=== PATIENT | female | born 1985 | race Caucasian/White ===

== ENCOUNTER 2025-07-23 21:32 | Emergency (ER) | payer MEDICAID, SELFPAY ==
--- OUTSIDE RECORDS SUMMARY | 2017-07-21 07:00 | XMS_ITS | Continuity of Care Document ---
Author Organization [employer] [facility] Address [address] [address] Phone Care Team Providers Care Manager Winter Name Role Phone Emmett Hahn MD Unavailable Unavailable Allergies, Adverse Reactions, Alerts Substance Reaction Status Criticality No Known Allergies Active No Inform ation Medications Medication Instructions Dosage Effective Dates (start - stop) Status Comments Effexor XR 150 mg capsule,extended release take 1 capsule by oral route every day 150 MG - Active Effexor XR 75 mg capsule,extended release take 1 capsule by oral route every day with food 75 MG - Active Total therapeuti c dose is 225 mg daily: one 150mg XR and one 75 mg XR daily. TriNessa (28) 0.18 mg(7)/0.215 mg(7)/0.25 mg(7)-35 mcg tablet take 1 tablet by oral route every day - Active Seroquel 100 mg tablet take 1 tablet by ORAL route every bedtime 100 MG - Active prazosin 5 mg capsule take 1 capsule by oral route every day 5 MG - Active acetaminophen 500 mg tablet take 1 tablet by oral route every 6 hours as needed 500 MG - Active Procedures Procedure Date Urin Pg Test Visual Color Comp 16 Drug Screen; Mx Drug Classes E 16 Offic/outpt E&m New Mod-hi 60 6 Advance Directives Directive Yes / No Effective Date File Name No Information Encounters Encounter Description Practice Location Reason(s) For Visit Diagnoses Date Provider Providers Copied on Encounter [employer] [facility], [address] [address], [place], [place], [id number] , tel: [phone] [facility], [facility]. NB No Information Jovani Christine. [address] [facility], [address], [place], [place], [id number] , . tel: [phone] Offic/outpt E&m New Mod-hi 60 [facility], [address] [facility] [address], [place], [place], [id number] , tel: [phone] [facility], [facility]. NB Heroin dependency and Opiate dependency (chief complaint) Heroin dependenceEncntr for laminated plastics assembler and gluer exam (general) (routine) w/o abn findingsMethamphetam ine dependenceModerate episode of recurrent major depressive disorder Jovani Christine. [address] [facility], [address], [place], [place], [id number] , . tel: [phone] Family History Family Member Type Diagnosis Age At Onset No Information Payers Payer name Insurance type Covered green party ID Authoriza derrick(s) [facility] CI 00 Social History Type Description Quantity Date Captured Comments Sex Female Smoking Status No Information Chief Complaint And Reason For Visit No Information Reason For Referral Reason For Referral No Information History Of Present Illness Encounter Date Complaint History Of Prese nt Illness Heroin dependency an d Opiate dependency 30 year old female admitted to [facility] for Rehab and needs a letter for clearance to fly to [place] tomorrow to [facility]. The Patient has a history of Heroin use x 1 year. She was sober x 2 weeks, but relapsed 1 month ago. She has been using 0.5gms snorts. last use was 2 weeks ago.Also admits to using Opiates (Vicodin/Oxy) x 5 years. She has been using 40-50mg. snort or by mouth per day. Last use was 70 days ago.Also admits to using Meth x 5 years. She has been using 1gm. Smoke/snort per day. Last use was 7 months ago. Prior Treatments: [facility] for Detox/Rehab 21 days and was sober for 2 months. Withdrawal Symptoms: NonePsyche issues: BipolarMedication: Effexor 150mg. once a day and Lasix (?) doseSleep preference: SeroquelSocial: smokes 1 pk per day is single with 3 children ages 13, 10 and 3 and is currently unemployed. Destination after detox: Patient [place] go to [place]: Heroin dependency an d Opiate dependency (comments) Patient has been on non-medical surveillance since arriving at [facility] on Friday05/24/16. She will be transferring to [facility]-owned or related facility in [place].Patient is medically stable for her flight tomorrow, 05/30/16.Patient is Mother of three children, ages 3, 10 and 13, in custody of Father and patient's Mother. Functional Status Date Functional Assessmen t No Information Instructions Date Instruction Additional Infor eitan Urine Drug Screen-HC 3 days per week and Random prn Related to Heroin dependence Assessments Type Assessment Date No Information Patient Care Teams Name Effective Dates (start - stop) Status Members No Information
--- OUTSIDE RECORDS SUMMARY | 2022-07-25 06:46 | XMS_ITS | Continuity of Care Document ---
Author Organization [facility] Address [address] [place] [address] Phone Care Team Providers Care Bee Farmer Name Role Phone Janey Paris APRN Unavailable Unavailable Allergies, Adverse Reactions, Alerts Substance Reaction Status Criticality codeine Nausea Active No Information Problems Condition Type Effective Dates (start - stop) Clini lissette Status Comments No Known Problems Advance Directives Directive Yes / No Effective Date File Name No Information Encounters Encounter Description Practice Location Reason(s) For Visit Diagnoses Date Provider [facility], [address] [place] [address], [id number], tel:[phone] [facility] No Information Jul-[address], [id number] [place], [place], [id number], . tel:[phone] [facility], [address] [place] [address], [id number], tel:[phone] [facility] PAP test (chief complaint) AnxietyEncounter for screening for malignant neoplasm of cervix [address], [id number] [place], [place], [id number], . tel:[phone] [facility], [address] [place] [address], [id number], tel:[phone] [facility] Anxiety (chief complaint)P reventive exam (chief complaint) Body mass index [BMI] 23.0-23.9, adultFatigueAnxietyADHD predominantly inattentive typeEncounter for general adult medical examination without abnormal findings 2 Inga Askew. [address] [place] [address], [id number] [place], [address], [place]. tel:[phone] [facility], [address] [place] [address], [id number], [place] tel:[phone] [facility] Encounter for dental exam and cleaning w abnormal findingsEncounter for dental exam and cleaning w/o abnormal findingsDental caries on pit and fissure surface penetrat into pulp 0 Kevin Davidson. [address], [id number] [place], [place], [id number]. tel:[phone] [facility], [address] [place] [address], [id number], [place] tel:[phone] [facility] Depression (chief complaint)f atigue (chief complaint) FatigueMajor depressive disorder, single episode, unspecified Feb- 6 Erin Ventura. [address] [place] [address], [id number] [place], [place], [id number]. tel:[phone] [facility], [address] [place] [address], [id number], [place] tel:[phone] [facility] Flu-like symptoms (chief complaint) InfluenzaCough Jan-0 2 6 Mannie Rain. [address] [place] [address], [id number] [place], [place], [id number]. tel:[phone] [facility], [address] [place] [address], [id number], [place] tel:[phone] [facility] Arthalgias (chief complaint) Carpal tunnel syndrome, unspecified upper limb Feb-0 4 6 Mannie Rain. [address] [place] [address], [id number] [place], [place], [id number]. tel:[phone] [facility], [address] [place] [address], [id number], tel:[phone] [facility] Wann Rash (chief complaint) Abscess 4 Mannie Rain. [address] [place] [address], [id number] [place], [place], [id number]. tel:[phone] [facility], [address] [place] [address], [id number], tel:[phone] PM [facility] rash (chief complaint) Rash and other nonspecific skin eruptionDepression 4 No Information [facility], [address] [place] [address], [id number], tel:[phone] [facility] sinus symptoms (acute) (chief complaint)r poli (chief complaint) CoughSinusitis, AcuteDermatophytosis of other specified sites 3 Akil Crystal. [address] [place] [address], [id number] [place], [place], [id number], [place]. tel:[phone] [facility], [address] [place] [address], [id number], tel:[phone] PM [facility] infection (soft tissue) (chief complaint) Cellulitis 3 No Information Family History Family Member Type Diagnosis Age At Onset Mother Problem (finding) diabetes melli tus in first degree relative Maternal grandmother Problem (finding) tremors Payers Payer name Insurance type Covered republican ID Authoriza tion(s) No Information Social History Type Description Quantity Date Captured Comments Alcohol Use Details Unknown Caffeine Use Details Unknown Tobacco Use Status No Information Smoking Status No Information Sex Female Sexual Orientation Straight or heterosexual Gender Identity Female Chief Complaint And Reason For Visit No Information Plan Of Treatment Date Type Action Status Goal Unhealthy drug use screening due Goal Hepatitis C Scre ening. Due on due Goal PICKER BOX OPERATOR exam. Due on due Goal Lipid Panel. Due on due Goal PAP. Due on due Goal H&P. Due on due Goal HPV. Due on due Goal PICKER BOX OPERATOR exam. Due on due Goal Hepatitis C Scre ening. Due on due Goal HPV. Due on due Goal PAP. Due on due Goal Unhealthy drug use screening due Goal H&P. Due on due Goal Lipid Panel. Due on due Goal H&P. Due on due Goal Lipid Panel. Due on due Goal PICKER BOX OPERATOR exam. Due on due Goal PAP. Due on due Goal Hepatitis C Scre ening. Due on due Goal HPV. Due on due Goal Unhealthy drug use screening due Goal Lifestyle education regardin g diet completed Goal Tdap. Due on due Goal Influenza vaccine. Due on due Goal Diabetes Screening. Due on A due Goal Pap/HPV testing. Due on due Goal PAP. Due on due Goal PICKER BOX OPERATOR exam. Due on due Goal Td vaccine. Due on 16 due Goal Breast exam. Due on 016 due Goal Influenza vaccine. Due on due Goal Breast exam. Due on 016 due Goal Diabetes Screening. Due on due Goal Td vaccine. Due on 16 due Goal Pap/HPV testing. Due on due Goal PAP. Due on due Goal PICKER BOX OPERATOR exam. Due on due Goal Tdap. Due on due Goal H&P. Due on due Goal Influenza vaccine. Due on due Goal Diabetes Screening. Due on due Goal Screening Summary. Due on due Goal Anxiety/Depressi on Screen (PHQ-2). Due on due Goal Breast exam. Due on 016 due Goal PAP. Due on due Goal PICKER BOX OPERATOR exam. Due on due Goal Tdap. Due on due Goal Td vaccine. Due on 16 due Goal Pap/HPV testing. Due on due Goal PICKER BOX OPERATOR exam. Due on due Goal Influenza vaccine. Due on due Goal PAP. Due on due Goal Td vaccine. Due on 14 due Goal Breast exam. Due on 014 due Goal Tdap. Due on due Goal Td vaccine. Due on 14 due Goal PAP. Due on due Goal Screening Summary. Due on due Goal Tdap. Due on due Goal Breast exam. Due on 013 due Goal PICKER BOX OPERATOR exam. Due on due Referral Ordered: Referrals: Psychiatry. Evaluate and treat Appointment date/timeframe: 3 Days ordered Referral Ordered: Referrals: Social Work. Evaluate and treat ordered Referral Ordered: Referrals: Orthopedic Surgery. Follow-up and Treat ordered Future Order: Lab Order CBC With Differential/Platelet ([id number]), Ordered on: Ordered Future Order: Lab Order Comp. Me tabolic Panel (14) ([id number]), Ordered on: Ordered Future Order: Lab Order Hepatiti s C virus NS5A drug resistance ([id number]), Ordered on: Ordered Future Order: Lab Order Lipid Pa renate w/ Chol/HDL Ratio ([id number]), Ordered on: Ordered Future Order: Lab Order Vitamin D, 25-Hydroxy ([id number]), Ordered on: Ordered Future Order: Lab Order Urinalys is, Routine ([id number]), Ordered on: Ordered Future Order: Lab Order TSH ([id number]), Ord ered on: Ordered History Of Present Illness Encounter Date Complaint History Of Prese nt Illness PAP test Last LMP was 07/2022. Negative for: breast discharge, breast lump(s) and breast pain. Positive for: breast self exam. Associated symptoms include anxiety. Pertinent negatives include abnormal bleeding (hematology), abnormal vaginal bleeding, decreased libido, depression, difficulty falling sleep, dyspareunia, history of infertility, nocturia, sexual dysfunction, sleep disturbances, urinary incontinence, urinary urgency, vaginal discharge and vaginal itching. Diet healthy. The client does not use tobacco. She does drink alcohol. Preventive exam Menopausal sympt oms negative for: night sweats. Associated symptoms include anxiety and difficulty falling sleep. Pertinent negatives include depression and urinary incontinence. Diet healthy. The client does not use tobacco. She does drink alcohol. Additional information: pt is here for a physical. pt needs to be evaluated for ADHD and worseing anxiety/depression. pt is also requesting labs. pt was recommended to have a pap. . Anxiety There is worseni ng of previously reported symptoms. The client reports functioning as somewhat difficult. The client presents with anxious/fearful thoughts, difficulty concentrating, difficulty falling asleep, diminished interest or pleasure and fatigue but denies compulsive thoughts, decreased need for sleep, depressed mood, difficulty staying asleep, easily startled, excessive worry, feelings of guilt, feelings of invulnerability, increased energy, hallucinations, increased libido, loss of appetite, paranoia, poor judgment, racing thoughts, restlessness or thoughts of or suicide. The client's risk factors exclude alcoholism, childhood abuse or neglect, chronic illness, of a friend or loved one, drug abuse, family history of depression, family history of anxiety, family history of bipolar disorder, financial worries, history of depression, history of suicidal attempts, medications, recent childbirth, relationship problems, social isolation, unemployment and victim of abuse or violence. The Anxiety is aggravated by social interactions but not with alcohol use, conflict or stress, drug use, lack of sleep, menstruation, traumatic memories or winter season. The client's symptoms are not relieved by alcohol, cessation of menses, drugs, exercise, medications, sunlight or warm weather. The client denies any chronic pain, headache, irritability, nausea, sweating, trembling, urinary frequency, vomiting and weight gain. Depression There is worseni ng of previously reported symptoms. The patient reports functioning as very difficult. The patient presents with anxious/fearful thoughts, depressed mood, difficulty concentrating, difficulty falling asleep, diminished interest or pleasure, easily startled, fatigue and feelings of guilt. The patient's risk factors include of a friend or loved one, family history of anxiety, financial worries, history of depression, recent childbirth and relationship problems. The Depression is aggravated by conflict or stress. Interventions the patient has tried have not provided any relief. Additional information: prior of father at age 7, reports has never gotten over this , recent battles with ex (FOB) over possible custody riley. fatigue This is an initi al visit. The symptom(s) began gradually. The symptoms have worsened. The patient presents with difficulty concentrating and fatigue. Risk factors include depression. The symptoms are aggravated by lack of sleep, stress and work issues. Interventions the patient has tried have not provided any relief. The fatigue is associated with loss of interest and myalgia. Flu-like symptoms The symptoms b jyoti 1 day ago. The patient presents with chills, cough, fatigue, fever, generalized weakness and pharyngitis. The illness is associated with rhinorrhea. Arthalgias Onset: 2 weeks a go. It occurs intermittently and is worsening. Location: bilateral hand (finger(s)). The pain radiates to the arms bilaterally. The pain is numbness and stings. Context: there is no injury. Additional information: states both hands are painful and fingers are numb. Rash The patient pres ents for Rash. This episode began 1 week ago. The symptom(s) are described as mild, worse and occurs infrequently. Affected area(s) include left arm. The patient describes the affected area(s) as burning, itchy, oozing and red. Associated symptoms include erythema (skin) and pruritus. Additional information: did napply topical rx from her boyfriend. Instructions Date Instruction Additional Infor eitan Healthy diet and exe rciseMonthly self breast exam Related to Encounter for screening for malignant neoplasm of cervix RTC after appt Related to Anxie ty [facility] - Information e xplained to pt in a way that is easy to understand, and pt expressed understanding after all questions were answered and treatment options were discussed. Sufficient time was taken to carefully listen to the pt and caregiver, when appropriate. Addressed their concerns, health problems, worries , stressors and mental health.addressed concerns, health problems, worries, stressors, and mental health. Related to Encounter for general adult medical examination without abnormal findings Weight monitoring Related to Bod y mass index [BMI] 23.0-23.9, adult Lifestyle education regarding di et Related to Body mass index [BMI] 23.0-23.9, adult rx sent Related to Cough + A; rx tamiflu Related to Influ bear has slight relief w OTC Ib- will rx Ib for her and place orthopedic referral for possible surgery; lbs ordered Related to Carpal tunnel syndrome, unspecified upper limb IM rocephin and f/u w sabina atb; warm soaks urged and RTC if no better Related to Abscess Assessments Type Assessment Date No Information
[2025-07-23 21:42] VITALS: BP 122/77; PULSE 102; RESP 16; TEMP 36.9; O2SAT 98; BMI 25.8
--- NOTE | 2025-07-23 22:56 | CTR_ITS ---
PROCEDURE INFORMATION: Exam: CT Abdomen And Pelvis With Contrast Exam date and time: 07/24/2025 12:24 AM Age: 40 years old Clinical indication: Nausea and vomiting; Abdominal pain; Generalized; Prior surgery; Surgery date: 6+ months; Surgery type: Procedure for ectopic. Patient did not specify. ; Additional info: Diffuse abd pain TECHNIQUE: Imaging protocol: Computed tomography of the abdomen and pelvis with contrast. Radiation optimization: All CT scans at this facility use at least one of these dose optimization techniques: automated exposure control; mA and/or kV adjustment per patient size (includes targeted exams where dose is matched to clinical indication); or iterative reconstruction. Contrast material: OMNI 350; Contrast volume: 100 ml; Contrast route: INTRAVENOUS (IV); COMPARISON: No relevant prior studies available. RADIATION DOSE METRICS: Total DLP (mGy-cm): 631.08 FINDINGS: Lungs: Clear basilar lung parenchyma. Pleural spaces: No pleural fluid. Heart: Normal heart size. Liver: Homogeneous low attenuation throughout the liver is compatible with fatty infiltration. Liver measures 19.7 cm in length. Gallbladder and biliary ducts: Postprandial gallbladder is contracted around several gallstones. No biliary tree dilation. Pancreas: No pancreatic edema or mass. Spleen: Spleen measures 11.3 cm in length. Adrenal glands: Normal configuration. Kidneys and ureters: Kidneys enhance symmetrically and demonstrate no evidence of mass, calculus, obstruction, or inflammation. Stomach and bowel: Postprandial stomach without visible mass or ulcer. Normal caliber small bowel. Large volume fecal debris noted throughout the colon. No bowel wall thickening. Appendix: Normal appendix is confirmed. Intraperitoneal space: No free air. No significant fluid collection. Vasculature: Mild aortoiliac calcific atherosclerosis without aneurysm. Mesenteric arteries enhance normally. Patent bilateral renal arteries. Patent portal vein and tributaries. Normal appearing systemic venous structures. Patent hepatic veins. Lymph nodes: No enlarged lymph nodes. Urinary bladder: Unremarkable as visualized. Reproductive: Physiologic appearance of the uterus and ovaries. Recently ruptured left ovarian follicle noted. Bones/joints: No fracture or destructive lesion. Soft tissues: Unremarkable. CT/CT abdomen pelvis w con* [id number] IMPRESSION: 1. Large volume fecal debris throughout the colon suggests constipation which could be symptomatic. Otherwise no acute abnormality identified to explain patient's abdomen pain. A normal appendix is confirmed and there is no evidence of urolithiasis. The postprandial gallbladder is contracted despite presence of gallstones. No features of cholecystitis are evident. 2. The stomach is distended with ingested material. Given patient's symptoms of nausea and vomiting, if there are clinical concerns for gastroparesis, nuclear medicine gastric emptying study may be helpful.
--- NOTE | 2025-07-23 23:03 | ED_ITS ---
HPI - Abdominal Pain 2 General: Chief Complaint: Abdominal Pain Stated Complaint: abd pain and breast, flank pain also Time Seen by Provider: 07/23/25 21:37 Source: patient Mode of arrival: ambulatory Limitations: no limitations History of Present Illness: This patient is a 40-year-old female who presents emergency department complaining of abdominal pain. She states that she thinks she is having a gallbladder attack and that she has followed up with provider [place] in regards to possibly having it removed. I have no previous records of her being seen here in the emergency department or seeing general surgery here. She also states that she is having pain in her ovaries and kidneys. Pain began 30 minutes prior to coming in to the emergency department, states that it has since subsided. She has been having nausea for a few days, no vomiting or diarrhea. Currently stating that the pain she does have is diffuse but mild. She is been taking Tylenol and ibuprofen. She has been in a recovery home for the past few days as well, and states that there is a chance that she might be due to some tenderness in her breasts. Her vitals are stable, she is nontoxic- appearing at this time. No fevers reported. No previous abdominal surgeries reported. MD elicited complaint: abdominal pain Onset (ago): hour(s) Pain Consistency: other (improved) Location: Diffuse Severity: mild Quality: cramping Associated Symptoms: Reports nausea; Denies bloating, change in stool character, chills, constipation, diarrhea, dysuria, fever(s), hematochezia, hematuria and vomiting Related Data Previous Rx's ?Medication ?Instructions ?Recorded polyethylene glycol 3350 17 4 g PO DAILY #119 grams gram/dose oral powder (Miralax) Allergies Allergy/AdvReac Type Severity Reaction Status Date / Time haloperidol (From Haldol) Allergy Unknown Verified 07/23/25 21:50 any psych med Allergy Unknown Uncoded 07/23/25 21:50 Review of Systems 2 General: Reports: 10 or more systems reviewed and unremarkable except in HPI and below Const: Denies: fever(s), chills, change in appetite, change in weight or diaphoresis ENMT: Denies: throat pain or hoarseness Card: Denies: chest pain, palpitations or lightheadedness Resp: Denies: dyspnea, productive cough or wheezing GI: Reports: abdominal pain and nausea; Denies: vomiting, diarrhea, constipation, bloating, change in stool character or hematochezia : Reports: flank pain; Denies: difficulty voiding, dysuria, urinary frequency, urinary urgency, hematuria, vaginal bleeding or vaginal discharge Musc: Denies: neck pain or back pain Skin/Breast: Denies: rash or new lesions Neuro: Denies: headache(s) or dizziness Physical Exam 2 Const: COMMON NORMALS: no acute distress, average body habitus, patient oriented x3, no limitations, healthy appearing, alert and well nourished G ENERAL APPEARANCE: cooperative and comfortable ORIENTATION/CONSCIOUSNESS: Yes awake Eye: COMMON NORMALS: Equal, round and reactive pupils present, EOMs intact bilaterally, conjunctivae normal and normal visual pelletier by confrontation C ONJUNCTIVA: Yes conjunctivae normal PUPIL: Yes Equal, round and reactive pupils present Neck/C-Spine: COMMON NORMALS: full ROM, supple, no meningeal signs and no JVD Resp: COMMON NORMALS: normal respiratory effort, No retractions, No use of accessory muscles and clear to auscultation bilaterally AUSCULTATION: clear to auscultation bilaterally, no crackles, no rales, no rhonchi and no wheezes Cardio: COMMON NORMALS: no JVD, regular rate, regular rhythm, No gallops present (Cardio), No clicks present (Cardio), No murmurs present (Cardio) and No rub (Cardio) RATE: regular rate RHYTHM: regular rhythm GI: COMMON NORMALS: Soft to palpation, No hepatosplenomegaly present and no masses AUSCULTATION: Yes normoactive bowel sounds PALPATION: Yes Soft to palpation, No Guarding due to palpation present (GI), No Rigid due to palpation and Yes No hepatosplenomegaly present RECTAL EXAM: deferred OTHER: Diffuse tender to palpation : COMMON NORMALS: Yes no CVA tenderness BLADDER/KIDNEY EXAM: Yes no CVA tenderness Back/Pelvis: COMMON NORMALS: no CVA tenderness Extremity: COMMON NORMALS: normal to inspection and full ROM Neuro: COMMON NORMALS: patient oriented x3, moves all extremities, no focal motor deficits and no sensory deficits noted SENSORIUM/ORIENTATION: Yes alert MENINGEAL SIGNS: Yes no meningeal signs Psych: COMMON NORMALS: mental status grossly normal, cooperative and speech normal SPEECH: Yes normal speech Skin: COMMON NORMALS: no rashes or lesions noted GENERAL SKIN EXAM: no rashes or lesions noted Course 2 Vital Signs: Vital signs: Vital Signs Temperature 98.4 F 07/23/25 21:42 Pulse Rate 94 07/24/25 01:00 Respiratory Rate 16 07/23/25 21:42 Blood Pressure 104/64 07/24/25 01:00 Pulse Oximetry 95 07/24/25 01:00 Oxygen Delivery Me thod Room Air 07/24/25 01:00 MDM - Abdominal Pain Medical Decision Making Patient presented with diffuse abdominal pain, stating she was having a gallbladder attack. Also was concerned about her ovaries and that she might be . Mild diffuse tenderness palpation on exam, nonspecific. Rest of her exam was reassuring and her vitals have been stable. She is nontoxic- appearing as well. Labs were all unremarkable, negative. No UTI on her urinalysis. However on CT there is large volume focal debris suggesting constipation, and I do think that this is cause for her pain. She states that she did just buy MiraLAX today she thought that this was what was going on, told her to take this and I also will send her home with mixture mineral oil, mag citrate, and lactulose to help clear her out. Told her to increase fluid intake and dietary fiber and return with any new or worsening. She agrees with this plan. Lab Data 07/23/25 23:16 07/23/25 23:16 Labs/Radiology: Radiology Impressions Abdomen/Pelvis CT 07/23/25 22:56 IMPRESSION: 1. Large volume fecal debris throughout the colon suggests constipation which could be symptomatic. Otherwise no acute abnormality identified to explain patient's abdomen pain. A normal appendix is confirmed and there is no evidence of urolithiasis. The postprandial gallbladder is contracted despite presence of gallstones. No features of cholecystitis are evident. 2. The stomach is distended with ingested material. Given patient's symptoms of nausea and vomiting, if there are clinical concerns for gastroparesis, nuclear medicine gastric emptying study may be helpful. Laboratory Results WBC 10.16 10^3/uL (3.29-11.43) 07/23/25 23:16 RBC 3.81 10^6/uL (3.85-5.65) L 07/23/25 23:16 Hgb 11.30 g/dL (11.27-16.99) 07/23/25 23:16 Hct 34.5 % (36-47) L 07/23/25 23:16 MCV 90.6 fl (85-98) 07/23/25 23:16 MCH 29.7 pg (27-33) 07/23/25 23:16 MCHC 32.8 g/dL (30-55) 07/23/25 23:16 RDW 15.4 % (12.1-15.1) H 07/23/25 23:16 Plt Count 205 10^3/cmm (157-399) 07/23/25 23:16 MPV 9.8 fL (7.4-10.4) 07/23/25 23:16 Neut % (Auto) 61.8 % 07/23/25 23:16 Lymph % (Auto) 30.1 % 07/23/25 23:16 [place] % (Auto) 5.6 % 07/23/25 23:16 Eos % (Auto) 2.1 % 07/23/25 23:16 Baso % (Auto) 0.2 % 07/23/25 23:16 Neut # (Auto) 6.28 10^3/uL (1.8-7.7) 07/23/25 23:16 Lymph # (Auto) 3.1 10^3/uL (0.8-4.8) 07/23/25 23:16 [place] # (Auto) 0.6 10^3/uL (0.2-0.9) 07/23/25 23:16 Eos # (Auto) 0.2 10^3/uL (0.0-0.8) 07/23/25 23:16 Baso # (Auto) 0.0 10^3/uL (0.0-0.1) 07/23/25 23:16 Nucleated RBC % (auto) 0 % 07/23/25 23:16 Nucleated RBCs # 0.0 /100WBC 07/23/25 23:16 Sodium 137 mmol/L (136-145) 07/23/25 23:16 Potassium 4.1 mmol/L (3.5-5.1) 07/23/25 23:16 Chloride 100 mmol/L (98-107) 07/23/25 23:16 Carbon Dioxide 28 mmol/L (22-29) 07/23/25 23:16 Anion Gap 13.1 (5-19) 07/23/25 23:16 BUN 18 mg/dL (6-20) 07/23/25 23:16 Creatinine 0.8 mg/dL (0.5-0.9) 07/23/25 23:16 GFR Calculation 78.7 mL/min (90-130) L 07/23/25 23:16 Glucose 98 mg/dL (65-115) 07/23/25 23:16 Calculated Osmolality 286 mOsm/kg (285-295) 07/23/25 23:16 Calcium 9.1 mg/dL (8.5-10.5) 07/23/25 23:16 Total Bilirubin 0.2 mg/dL (0.15-1.2) 07/23/25 23:16 AST 13 U/L (0-32) 07/23/25 23:16 ALT 14 U/L (0-33) 07/23/25 23:16 Alkaline Phosphatase 102 U/L (35-105) 07/23/25 23:16 Total Protein 6.9 g/dL (6.6-8.7) 07/23/25 23:16 Albumin 3.9 g/dL (3.5-5.2) 07/23/25 23:16 Globulin 3.0 g/dL (1.3-4.6) 07/23/25 23:16 Lipase 44 U/L (13-60) 07/23/25 23:16 HCG, Qual Negative (Negative) 07/23/25 23:17 Urine Color Yellow (Yellow) 07/23/25 23:17 Urine Appearance Cloudy (CLEAR) A 07/23/25 23:17 Urine pH 7.5 (5-7) 07/23/25 23:17 Ur Specific [place] 1.019 (1.005-1.030) 07/23/25 23:17 Urine Protein Negative (Negative) 07/23/25 23:17 Urine Glucose (UA) Negative (Normal) 07/23/25 23:17 Urine Ketones Negative (Negative) 07/23/25 23:17 Urine Blood Negative (Negative) 07/23/25 23:17 Urine Nitrate Negative (Negative) 07/23/25 23:17 Urine Bilirubin Negative (Negative) 07/23/25 23:17 Urine Urobilinogen 1.0 mg/dL (Negative) 07/23/25 23:17 Ur Leukocyte Esterase Negative (Negative) 07/23/25 23:17 Urine RBC 0-2 /hpf (0-2) 07/23/25 23:17 Urine WBC 0-5 /hpf (0-5) 07/23/25 23:17 Ur Squamous Epith Cells 0-5 /hpf (0-5) 07/23/25 23:17 Amorphous Sediment Not Reportable 07/23/25 23:17 Urine Bacteria None seen /hpf (NONE) 07/23/25 23:17 Hyaline Casts 0-4 /lpf H 07/23/25 23:17 All radiology interpretation(s) finalized by discharge Discharge Plan Discharge Patient Disposition: Home Clinical Impression: Constipation Qualifiers: Constipation type: unspecified constipation type Qualified Code(s): K59.00 - Constipation, unspecified Condition: Stable Prescriptions: New polyethylene glycol 3350 [Miralax] 17 gram/dose powder 4 g PO DAILY Qty: 119 0RF Discharge Orders: Discharge ED (Routine); Ordered 07/24/25 Ordered By: John Muniz Patient Instructions: Patient Portal & [facility] Instructions Activity Restrictions/Additional Instructions: Constipation Discharge Instructions Discharge Instructions: Constipation Diagnosis Context: 40-year-old female with constipation. No acute pathology identified on CT abdomen/pelvis; laboratory results reassuring. 1. Education and Reassurance - No evidence of bowel obstruction, mass, or acute disease. - Constipation is common and often functional; most cases respond to conservative management. 2. Lifestyle and Dietary Modifications (First-Line Therapy) - Increase dietary fiber: Target 20?35 g/day from food sources (whole grains, fruits, vegetables, legumes). Gradually titrate to minimize bloating. - Both soluble and insoluble fiber are effective; a combination is often better tolerated than psyllium alone. - Hydration: Aim for at least 1.5?2 liters of water daily, unless contraindicated. - Physical activity: Encourage regular exercise (e.g., brisk walking 20?30 min most days). - Regular toileting habits: Respond promptly to the urge to defecate; avoid prolonged straining or delaying bowel movements. - Meal timing: Consuming meals >=00 kcal can stimulate colonic motility. 3. Medication Review - Discontinue or adjust medications that may contribute to constipation (e.g., opioids, anticholinergics, calcium channel blockers, iron, calcium supplements) if clinically appropriate. 4. Pharmacologic Therapy (If Lifestyle Measures Insufficient) - Bulk-forming agents: Psyllium, methylcellulose, or polycarbophil may be used if dietary fiber is inadequate or not tolerated. - Osmotic laxatives: Polyethylene glycol (PEG), lactulose, or magnesium hydroxide are appropriate first-line agents if fiber alone is insufficient. - PEG 3350: Typical adult dose is 17 g dissolved in 4?8 oz of water once daily; titrate to effect. - Stimulant laxatives: Bisacodyl or senna may be used as rescue therapy or second-line agents if needed. - Use intermittently to avoid dependence. 5. Additional Measures - Consider use of a footstool during defecation to optimize anorectal angle. - Treat any coexisting anorectal conditions (e.g., hemorrhoids, fissures) as indicated. 6. Follow-Up and When to Seek Care - Schedule outpatient follow-up if symptoms persist beyond 4?6 weeks despite above measures, or sooner if symptoms worsen. - Return for evaluation if any of the following develop: - New or worsening abdominal pain - Vomiting - Rectal bleeding - Unintentional weight loss - Change in stool caliber - Family history of colorectal cancer - Symptoms of bowel obstruction (e.g., inability to pass gas or stool, severe distention) 7. Referral Considerations - If refractory to first- and second-line therapy, consider referral to gastroenterology for further evaluation (e.g., anorectal manometry, balloon expulsion test, colonic transit studies). - Pelvic floor therapy with biofeedback may be indicated for suspected defecatory disorders. Summary: Most cases of constipation without alarm features or acute pathology respond to conservative management. Escalate therapy as needed and monitor for development of concerning symptoms. Print Language: Danish Coding Level of Care Code ED Internet Marketing Analyst for Kenneth Frazier
[2025-07-23 23:20] LABS: Hematocrit 34.5 % (36-47); Hemoglobin 11.30 g/dL (11.27-16.99); Mean Corpuscular HGB Conc 32.8 g/dL (30-55); Mean Corpuscular Hemoglobin 29.7 pg (27-33); Mean Corpuscular Volume 90.6 fl (85-98); Nucleated Red Blood Cells % 0 %; Platelet Count 205 10^3/cmm (157-399); Red Blood Count 3.81 10^6/uL (3.85-5.65); White Blood Count 10.16 10^3/uL (3.29-11.43)
[2025-07-23] MEDS: ondansetron 2 mg/ML SDV 2 mL 4 MG IVP (23:36)
[2025-07-23 23:41] VITALS: BP 104/60; PULSE 84; O2SAT 96
[2025-07-23 23:46] LABS: Alanine Aminotransferase 14 U/L (0-33); Albumin Level 3.9 g/dL (3.5-5.2); Alkaline Phosphatase 102 U/L (35-105); Anion Gap 13.1 (5-19); Aspartate Amino Transferase 13 U/L (0-32); Blood Urea Nitrogen 18 mg/dL (6-20); Calcium 9.1 mg/dL (8.5-10.5); Carbon Dioxide 28 mmol/L (22-29); Chloride 100 mmol/L (98-107); Creatinine Clr Calc Pharmacy 100.0531; Globulin 3.0 g/dL (1.3-4.6); Glucose 98 mg/dL (65-115); Lipase 44 U/L (13-60); Osmolality Calculated 286 mOsm/kg (285-295); Potassium 4.1 mmol/L (3.5-5.1); Sodium 137 mmol/L (136-145); Total Protein 6.9 g/dL (6.6-8.7)
[2025-07-24 00:04] LABS: HCG Qualitative Urine. Negative (Negative)
[2025-07-24] MEDS: iohexol 350 mg/mL 500 mL Btl (per mL) IV (00:26)
[2025-07-24 01:00] VITALS: BP 104/64; PULSE 94; O2SAT 95
[2025-07-24 01:02] LABS: Glucose Urine UA Negative (Normal); Nitrate Urine Negative (Negative); Specific Gravity, Urine 1.019 (1.005-1.030)
[2025-07-24 01:07] LABS: Add Urine Microscopic? YES
[2025-07-24] MEDS: lactulose oral liq 20 gm/30 mL UDC 30 GM PO (02:01)
[2025-07-24] MEDS: magnesium citrate Btl 296 mL PO (02:02)
== END 2025-07-24 02:04 | disposition home or self-care (01) ==
PROVIDERS: Emergency Provider Physician Assistant
DX: K59.00 Constipation, unspecified (principal)
CPT/HCPCS: 36415; 74177; 80053; 81001; 81025; 83690; 85025; 96361; 96374; 99285; J2405; J7040; J9999

== ENCOUNTER 2025-07-29 12:05 | Inpatient (IN) | payer MEDICAID, SELFPAY ==
--- NOTE | 2025-07-29 12:11 | W.ED.PSYCHS ---
HPI - Psych General: Chief Complaint: Psychiatric Symptoms Stated Complaint: 96 History of Present Illness: 40-year-old female with a history of psychiatric issues and who is in a recovery center who presents emergency room from psychiatric clinic on a 96-hour hold. Apparently at the recovery unit she is at she would remain naked and try to hug the other people that were there. She reported to therapist that she was currently suicidal. When I talk to her she has flight of ideas and does report that she feels suicidal. Related Data Previous Rx's ?Medication ?Instructions ?Recorded polyethylene glycol 3350 17 4 g PO DAILY #119 grams 07/24/25 gram/dose oral powder (Miralax) cephalexin 500 mg tablet 500 mg PO TID 7 days #21 tabs 07/29/25 Allergies Allergy/AdvReac Type Severity Reaction Status Date / Time haloperidol (From Haldol) Allergy Unknown Verified 07/23/25 21:50 any psych med Allergy Unknown Uncoded 07/23/25 21:50 Review of Systems Narrative: Constitutional symptoms: Negative except as documented in HPI. Skin symptoms: Negative except as documented in HPI. Eye symptoms: Negative except as documented in HPI. ENMT symptoms: Negative except as documented in HPI. Respiratory symptoms: Negative except as documented in HPI. Cardiovascular symptoms: Negative except as documented in HPI. Gastrointestinal symptoms: Negative except as documented in HPI. Genitourinary symptoms: Negative except as documented in HPI. Musculoskeletal symptoms: Negative except as documented in HPI. Neurologic symptoms: Negative except as documented in HPI. Psychiatric symptoms: Negative except as documented in HPI. Endocrine symptoms: Negative except as documented in HPI. Physical Exam Narrative: EXAM NARRATIVE: General: Alert, no acute distress. Skin: Warm, dry. Head: Normocephalic, atraumatic. Neck: Supple, trachea midline. Eye: Extraocular movements are intact. Ears, nose, mouth and throat: mucosa moist. Cardiovascular: Regular, Normal peripheral perfusion. Respiratory: Lungs are clear to auscultation, respirations are non-labored, breath sounds are equal, Symmetrical chest wall expansion. Gastrointestinal: Soft, Nontender, Non distended Musculoskeletal: Normal ROM, no deformity. Neurological: Alert and oriented, No focal neurological deficit observed. Psychiatric: Pressured speech at times, she does endorse suicidal thoughts. She wants help she says Course Vital Signs: Vital signs: Vital Signs Temperature 98.1 F 07/29/25 12:19 Pulse Rate 100 07/29/25 12:19 Respiratory Rate 18 07/29/25 12:19 Blood Pressure 167/72 07/29/25 12:19 Pulse Oximetry 99 07/29/25 12:19 Oxygen Delivery Me thod Room Air 07/29/25 12:19 MDM - Psych Medical Decision Making Medical decision making: Differential diagnosis for patient with reported psychosis and suicidal ideation with plan for psychiatric admission including but not limited to and based on the above HPI, review of systems and physical exam: concerns for infection, alcohol intoxication, cardiac issues or other medical problems prior to psychiatric admission. Orders placed to evaluate differential diagnosis based on the above differential, HPI and physical exam labwork, ekg ordered to evaluate the pathologies and to clear the patient medically prior to psychiatric admission EKG: Time 1235. Rate 79. Normal sinus rhythm, No ST-T changes, no ectopy, normal MN & QRS intervals, This was reviewed and interpreted by myself the ER physician at 1240 Lab Review: Laboratory results were reviewed and interpreted by myself the emergency room physician. - Medically cleared. - EKG shows no ischemic changes. - Blood alcohol level is negative, as well as salicylate and Tylenol. - Drug screen is negative - Patient does have urinary tract infection. First dose of Keflex here. Recommend 500 mg 3 times daily for the next 7 days. - No anemia. - BUN and creatinine are within normal limits. I reviewed the patient's medical record. Consultation: I spoke with Dr. Lopez who is on-call for psychiatry who agrees to admission. Assessment and plan: Suicidal ideation Psychosis Urinary tract infection ?First dose Keflex in the emergency room -Admission to neuropsychiatric unit for continued evaluation and treatment. - All lab work was reviewed and interpreted personally by myself, the ER physician - Evaluation and treatment of this problem were appropriate in the emergency setting Lab Data 07/29/25 12:26 07/29/25 12:26 Laboratory Results WBC 8.74 10^3/uL (3.29-11.43) 07/29/25 12:26 RBC 3.74 10^6/uL (3.85-5.65) L 07/29/25 12:26 Hgb 11.20 g/dL (11.27-16.99) L 07/29/25 12:26 Hct 33.7 % (36-47) L 07/29/25 12: MCV 90.1 fl (85-98) 07/29/25 12: MCH 29.9 pg (27-33) 07/29/25 12: MCHC 33.2 g/dL (30-55) 07/29/25 12: RDW 15.4 % (12.1-15.1) H 07/29/25 12: Plt Count 280 10^3/cmm (157-399) 07/29/25 12: MPV 9.6 fL (7.4-10.4) 07/29/25 12: Neut % (Auto) 56.8 % 07/29/25 12: Lymph % (Auto) 35.4 % 07/29/25 12: [place] % (Auto) 5.0 % 07/29/25 12: Eos % (Auto) 2.1 % 07/29/25 12: Baso % (Auto) 0.5 % 07/29/25 12: Neut # (Auto) 4.97 10^3/uL (1.8-7.7) 07/29/25 12: Lymph # (Auto) 3.1 10^3/uL (0.8-4.8) 07/29/25 12: [place] # (Auto) 0.4 10^3/uL (0.2-0.9) 07/29/25 12: Eos # (Auto) 0.2 10^3/uL (0.0-0.8) 07/29/25 12: Baso # (Auto) 0.0 10^3/uL (0.0-0.1) 07/29/25 12: Nucleated RBC % (auto) 0 % 07/29/25 12: Nucleated RBCs # 0.0 /100WBC 07/29/25 12:26 Sodium 137 mmol/L (136-145) 07/29/25 12: Potassium 3.8 mmol/L (3.5-5.1) 07/29/25 12: Chloride 102 mmol/L (98-107) 07/29/25 12: Carbon Dioxide 24 mmol/L (22-29) 07/29/25 12: Anion Gap 14.8 (5-19) 07/29/25 12:26 BUN 15 mg/dL (6-20) 07/29/25 12:26 Creatinine 0.6 mg/dL (0.5-0.9) 07/29/25 12:26 GFR Calculation 109.6 mL/min (90-130) 07/29/25 12: Glucose 104 mg/dL (65-115) 07/29/25 12:26 Calculated Osmolality 285 mOsm/kg (285-295) 07/29/25 12:26 Calcium 8.7 mg/dL (8.5-10.5) 07/29/25 12: Total Bilirubin 0.2 mg/dL (0.15-1.2) 07/29/25 12: AST 8 U/L (0-32) 07/29/25 12: ALT 6 U/L (0-33) 07/29/25 12: Alkaline Phosphatase 101 U/L (35-105) 07/29/25 12: Total Protein 6.9 g/dL (6.6-8.7) 07/29/25 12: Albumin 3.7 g/dL (3.5-5.2) 07/29/25 12: Globulin 3.2 g/dL (1.3-4.6) 07/29/25 12: TSH 1.50 uIU/mL (0.27-4.20) 07/29/25 12:26 HCG, Qual Negative (Negative) 07/29/25 12:20 Urine Color [place] (Yellow) A 07/29/25 12:20 Urine Appearance Cloudy (CLEAR) A 07/29/25 12:20 Urine pH 5.0 (5-7) 07/29/25 12:20 Ur Specific [place] 1.024 (1.005-1.030) 07/29/25 12:20 Urine Protein 1+ (Negative) A 07/29/25 12:20 Urine Glucose (UA) Negative (Normal) 07/29/25 12:20 Urine Ketones Trace (Negative) 07/29/25 12:20 Urine Blood 3+ (Negative) A 07/29/25 12:20 Urine Nitrate Negative (Negative) 07/29/25 12:20 Urine Bilirubin Negative (Negative) 07/29/25 12:20 Urine Urobilinogen 1.0 mg/dL (Negative) 07/29/25 12:20 Ur Leukocyte Esterase 1+ (Negative) A 07/29/25 12:20 Urine RBC 11-20 /hpf (0-2) H 07/29/25 12:20 Urine WBC 51-100 /hpf (0-5) H 07/29/25 12:20 Ur Squamous Epith Cells 11-20 /hpf (0-5) H 07/29/25 12:20 Amorphous Sediment Not Reportable 07/29/25 12:20 Urine Bacteria 4+ /hpf (NONE) H 07/29/25 12:20 Hyaline Casts 0-4 /lpf H 07/29/25 12:20 Salicylates < 0.3 mg/dL (3-10) L 07/29/25 12:26 Urine Opiates Screen Negative ng/mL (Negative) 07/29/25 12:20 Acetaminophen < 5.0 ug/mL (10-30) L 07/29/25 12:26 Ur Barbiturates Screen Negative ng/mL (Negative) 07/29/25 12:20 Ur Phencyclidine Scrn Negative ng/mL (Negative) 07/29/25 12:20 Ur Amphetamines Screen Negative ng/mL (Negative) 07/29/25 12:20 U Benzodiazepines Scrn Negative ng/mL (Negative) 07/29/25 12:20 Urine Cocaine Screen Negative ng/mL (Negative) 07/29/25 12:20 U Marijuana (THC) Screen Negative ng/mL (Negative) 07/29/25 12:20 Ethyl Alcohol < 10 mg/dL (0-10) 07/29/25 12:26 No radiology studies performed this visit Discharge Plan Discharge Patient Disposition: Admitted As Inpatient Clinical Impression: Acute psychosis, Suicidal ideation Condition: Stable Coding Level of Care Code ED Straight Tooth Gear Generator Operator for Kenneth Frazier
[2025-07-29 12:19] VITALS: BP 167/72; PULSE 100; RESP 18; TEMP 36.7; O2SAT 99
[2025-07-29 12:34] LABS: HCG Qualitative Urine. Negative (Negative)
--- NOTE | 2025-07-29 12:35 | ECG_ITS ---
[facility] Test Date: 2025-07-29 Pat Name: Kenyetta Sommer Department: Room: Gender: Female Occ Therapist: : 1985 Requested By: Mallory Nguyen Order Number: [id number] Mora MD: Rigo Garcia M.D. Measurements Intervals [place] Rate: 79 P: 1 MA: 138 QRS: -1 QRSD: 88 T: 10 QT: 349 QTc: 401 Interpretive Statements SINUS RHYTHM No previous ECG available for comparison Electronically Signed On 07-29-2025 20:20:02 CDT by Rigo Garcia M.D. [id number]
--- NOTE | 2025-07-29 12:36 | PC.NURSE ---
pt was read her 96 hour hold rights. security present
[2025-07-29 12:40] LABS: Glucose Urine UA Negative (Normal); Nitrate Urine Negative (Negative); Specific Gravity, Urine 1.024 (1.005-1.030)
[2025-07-29 12:43] LABS: Add Urine Microscopic? YES
[2025-07-29 12:44] LABS: Hematocrit 33.7 % (36-47); Hemoglobin 11.20 g/dL (11.27-16.99); Mean Corpuscular HGB Conc 33.2 g/dL (30-55); Mean Corpuscular Hemoglobin 29.9 pg (27-33); Mean Corpuscular Volume 90.1 fl (85-98); Nucleated Red Blood Cells % 0 %; Platelet Count 280 10^3/cmm (157-399); Red Blood Count 3.74 10^6/uL (3.85-5.65); White Blood Count 8.74 10^3/uL (3.29-11.43)
[2025-07-29 12:47] LABS: PCP Screen Urine Negative (Negative)
[2025-07-29 13:16] LABS: Alanine Aminotransferase 6 U/L (0-33); Albumin Level 3.7 g/dL (3.5-5.2); Alkaline Phosphatase 101 U/L (35-105); Anion Gap 14.8 (5-19); Aspartate Amino Transferase 8 U/L (0-32); Blood Urea Nitrogen 15 mg/dL (6-20); Calcium 8.7 mg/dL (8.5-10.5); Carbon Dioxide 24 mmol/L (22-29); Chloride 102 mmol/L (98-107); Globulin 3.2 g/dL (1.3-4.6); Glucose 104 mg/dL (65-115); Osmolality Calculated 285 mOsm/kg (285-295); Potassium 3.8 mmol/L (3.5-5.1); Sodium 137 mmol/L (136-145); Thyroid Stimulating Hormone 1.50 uIU/mL (0.27-4.20); Total Protein 6.9 g/dL (6.6-8.7)
[2025-07-29 13:17] LABS: Acetaminophen < 5.0 ug/mL (10-30); Alcohol Level < 10 mg/dL (0-10); Salicylate < 0.3 mg/dL (3-10)
[2025-07-29 15:09] VITALS: BP 124/84; PULSE 82; RESP 17; TEMP 36.8; O2SAT 98
--- NOTE | 2025-07-29 17:46 | PC.ADMIT ---
Admission Note: The patient,Kenyetta Sommer,40 y/o, was given written information regarding hospital policies, unit procedures and contact persons. Patient's smoking status: . Vital Signs - 8 hr 07/29/25 12:19 07/29/25 14:45 07/29/25 15:09 Temperature 98.1 F 98.2 F Pulse Rate 100 82 Respiratory Rate 18 17 Blood Pressure 167/72 124/84 Pulse Oximetry 99 98 Oxygen Delivery Method Room Air Room Air Patient is a poor historian, she endorses SA at unknown time. She states that she has just been sad. Patient is pleasant and childlike and talks like a baby. She is animated and her affect is bizarre. She has been singing to staff on the unit. She denies anxiety, SI/HI/AVH. She does endorse intrusive thoughts and hearing Gods voice telling her that this is her year and that she won't have any problems. She voices having a large family that is supportive of her. She states she thinks that she was hospitalized before but is unsure when. She endorses having a head injury since she was a child. Patient was oriented to unit norms. All questions answered.
[2025-07-29 20:00] VITALS: BP 129/86; PULSE 84; RESP 17; TEMP 36.9; O2SAT 97
[2025-07-30 06:00] VITALS: BP 121/77; PULSE 80; RESP 16; TEMP 37.2; O2SAT 90
[2025-07-30] MEDS: venlafaxine ER (24HR) 150 mg Capsule PO (09:56)
--- NOTE | 2025-07-30 11:49 | P.NPUHP_ITS ---
Providers/Chief Complaint 2 Admitting Physician: Harry Lopez MD Chief Complaint: 96 HPI NPU History of Present Illness Kenyetta Sommer is a 40 year old female who presented to the emergency department with the following report: Chief Complaint: Psychiatric Symptoms Stated Complaint: 96 History of Present Illness: 40-year-old female with a history of psychiatric issues and who is in a recovery center who presents emergency room from psychiatric clinic on a 96-hour hold. Apparently at the recovery unit she is at she would remain naked and try to hug the other people that were there. She reported to therapist that she was currently suicidal. When I talk to her she has flight of ideas and does report that she feels suicidal. She was admitted to the neuropsychiatric unit for definitive treatment of those issues. 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 This is likely further indication of her presentation diagnostically as she presented with what appeared to be flight of ideas and talking very happy and positively about being here and having no to point to her words or conversation. She did confirm having had some feelings of suicidal thinking but could not explain why and did not specifically endorse depression. There were no rational answers to any of the questions that were given for the most part. She did report feeling safe and feeling positive that we were taking care of her. She did not answer any questions with purposeful information regarding her medications or her history of treatment. We discussed the risks, benefits and alternatives of us trying to get get collateral information about medications or previous treatment to use that to guide our approach to her likely sari but she did not appear to understand but did agree to proceed as is documented in his note. Per her 07/29/2025 [facility] outpatient mental health assessment: Current Presentation: Client arrived accompanied by individuals that were also from [employer] [facility] [employer]. Client was dishevelled, poor hygiene, poor communication skills, limited eye contact. Presenting Problem(s): Currently suicidal, Acute psychiatric crisis and Inability to meet basic needs Intervention: She was experiencing psychosis, delusions, and reported taking 140 mg Hydroxide times 4. She reported that she was only supposed to take one but they wouldn't work, so she took more. She scored high on the SI scale. Client reports history of SI and attempts. Could not contract for safety. Client was actively communicating with external delusions. The staff at the recovery house stated that she was naked and wanting to hug all the persons at the recovery house. When the QAP inquired about it, she stated Why do I need to be clothed, because we are all just girls at that facility. Client stated I just want to get naked, hug people, and help them find [place] . Client was also delusional about her being and had difficulty with providing accurate history. QAP was concerned about clients well being and requested for a 96 hour hold, or to be transferred to the ER. International Logistics Manager signed affidavit and [facility], and took her to the ER for further observation. Client Response to Intervention: Im not in trouble am I Final Disposition: Client was pleasant when departed. Safety Plan Completed/Updated: No (Client did not contract for safety or assist in developing a safety plan. Meds NPU Home Medications ?Medication ?Instructions ?Recorded ?Confirmed ?Last Taken ?Type polyethylene glycol 3350 17 4 g PO DAILY #119 grams 07/29/25 Unknown Rx gram/dose oral powder (Miralax) cephalexin 500 mg tablet 500 mg PO TID 7 days #21 tab s 07/29/25 Unknown Rx hydroxyzine HCl 50 mg tablet 50 mg PO BID PRN Anxiety 07/30/25 07/30/25 Unknown History prazosin 2 mg capsule 4 mg PO BEDTIME 07/30/2505/18 Unknown History quetiapine 25 mg tablet 25 mg PO TID PRN Agitation 0 07/30/25 07/30/25 Unknown History venlafaxine 150 mg 150 mg PO DAILY 07/30/2505/18 Unknown History capsule,extended release 24 hr Allergies Allergy/AdvReac Type Severity Reaction Status Date / Time haloperidol (From Haldol) Allergy Unknown Verified 07/23/25 21:50 any psych med Allergy Unknown Uncoded 07/23/25 21:50 Mental Status Exam 2 MSE Comments: This is an overweight white female in hospital scrubs with poor grooming but adequate eye contact looking younger than her stated age with poor dentition. No abnormal movements except for psychomotor agitation. Mostly cooperative with exam in mild to moderate distress. Speech was increased rate and normal volume with a euphoric vibe to it. Mood not described but affect euphoric. Thought process linear at times thought content: Patient did not answer questions about lethality but did not have aggression towards her self or others, there were no delusions reported at likely grandiose delusions noted, she did not appear to be attending to internal stimuli. Attention and concentration were limited and memory appeared unreliable but none were formally tested. She is alert and oriented to person and place. Insight, judgment and impulse control are impaired. Vitals/I&O/Wt Last Vital Signs Temp 98.9 F 07/30/25 06:00 Pulse 80 07/30/25 06:00 Resp 16 07/30/25 06:00 BP 121/77 07/30/25 06:00 Pulse Ox 90 07/30/25 06:00 O2 Del Method Room Air 07/30/25 06:00 Data NPU 07/29/25 12:26 07/29/25 12:26 A&P Assessment and plan 1. Acute psychosis: 2. Suicidal ideation: 3. Sari: Plan: This is a 40-year-old white female with no significant previous contact with psychiatric services here per her records but presents from a recovery facility with odd behaviors that seem likely manic in nature with her increased speech and erratic behaviors presents on a 96-hour hold. 1. Continue current medications but add a mood stabilizer. 2. Continue every 15 minute checks for safety. 3. Encourage individual, group and milieu therapies. 4. Encourage sober living treatment after discharge at the highest level of care to which she is willing to commit. 5. Obtain collateral information. 6. Evaluate against the backdrop of the 96-hour hold. PDMP PDMP Reviewed: Not Reviewed Involuntary Hold Information 2 Hold Status: Date/Time Hold Expires: 08/04/25 @ 12:10 Attestations NPU 2 Medical Necessity Statement*: Inpatient hospitalization is medically necessary and deemed to be the clinically appropriate intervention at this time. We will monitor and initiate medications while making changes as indicated. Her likely length of stay is 5-7 days. Coding Level of Care Code Acute Code for [facility] Fwd Diagnoses Acute psychosis F23 Suicidal ideation R45.851 Sari F30.9
[2025-07-30 14:00] VITALS: BP 115/81; PULSE 77; RESP 16; TEMP 36.9; O2SAT 100
[2025-07-30 19:37] VITALS: BP 119/74; PULSE 71; RESP 16; TEMP 37.3; O2SAT 100
[2025-07-31 06:00] VITALS: BP 108/73; PULSE 74; RESP 18; TEMP 37.1; O2SAT 97
[2025-07-31] MEDS: venlafaxine ER (24HR) 150 mg Capsule PO (11:43)
[2025-07-31 14:00] VITALS: BP 100/73; PULSE 82; RESP 16; TEMP 36.6; O2SAT 98
--- NOTE | 2025-07-31 16:22 | P.NPUPN_ITS ---
Subjective NPU 2 Subjective: Patient presented today reporting that she is doing fine. However she continued to be odd and ethereal in her vocal delivery and speech per staff reports and direct observation. She cannot confirm or deny any of the comments about her being allergic to medications. She cannot confirm or deny exposure to lithium, Abilify or Invega. We discussed trying to get some information on her tomorrow and if not trying medication and being prepared to respond with something for EPS or worse. Mental Status Exam 2 MSE Comments: This is an overweight white female in hospital scrubs with poor grooming but adequate eye contact looking younger than her stated age with poor dentition. No abnormal movements except for psychomotor agitation. Mostly cooperative with exam in mild to moderate distress. Speech was increased rate and normal volume with a euphoric vibe to it. Mood not described but affect euphoric. Thought process linear at times thought content: Patient did not answer questions about lethality but did not have aggression towards her self or others, there were no delusions reported at likely grandiose delusions noted, she did not appear to be attending to internal stimuli. Attention and concentration were limited and memory appeared unreliable but none were formally tested. She is alert and oriented to person and place. Insight, judgment and impulse control are impaired. Vitals/I&O/Wt Last Vital Signs Temp 98 F 07/31/25 14:00 Pulse 82 07/31/25 14:00 Resp 16 07/31/25 14:00 BP 100/73 07/31/25 14:00 Pulse Ox 98 07/31/25 14:00 O2 Del Method Room Air 07/31/25 14:00 Weight last 48 hrs Weight 80.467 kg Data NPU 07/29/25 12:26 07/29/25 12:26 A&P Assessment and plan 1. Acute psychosis: 2. Suicidal ideation: 3. Matilda: Plan: This is a 40-year-old white female with no significant previous contact with psychiatric services here per her records but presents from a recovery facility with odd behaviors that seem likely manic in nature with her increased speech and erratic behaviors presents on a 96-hour hold. 1. Continue current medications but add a mood stabilizer. She has listed all psych meds as her medications with which she has allergies but she could not report taking the medications before like lithium or Invega/Abilify and she was agreeable to trying something. 2. Continue every 15 minute checks for safety. 3. Encourage individual, group and milieu therapies. 4. Encourage sober living treatment after discharge at the highest level of care to which she is willing to commit. 5. Obtain collateral information. 6. Evaluate against the backdrop of the 96-hour hold. PDMP PDMP Reviewed: Not Reviewed Involuntary Hold Information 2 Hold Status: Legal Status: 96 Hour Hold Date/Time Hold Expires: 08/04/25 @ 12:10 Attestations NPU 2 Medical Necessity Statement*: Inpatient hospitalization is medically necessary and deemed to be the clinically appropriate intervention at this time. We will monitor and initiate medications while making changes as indicated. Her likely length of stay is 5-7 days. Coding Level of Care Code Acute Code for [facility] Fwd Diagnoses Acute psychosis F23 Suicidal ideation R45.851 Matilda F30.9
[2025-07-31 22:00] VITALS: BP 112/69; PULSE 71; RESP 18; TEMP 37.2; O2SAT 97
[2025-08-01 06:00] VITALS: BP 102/68; PULSE 64; RESP 16; O2SAT 99
[2025-08-01] MEDS: venlafaxine ER (24HR) 150 mg Capsule PO (08:19)
[2025-08-01] MEDS: paliperidone ER 6 mg Tablet PO (11:50)
--- NOTE | 2025-08-01 13:43 | W.PM.NPUPNS ---
Subjective NPU Subjective: Patient presented today reporting that she is doing fine. She continues to be isolative and staying in her room per staff reports and direct observation. We discussed that we needed to figure out what she has had before and if there are any clear allergies however we discussed the risks, benefits and alternatives of starting Invega and she understood and agreed to proceed as documented in this note. Mental Status Exam MSE Comments: This is an overweight white female in hospital scrubs with poor grooming but adequate eye contact looking younger than her stated age with poor dentition. No abnormal movements except for psychomotor agitation. Mostly cooperative with exam in mild to moderate distress. Speech was increased rate and normal volume with a euphoric vibe to it. Mood not described but affect euphoric. Thought process linear at times thought content: Patient did not answer questions about lethality but did not have aggression towards her self or others, there were no delusions reported at likely grandiose delusions noted, she did not appear to be attending to internal stimuli. Attention and concentration were limited and memory appeared unreliable but none were formally tested. She is alert and oriented to person and place. Insight, judgment and impulse control are impaired. Vitals/I&O/Wt Last Vital Signs Temp 99.0 F 07/31/25 22:00 Pulse 64 08/01/25 06:00 Resp 16 08/01/25 06:00 BP 102/68 08/01/25 06:00 Pulse Ox 99 08/01/25 06:00 O2 Del Method Room Air 08/01/25 06:00 Weight last 48 hrs Weight 80.467 kg Data NPU 07/29/25 12:26 07/29/25 12:26 A&P Assessment and plan 1. Acute psychosis: 2. Suicidal ideation: 3. Matlida: Plan: This is a 40-year-old white female with no significant previous contact with psychiatric services here per her records but presents from a recovery facility with odd behaviors that seem likely manic in nature with her increased speech and erratic behaviors presents on a 96-hour hold. 1. Continue current medications but add a mood stabilizer. She has listed all psych meds as her medications with which she has allergies but she could not report taking the medications before like lithium or Invega/Abilify and she was agreeable to trying something. Started Invega 6 mg p.o. daily 2. Continue every 15 minute checks for safety. 3. Encourage individual, group and milieu therapies. 4. Encourage sober living treatment after discharge at the highest level of care to which she is willing to commit. 5. Obtain collateral information. We will see if [facility] has any records on her about her medications 6. Evaluate against the backdrop of the 96-hour hold. PDMP PDMP Reviewed: Not Reviewed Involuntary Hold Information Hold Status: Legal Status: 96 Hour Hold Date/Time Hold Expires: 08/04/25 @ 12:10 Attestations NPU Medical Necessity Statement*: Inpatient hospitalization is medically necessary and deemed to be the clinically appropriate intervention at this time. We will monitor and initiate medications while making changes as indicated. Her likely length of stay is 5-7 days. Coding Level of Care Code Acute Code for [facility] Fwd Diagnoses Acute psychosis F23 Suicidal ideation R45.851 Matilda F30.9
[2025-08-01 14:00] VITALS: BP 107/66; PULSE 74; RESP 16; TEMP 37.2; O2SAT 98
[2025-08-01 19:54] VITALS: BP 117/71; PULSE 76; RESP 16; TEMP 37.1; O2SAT 96
[2025-08-02 06:00] VITALS: BP 106/66; PULSE 69; RESP 14; TEMP 37.3; O2SAT 99
[2025-08-02] MEDS: paliperidone ER 6 mg Tablet PO (09:44)
[2025-08-02] MEDS: venlafaxine ER (24HR) 150 mg Capsule PO (09:44)
--- NOTE | 2025-08-02 11:26 | P.NPUPN_ITS ---
Subjective NPU 2 Subjective: Patient presented today reporting that she is doing fine. She reports that she feels less elevated and denied any major concerns with the Invega except for maybe being tired. We discussed the risks, benefits and alternatives of switching the Invega to bedtime and she understood and agreed to proceed as documented in this note. She denied any other side effects to the medication and reported feeling better overall. Mental Status Exam 2 MSE Comments: This is an overweight white female in hospital scrubs with poor grooming but adequate eye contact looking younger than her stated age with poor dentition. No abnormal movements except for psychomotor agitation. Mostly cooperative with exam in mild to moderate distress. Speech was increased rate and normal volume with a euphoric vibe to it. Mood described as a little better but affect congruent less euphoric. Thought process linear at times thought content: Patient did not answer questions about lethality but did not have aggression towards her self or others, there were no delusions reported at likely grandiose delusions noted, she did not appear to be attending to internal stimuli. Attention and concentration were limited and memory appeared unreliable but none were formally tested. She is alert and oriented to person and place. Insight, judgment and impulse control are impaired. Vitals/I&O/Wt Last Vital Signs Temp 99.1 F 08/02/25 06:00 Pulse 69 08/02/25 06:00 Resp 14 08/02/25 06:00 BP 106/66 08/02/25 06:00 Pulse Ox 99 08/02/25 06:00 O2 Del Method Room Air 08/02/25 06:00 Data NPU 07/29/25 12:26 07/29/25 12:26 A&P Assessment and plan 1. Acute psychosis: 2. Suicidal ideation: 3. Matilda: Plan: This is a 40-year-old white female with no significant previous contact with psychiatric services here per her records but presents from a recovery facility with odd behaviors that seem likely manic in nature with her increased speech and erratic behaviors presents on a 96-hour hold. 1. Continue current medications but add a mood stabilizer. She has listed all psych meds as her medications with which she has allergies but she could not report taking the medications before like lithium or Invega/Abilify and she was agreeable to trying something. Started Invega 6 mg p.o. daily 2. Continue every 15 minute checks for safety. 3. Encourage individual, group and milieu therapies. 4. Encourage sober living treatment after discharge at the highest level of care to which she is willing to commit. 5. Obtain collateral information. We will see if [facility] has any records on her about her medications. Received paperwork from [facility] identifying a history of multiple hospitalizations in her life with this being the third for her since March. 6. Evaluate against the backdrop of the 96-hour hold. PDMP PDMP Reviewed: Not Reviewed Involuntary Hold Information 2 Hold Status: Legal Status: 96 Hour Hold Date/Time Hold Expires: 08/04/25 @ 12:10 Attestations NPU 2 Medical Necessity Statement*: Inpatient hospitalization is medically necessary and deemed to be the clinically appropriate intervention at this time. We will monitor and initiate medications while making changes as indicated. Her likely length of stay is 5-7 days. Coding Level of Care Code Acute Code for [facility] Fwd Diagnoses Acute psychosis F23 Suicidal ideation R45.851 Matilda F30.9
--- NOTE | 2025-08-02 11:30 | PC.NURSE ---
Signee called [facility] and requested medical records from pt.'s last behavioral health stay. Medical records is faxing the records.
[2025-08-02 12:55] VITALS: BP 103/67; PULSE 82; RESP 18; TEMP 36.7; O2SAT 98
[2025-08-02 20:05] VITALS: BP 119/79; PULSE 98; RESP 14; O2SAT 96
[2025-08-03 06:00] VITALS: BP 84/53; PULSE 71; RESP 16; TEMP 36.5; O2SAT 97
[2025-08-03] MEDS: venlafaxine ER (24HR) 150 mg Capsule PO (08:15)
--- NOTE | 2025-08-03 08:20 | P.NPUPN_ITS ---
Subjective NPU 2 Subjective: Patient presented today reporting that things are going well. She endorsed that the Invega is helping and she is feeling much more functional. She continued to be more able to converse per staff reports and direct observation. We discussed the risks, benefits and alternatives of initiating the Invega Sustenna injection prior to discharge and she understood and agreed to proceed as is documented in this note. Mental Status Exam 2 MSE Comments: This is an overweight white female in hospital scrubs with poor grooming but adequate eye contact looking younger than her stated age with poor dentition. No abnormal movements except for mild psychomotor retardation. Cooperative with exam in mild to moderate distress. Speech was more normal rate and volume. Mood described as a little better but affect congruent less euphoric. Thought process linear at times thought content: Patient did not answer questions about lethality but did not have aggression towards her self or others, there were no delusions reported at likely grandiose delusions noted, she did not appear to be attending to internal stimuli. Attention and concentration were limited and memory appeared unreliable but none were formally tested. She is alert and oriented to person and place. Insight, judgment and impulse control are impaired. Vitals/I&O/Wt Last Vital Signs Temp 97.7 F 08/03/25 06:00 Pulse 71 08/03/25 06:00 Resp 16 08/03/25 06:00 BP 84/53 08/03/25 06:00 Pulse Ox 97 08/03/25 06:00 O2 Del Method Room Air 08/03/25 06:00 Data NPU 07/29/25 12:26 07/29/25 12:26 A&P Assessment and plan 1. Acute psychosis: 2. Suicidal ideation: 3. Matilda: Plan: This is a 40-year-old white female with no significant previous contact with psychiatric services here per her records but presents from a recovery facility with odd behaviors that seem likely manic in nature with her increased speech and erratic behaviors presents on a 96-hour hold. 1. Continue current medications but add a mood stabilizer. She has listed all psych meds as her medications with which she has allergies but she could not report taking the medications before like lithium or Invega/Abilify and she was agreeable to trying something. Started Invega 6 mg p.o. daily. Discussed initiating the Invega injection once we have her certain we have clear improvement. 2. Continue every 15 minute checks for safety. 3. Encourage individual, group and milieu therapies. 4. Encourage sober living treatment after discharge at the highest level of care to which she is willing to commit. 5. Obtain collateral information. We will see if [facility] has any records on her about her medications. Received paperwork from [facility] identifying a history of multiple hospitalizations in her life with this being the third for her since March. 6. Evaluate against the backdrop of the 96-hour hold. PDMP PDMP Reviewed: Not Reviewed Involuntary Hold Information 2 Hold Status: Legal Status: 96 Hour Hold Date/Time Hold Expires: 08/04/25 @ 12:10 Attestations NPU 2 Medical Necessity Statement*: Inpatient hospitalization is medically necessary and deemed to be the clinically appropriate intervention at this time. We will monitor and initiate medications while making changes as indicated. Her likely length of stay is 5-7 days. Coding Level of Care Code Acute Code for Chg Fwd Diagnoses Acute psychosis F23 Suicidal ideation R45.851 Matilda F30.9
--- NOTE | 2025-08-03 08:50 | NUR.SHIFT ---
Pt states that she slept okay last night. She rates her anxiety a 3/10 and depression a 2/10. No reports of SI/HI or hallucinations. She states that she has body aches all over and rates that a 2/10. I offered her tylenol and ibuprofen and she stated that she would ask if she would like some later. She is up eating breakfast in the dayroom. Calm and cooperative on assessment.
[2025-08-03 13:20] VITALS: BP 105/72; PULSE 90; RESP 16; TEMP 36.7; O2SAT 96
[2025-08-03] MEDS: paliperidone ER 6 mg Tablet PO (20:37)
[2025-08-03 21:09] VITALS: BP 98/67; PULSE 87; RESP 16; TEMP 36.7; O2SAT 97
[2025-08-04 06:00] VITALS: BP 98/60; PULSE 83; RESP 16; TEMP 36.6; O2SAT 97
[2025-08-04] MEDS: venlafaxine ER (24HR) 150 mg Capsule PO (08:56)
[2025-08-04] MEDS: paliperidone ER 6 mg Tablet PO (08:56)
[2025-08-04 14:00] VITALS: BP 97/68; PULSE 87; RESP 18; TEMP 36.8; O2SAT 98
--- NOTE | 2025-08-04 15:38 | P.NPUPN_ITS ---
Subjective NPU 2 Subjective: Patient presented today reporting that things are going better still. We had a lengthy discussion about the medication and its impact and discussed the risks, benefits and alternatives of considering a long-acting injectable and she understood and agreed to proceed as documented in this note. She denies any side effects of the medication and we discussed the 21-day hold paperwork that was filed and the purpose of that filing is how the 21-day hold process works. Mental Status Exam 2 MSE Comments: This is an overweight white female in hospital scrubs with poor grooming but adequate eye contact looking younger than her stated age with poor dentition. No abnormal movements except for mild psychomotor retardation. Cooperative with exam in mild distress. Speech was more normal rate and volume. Mood described as better, affect congruent less euphoric. Thought process linear at times thought content: Patient did not answer questions about lethality but did not have aggression towards her self or others, there were no delusions reported at likely grandiose delusions noted, she did not appear to be attending to internal stimuli. Attention and concentration were limited and memory appeared unreliable but none were formally tested. She is alert and oriented to person and place. Insight, judgment and impulse control are impaired. Vitals/I&O/Wt Last Vital Signs Temp 98.2 F 08/04/25 14:00 Pulse 87 08/04/25 14:00 Resp 18 08/04/25 14:00 BP 97/68 08/04/25 14:00 Pulse Ox 98 08/04/25 14:00 O2 Del Method Room Air 08/04/25 06:00 Data NPU 07/29/25 12:26 07/29/25 12:26 A&P Assessment and plan 1. Acute psychosis: 2. Suicidal ideation: 3. Matilda: Plan: This is a 40-year-old white female with no significant previous contact with psychiatric services here per her records but presents from a recovery facility with odd behaviors that seem likely manic in nature with her increased speech and erratic behaviors presents on a 96-hour hold. 1. Continue current medications but add a mood stabilizer. She has listed all psych meds as her medications with which she has allergies but she could not report taking the medications before like lithium or Invega/Abilify and she was agreeable to trying something. Started Invega 6 mg p.o. daily. Discussed initiating the Invega injection once we have her certain we have clear improvement. Tentative plan for discharge tomorrow 2. Continue every 15 minute checks for safety. 3. Encourage individual, group and milieu therapies. 4. Encourage sober living treatment after discharge at the highest level of care to which she is willing to commit. 5. Obtain collateral information. We will see if [facility] has any records on her about her medications. Received paperwork from [facility] identifying a history of multiple hospitalizations in her life with this being the third for her since March. 6. Evaluate against the backdrop of the 96-hour hold. PDMP PDMP Reviewed: Not Reviewed Involuntary Hold Information 2 Hold Status: Legal Status: 96 Hour Hold Date/Time Hold Expires: 08/04/25 @ 12:10 Attestations NPU 2 Medical Necessity Statement*: Inpatient hospitalization is medically necessary and deemed to be the clinically appropriate intervention at this time. We will monitor and initiate medications while making changes as indicated. Her likely length of stay is 5-7 days. Coding Level of Care Code Acute Code for [facility] Fwd Diagnoses Acute psychosis F23 Suicidal ideation R45.851 Matilda F30.9
[2025-08-04 20:10] VITALS: BP 104/72; PULSE 90; RESP 18; TEMP 36.6; O2SAT 97
[2025-08-05 06:00] VITALS: BP 95/65; PULSE 80; RESP 17; TEMP 36.5; O2SAT 96
[2025-08-05] MEDS: venlafaxine ER (24HR) 150 mg Capsule PO (08:43)
[2025-08-05] MEDS: paliperidone ER 6 mg Tablet PO (08:44)
[2025-08-05] MEDS: paliperidone palmitate 234 mg Syringe IM (12:46)
--- NOTE | 2025-08-05 12:49 | PC.NURSE ---
Pt was administered Invega 234mg IM. Pt tolerated well.
--- NOTE | 2025-08-05 13:09 | P.NPUPN_ITS ---
Subjective NPU 2 Subjective: Patient presented today reporting she is doing okay. She has a 21-day hold hearing today but she denies any plan to attend. She reports that she is feeling better each day and we discussed the risks, benefits and alternatives of getting the Invega Sustenna injection and she understood and agreed to proceed as is documented in this note. She is optimistic about the likelihood of returning to her sober living program. She denied any side effects to her medication. Mental Status Exam 2 MSE Comments: This is an overweight white female in hospital scrubs with poor grooming but adequate eye contact looking younger than her stated age with poor dentition. No abnormal movements except for mild psychomotor retardation. Cooperative with exam in mild distress. Speech was more normal rate and volume. Mood described as better, affect congruent and slightly subdued. Thought process linear at times thought content: Patient did not answer questions about lethality but did not have aggression towards her self or others, there were no delusions reported at likely grandiose delusions noted, she did not appear to be attending to internal stimuli. Attention and concentration were limited and memory appeared unreliable but none were formally tested. She is alert and oriented to person and place. Insight, judgment and impulse control are impaired. Vitals/I&O/Wt Last Vital Signs Temp 97.7 F 08/05/25 06:00 Pulse 80 08/05/25 06:00 Resp 17 08/05/25 06:00 BP 95/65 08/05/25 06:00 Pulse Ox 96 08/05/25 06:00 O2 Del Method Room Air 08/05/25 06:00 Data NPU 07/29/25 12:26 07/29/25 12:26 A&P Assessment and plan 1. Acute psychosis: 2. Suicidal ideation: 3. Matilda: Plan: This is a 40-year-old white female with no significant previous contact with psychiatric services here per her records but presents from a recovery facility with odd behaviors that seem likely manic in nature with her increased speech and erratic behaviors presents on a 96-hour hold. 1. Continue current medications but add a mood stabilizer. She has listed all psych meds as her medications with which she has allergies but she could not report taking the medications before like lithium or Invega/Abilify and she was agreeable to trying something. Started Invega 6 mg p.o. daily. Discussed initiating the Invega injection once we have her certain we have clear improvement. Invega Sustenna 234 mg IM was given. Patient given deltoid injection since it was a loading dose. 2. Continue every 15 minute checks for safety. 3. Encourage individual, group and milieu therapies. 4. Encourage sober living treatment after discharge at the highest level of care to which she is willing to commit. 5. Obtain collateral information. We will see if [facility] has any records on her about her medications. Received paperwork from [facility] identifying a history of multiple hospitalizations in her life with this being the third for her since March. 6. Evaluate against the backdrop of the 96-hour hold. 21-day hold hearing held today. PDMP PDMP Reviewed: Not Reviewed Involuntary Hold Information 2 Hold Status: Legal Status: 21 Day Hold Date/Time Hold Expires: 08/26/25 Attestations NPU 2 Medical Necessity Statement*: Inpatient hospitalization is medically necessary and deemed to be the clinically appropriate intervention at this time. We will monitor and initiate medications while making changes as indicated. Her likely length of stay is 5-7 days. Coding Level of Care Code Acute Code for Chg Fwd Diagnoses Acute psychosis F23 Suicidal ideation R45.851 Matilda F30.9
[2025-08-05 14:00] VITALS: BP 80/58; PULSE 68; RESP 16; O2SAT 97
[2025-08-05 20:27] VITALS: BP 106/63; PULSE 74; RESP 17; TEMP 36.6; O2SAT 97
[2025-08-06 06:00] VITALS: BP 92/56; PULSE 85; RESP 18; TEMP 36.7; O2SAT 96
[2025-08-06] MEDS: paliperidone ER 6 mg Tablet PO (08:37)
[2025-08-06] MEDS: venlafaxine ER (24HR) 150 mg Capsule PO (08:37)
[2025-08-06 14:00] VITALS: BP 97/55; PULSE 76; RESP 17; TEMP 36.5; O2SAT 95
--- NOTE | 2025-08-06 20:57 | W.PM.NPUPNS ---
Subjective NPU Subjective: Patient presented today reporting that things are going okay. She endorsed getting the injection of Invega Sustenna first loading dose without incident. He continues to be somewhat isolative per staff reports and direct patient but denies that she is doing that or any negative reasons. She denies any side effects of the medication and we discussed the continued plan to hopefully get her back to the sober living facility in the next week or so Mental Status Exam MSE Comments: This is an overweight white female in hospital scrubs with poor grooming but adequate eye contact looking younger than her stated age with poor dentition. No abnormal movements except for mild psychomotor retardation. Cooperative with exam in mild distress. Speech was more normal rate and volume. Mood described as better, affect congruent and slightly subdued. Thought process linear at times thought content: Patient did not answer questions about lethality but did not have aggression towards her self or others, there were no delusions reported at likely grandiose delusions noted, she did not appear to be attending to internal stimuli. Attention and concentration were limited and memory appeared unreliable but none were formally tested. She is alert and oriented to person and place. Insight, judgment and impulse control are impaired. Vitals/I&O/Wt Last Vital Signs Temp 97.7 F 08/06/25 14:00 Pulse 76 08/06/25 14:00 Resp 17 08/06/25 14:00 BP 97/55 08/06/25 14:00 Pulse Ox 95 08/06/25 14:00 O2 Del Method Room Air 08/06/25 06:00 Data NPU 07/29/25 12:26 07/29/25 12:26 A&P Assessment and plan 1. Acute psychosis: 2. Suicidal ideation: 3. Matilda: Plan: This is a 40-year-old white female with no significant previous contact with psychiatric services here per her records but presents from a recovery facility with odd behaviors that seem likely manic in nature with her increased speech and erratic behaviors presents on a 96-hour hold. 1. Continue current medications but add a mood stabilizer. She has listed all psych meds as her medications with which she has allergies but she could not report taking the medications before like lithium or Invega/Abilify and she was agreeable to trying something. Started Invega 6 mg p.o. daily. Discussed initiating the Invega injection once we have her certain we have clear improvement. Invega Sustenna 234 mg IM was given. Patient given deltoid injection since it was a loading dose. 2. Continue every 15 minute checks for safety. 3. Encourage individual, group and milieu therapies. 4. Encourage sober living treatment after discharge at the highest level of care to which she is willing to commit. 5. Obtain collateral information. We will see if [facility] has any records on her about her medications. Received paperwork from [facility] identifying a history of multiple hospitalizations in her life with this being the third for her since March. 6. Evaluate against the backdrop of the 96-hour hold. 21-day hold hearing held today. PDMP PDMP Reviewed: Not Reviewed Involuntary Hold Information Hold Status: Legal Status: 21 Day Hold Date/Time Hold Expires: 08/26/25 Attestations NPU Medical Necessity Statement*: Inpatient hospitalization is medically necessary and deemed to be the clinically appropriate intervention at this time. We will monitor and initiate medications while making changes as indicated. Her likely length of stay is 5-7 days. Coding Level of Care Code Acute Code for [facility] Fwd Diagnoses Acute psychosis F23 Suicidal ideation R45.851 Matilda F30.9
[2025-08-06 22:00] VITALS: BP 104/66; PULSE 73; RESP 18; TEMP 37; O2SAT 95
[2025-08-07 06:00] VITALS: BP 91/55; PULSE 82; RESP 17; TEMP 36.7; O2SAT 97; BMI 28.0
[2025-08-07] MEDS: paliperidone ER 6 mg Tablet PO (09:48)
[2025-08-07] MEDS: venlafaxine ER (24HR) 150 mg Capsule PO (09:48)
[2025-08-07 13:19] VITALS: BP 78/50; PULSE 77; RESP 14; TEMP 36.7; O2SAT 97
--- NOTE | 2025-08-07 18:57 | P.NPUPN_ITS ---
Subjective NPU 2 Subjective: Patient presented today reporting that she is going all right. She is doing much better per her report and staff reports that when she first came in but she is still having some difficulties with perceptual disturbances. We discussed increasing her Invega oral dose to 9 mg p.o. daily after discussion of the risks, benefits and alternatives she understood and agreed to proceed as is documented in this note. Additionally we discussed the possibility of something like Depakote or something as had alternate mood stabilizer. Otherwise she denied any side effects to medications. Mental Status Exam 2 MSE Comments: This is an overweight white female in hospital scrubs with poor grooming but adequate eye contact looking younger than her stated age with poor dentition. No abnormal movements except for mild psychomotor retardation. Cooperative with exam in mild distress. Speech was more normal rate and volume. Mood described as better, affect congruent and slightly subdued. Thought process linear at times thought content: Patient denied suicidal or homicidal ideation, there were no delusions reported at likely grandiose delusions noted, she did not appear to be attending to internal stimuli. Attention and concentration were limited and memory appeared unreliable but none were formally tested. She is alert and oriented to person and place. Insight, judgment and impulse control are impaired. Vitals/I&O/Wt Last Vital Signs Temp 98.5 F 08/07/25 20:29 Pulse 80 08/07/25 20:29 Resp 19 H 08/07/25 20:29 BP 113/70 08/07/25 20:29 Pulse Ox 98 08/07/25 20:29 O2 Del Method Room Air 08/07/25 20:29 Weight last 48 hrs Weight 83.688 kg Data NPU 07/29/25 12:26 07/29/25 12:26 A&P Assessment and plan 1. Acute psychosis: 2. Suicidal ideation: 3. Matilda: Plan: This is a 40-year-old white female with no significant previous contact with psychiatric services here per her records but presents from a recovery facility with odd behaviors that seem likely manic in nature with her increased speech and erratic behaviors presents on a 96-hour hold. 1. Continue current medications but add a mood stabilizer. She has listed all psych meds as her medications with which she has allergies but she could not report taking the medications before like lithium or Invega/Abilify and she was agreeable to trying something. Started Invega 6 mg p.o. daily. Discussed initiating the Invega injection once we have her certain we have clear improvement. Invega Sustenna 234 mg IM was given. Patient given deltoid injection since it was a loading dose. Increase Invega to 9 mg p.o. daily and consider need for 2. Continue every 15 minute checks for safety. 3. Encourage individual, group and milieu therapies. 4. Encourage sober living treatment after discharge at the highest level of care to which she is willing to commit. 5. Obtain collateral information. We will see if [facility] has any records on her about her medications. Received paperwork from [facility] identifying a history of multiple hospitalizations in her life with this being the third for her since March. 6. Evaluate against the backdrop of the 96-hour hold. 21-day hold hearing held today. PDMP PDMP Reviewed: Not Reviewed Involuntary Hold Information 2 Hold Status: Legal Status: 21 Day Hold Date/Time Hold Expires: 08/26/25 Attestations NPU 2 Medical Necessity Statement*: Inpatient hospitalization is medically necessary and deemed to be the clinically appropriate intervention at this time. We will monitor and initiate medications while making changes as indicated. Her likely length of stay is 5-7 days. Coding Level of Care Code Acute Code for [facility] Fwd Diagnoses Acute psychosis F23 Suicidal ideation R45.851 Matilda F30.9
[2025-08-07 20:29] VITALS: BP 113/70; PULSE 80; RESP 19; TEMP 36.9; O2SAT 98
[2025-08-08 06:00] VITALS: BP 96/57; PULSE 82; RESP 17; TEMP 36.6; O2SAT 96
[2025-08-08] MEDS: venlafaxine ER (24HR) 150 mg Capsule PO (08:14)
[2025-08-08] MEDS: paliperidone ER 9 mg Tablet PO (08:14)
--- NOTE | 2025-08-08 10:19 | NUR.SHIFT ---
Pt states that she slept off and on last night. She states that last night she was having visual hallucinations and seeing Spiders or what she thought was spiders. She states that she is really anxious today rating it an 8/10 and depression 8/10. No reports of SI/HI. No pain. Pt is calm and cooperative on assessment.
--- NOTE | 2025-08-08 13:16 | P.NPUPN_ITS ---
Subjective NPU 2 Subjective: Patient presented today reporting that she is doing okay. She continues to be isolative per staff reports and direct observation. She continues to report that the medication is helpful and she denied any issues with the increased to 9 mg of the oral Invega. She will be due for the second injection shortly and we discussed that her long-term medication at this point will likely be the 234 mg dose of the Invega injection. She denied any side effects to the medication. Mental Status Exam 2 MSE Comments: This is an overweight white female in hospital scrubs with poor grooming but adequate eye contact looking younger than her stated age with poor dentition. No abnormal movements except for mild psychomotor retardation. Cooperative with exam in mild distress. Speech was more normal rate and volume. Mood described as better, affect congruent and slightly subdued. Thought process linear at times thought content: Patient denied suicidal or homicidal ideation, there were no delusions reported at likely grandiose delusions noted, she did not appear to be attending to internal stimuli. Attention and concentration were limited and memory appeared unreliable but none were formally tested. She is alert and oriented to person and place. Insight, judgment and impulse control are impaired. Vitals/I&O/Wt Last Vital Signs Temp 97.9 F 08/08/25 06:00 Pulse 82 08/08/25 06:00 Resp 17 08/08/25 06:00 BP 96/57 08/08/25 06:00 Pulse Ox 96 08/08/25 06:00 O2 Del Method Room Air 08/08/25 06:00 Weight last 48 hrs Weight 83.688 kg Data NPU 07/29/25 12:26 07/29/25 12:26 A&P Assessment and plan 1. Acute psychosis: 2. Suicidal ideation: 3. Matilda: Plan: This is a 40-year-old white female with no significant previous contact with psychiatric services here per her records but presents from a recovery facility with odd behaviors that seem likely manic in nature with her increased speech and erratic behaviors presents on a 96-hour hold. 1. Continue current medications but add a mood stabilizer. She has listed all psych meds as her medications with which she has allergies but she could not report taking the medications before like lithium or Invega/Abilify and she was agreeable to trying something. Started Invega 6 mg p.o. daily. Discussed initiating the Invega injection once we have her certain we have clear improvement. Invega Sustenna 234 mg IM was given. Patient given deltoid injection since it was a loading dose. Increased Invega to 9 mg p.o. daily and consider need for her injection to be monthly at 234 mg. 2. Continue every 15 minute checks for safety. 3. Encourage individual, group and milieu therapies. 4. Encourage sober living treatment after discharge at the highest level of care to which she is willing to commit. 5. Obtain collateral information. We will see if [facility] has any records on her about her medications. Received paperwork from [facility] identifying a history of multiple hospitalizations in her life with this being the third for her since March. 6. Evaluate against the backdrop of the 96-hour hold. Patient on 21-day hold. PDMP PDMP Reviewed: Not Reviewed Involuntary Hold Information 2 Hold Status: Legal Status: 21 Day Hold Date/Time Hold Expires: 08/26/25 Attestations NPU 2 Medical Necessity Statement*: Inpatient hospitalization is medically necessary and deemed to be the clinically appropriate intervention at this time. We will monitor and initiate medications while making changes as indicated. Her likely length of stay is 4-6 days. Coding Level of Care Code Acute Code for [facility] Fwd Diagnoses Acute psychosis F23 Suicidal ideation R45.851 Matilda F30.9
[2025-08-08 13:51] VITALS: BP 78/49; PULSE 80; RESP 16; TEMP 36.9; O2SAT 96
[2025-08-08 20:04] VITALS: BP 94/62; PULSE 75; RESP 16; TEMP 36.9; O2SAT 96
[2025-08-09 06:00] VITALS: BP 96/58; PULSE 68; RESP 16; TEMP 36.8; O2SAT 96
[2025-08-09] MEDS: paliperidone ER 9 mg Tablet PO (09:54)
[2025-08-09] MEDS: venlafaxine ER (24HR) 150 mg Capsule PO (09:54)
[2025-08-09 13:52] VITALS: BP 106/68; PULSE 84; RESP 16; TEMP 36.9; O2SAT 98
--- NOTE | 2025-08-09 17:22 | P.NPUPN_ITS ---
Subjective NPU 2 Subjective: Patient presented today reporting that she is feeling a little better. Patient started having independent thoughts about other aspects of her treatment. She was wondering about making sure she had something for anxiety and we discussed the possible evaluation of her mouth to determine whether maybe she might need an oral antibiotic for possible dental abscess. We discussed trying to find sick for her anxiety that did not challenge her recovery. She denied any side effects of her medications. Mental Status Exam 2 MSE Comments: This is an overweight white female in hospital scrubs with poor grooming but adequate eye contact looking her stated age with poor dentition. No abnormal movements except for mild psychomotor retardation. Cooperative with exam in mild distress. Speech was more normal rate and volume. Mood described as better, affect congruent and slightly subdued. Thought process linear at times and starting to appear more organized thought content: Patient denied suicidal or homicidal ideation, there were no delusions reported at likely grandiose delusions noted, she did not appear to be attending to internal stimuli. Attention and concentration were limited and memory appeared more reliable but none were formally tested. She is alert and oriented x 3. Insight, judgment and impulse control are improving. Vitals/I&O/Wt Last Vital Signs Temp 98.5 F 08/09/25 13:52 Pulse 84 08/09/25 13:52 Resp 16 08/09/25 13:52 BP 106/68 08/09/25 13:52 Pulse Ox 98 08/09/25 13:52 O2 Del Method Room Air 08/09/25 13:52 Data NPU 07/29/25 12:26 07/29/25 12:26 A&P Assessment and plan 1. Acute psychosis: 2. Suicidal ideation: 3. Matilda: Plan: This is a 40-year-old white female with no significant previous contact with psychiatric services here per her records but presents from a recovery facility with odd behaviors that seem likely manic in nature with her increased speech and erratic behaviors presents on a 96-hour hold. 1. Continue current medications but add a mood stabilizer. She has listed all psych meds as her medications with which she has allergies but she could not report taking the medications before like lithium or Invega/Abilify and she was agreeable to trying something. Started Invega 6 mg p.o. daily. Discussed initiating the Invega injection once we have her certain we have clear improvement. Invega Sustenna 234 mg IM was given. Patient given deltoid injection since it was a loading dose. Increased Invega to 9 mg p.o. daily and consider need for her injection to be monthly at 234 mg. Her second injection of 156 mg IM to deltoid due 08/12/2025 ?4 days. Likely give second injection tomorrow. 2. Continue every 15 minute checks for safety. 3. Encourage individual, group and milieu therapies. 4. Encourage sober living treatment after discharge at the highest level of care to which she is willing to commit. 5. Obtain collateral information. We will see if [facility] has any records on her about her medications. Received paperwork from [facility] identifying a history of multiple hospitalizations in her life with this being the third for her since March. 6. Evaluate against the backdrop of the 96-hour hold. Patient on 21-day hold. PDMP PDMP Reviewed: Not Reviewed Involuntary Hold Information 2 Hold Status: Legal Status: 21 Day Hold Date/Time Hold Expires: 08/26/25 Attestations NPU 2 Medical Necessity Statement*: Inpatient hospitalization is medically necessary and deemed to be the clinically appropriate intervention at this time. We will monitor and initiate medications while making changes as indicated. Her likely length of stay is 3-6 days. Coding Level of Care Code Acute Code for [facility] [place] Fwd Diagnoses Acute psychosis F23 Suicidal ideation R45.851 Matilda F30.9
[2025-08-09 19:52] VITALS: BP 103/69; PULSE 89; RESP 20; TEMP 36.4; O2SAT 96
--- NOTE | 2025-08-09 21:24 | PC.NURSE ---
TRAZODONE THE MEDICATION TRAZODONE CAUSES THIS PATIENT TO HAVE VERY VIVID NIGHTMARES. SAID MEDICATION HAS BEEN DISCONTINUED AND ADDED TO ALLERGY LIST FOR ADVERSE REACTION OF SEVER NIGHTMARES.
[2025-08-10 06:00] VITALS: BP 93/57; PULSE 68; RESP 16; TEMP 37.2; O2SAT 96
[2025-08-10] MEDS: paliperidone ER 9 mg Tablet PO (08:06)
[2025-08-10] MEDS: venlafaxine ER (24HR) 150 mg Capsule PO (08:06)
[2025-08-10] MEDS: paliperidone palmitate 156 mg Syringe IM (11:46)
--- NOTE | 2025-08-10 11:49 | PC.NURSE ---
Pt given Invega 156mg IM in L deltoid. Pt tolerated well.
[2025-08-10 13:45] VITALS: BP 94/58; PULSE 83; RESP 14; TEMP 36.8; O2SAT 98
--- NOTE | 2025-08-10 18:06 | P.NPUPN_ITS ---
Subjective NPU 2 Subjective: Patient presented today reporting that things were going better. She continued to endorse possibly needing something for an oral abscess on her upper right molar. We discussed, benefits and alternatives of starting an antibiotic and she understood and agreed to proceed as documented in this note. We also discussed talking to her facility and asking them to come and visit and see if they think she has made the progress necessary to return. Otherwise she reports continuing to feel better on the medication and denied any side effects that her current medications. Mental Status Exam 2 MSE Comments: This is an overweight white female in hospital scrubs with poor grooming but adequate eye contact looking her stated age with poor dentition. No abnormal movements except for mild psychomotor retardation. Cooperative with exam in mild distress. Speech was more normal rate and volume. Mood described as better, affect congruent and slightly subdued. Thought process linear at times and starting to appear more organized thought content: Patient denied suicidal or homicidal ideation, there were no delusions reported at likely grandiose delusions noted, she did not appear to be attending to internal stimuli. Attention and concentration were limited and memory appeared more reliable but none were formally tested. She is alert and oriented x 3. Insight, judgment and impulse control are improving. Vitals/I&O/Wt Last Vital Signs Temp 98.2 F 08/10/25 13:45 Pulse 83 08/10/25 13:45 Resp 14 08/10/25 13:45 BP 94/58 08/10/25 13:45 Pulse Ox 98 08/10/25 13:45 O2 Del Method Room Air 08/10/25 13:45 Data NPU 07/29/25 12:26 07/29/25 12:26 A&P Assessment and plan 1. Acute psychosis: 2. Suicidal ideation: 3. Matilda: Plan: This is a 40-year-old white female with no significant previous contact with psychiatric services here per her records but presents from a recovery facility with odd behaviors that seem likely manic in nature with her increased speech and erratic behaviors presents on a 96-hour hold. 1. Continue current medications but add a mood stabilizer. She has listed all psych meds as her medications with which she has allergies but she could not report taking the medications before like lithium or Invega/Abilify and she was agreeable to trying something. Started Invega 6 mg p.o. daily. Discussed initiating the Invega injection once we have her certain we have clear improvement. Invega Sustenna 234 mg IM was given. Patient given deltoid injection since it was a loading dose. Increased Invega to 9 mg p.o. daily and consider need for her injection to be monthly at 234 mg. Her second injection of 156 mg IM to deltoid due 08/12/2025 ?4 days. Likely give second injection tomorrow. 2. Continue every 15 minute checks for safety. 3. Encourage individual, group and milieu therapies. 4. Encourage sober living treatment after discharge at the highest level of care to which she is willing to commit. Will speak to her program and invite them to come and do a visit to see where they think she is cognitively and therefore close to a place where they think she would be able to succeed back in the program. 5. Obtain collateral information. We will see if [facility] has any records on her about her medications. Received paperwork from [facility] identifying a history of multiple hospitalizations in her life with this being the third for her since March. 6. Evaluate against the backdrop of the 96-hour hold. Patient on 21-day hold. PDMP PDMP Reviewed: Not Reviewed Involuntary Hold Information 2 Hold Status: Legal Status: 21 Day Hold Date/Time Hold Expires: 08/26/25 Attestations NPU 2 Medical Necessity Statement*: Inpatient hospitalization is medically necessary and deemed to be the clinically appropriate intervention at this time. We will monitor and initiate medications while making changes as indicated. Her likely length of stay is 2-5 days. Coding Level of Care Code Acute Code for [facility] Fwd Diagnoses Acute psychosis F23 Suicidal ideation R45.851 Matilda F30.9
[2025-08-10 20:01] VITALS: BP 101/69; PULSE 77; RESP 16; TEMP 36.9; O2SAT 96
[2025-08-11 06:00] VITALS: BP 110/72; PULSE 66; RESP 16; TEMP 36.5; O2SAT 95
[2025-08-11] MEDS: venlafaxine ER (24HR) 150 mg Capsule PO (09:01)
[2025-08-11] MEDS: paliperidone ER 9 mg Tablet PO (09:01)
[2025-08-11 14:00] VITALS: BP 109/74; PULSE 89; RESP 22; TEMP 36.8; O2SAT 98
--- NOTE | 2025-08-11 15:01 | P.NPUPN_ITS ---
Subjective NPU 2 Subjective: Patient presented today reporting that things are going all right. He is currently going better waiting antibiotic. He gets the antibiotic today that she believes will be very helpful for her abscessed tooth. She continues to report feeling that she is making improvements and she does appear like she is being clearer cognitively per staff reports and direct observation. She denied any side effects of the medication Mental Status Exam 2 MSE Comments: This is an overweight white female in hospital scrubs with poor grooming but adequate eye contact looking her stated age with poor dentition. No abnormal movements except for mild psychomotor retardation. Cooperative with exam in mild distress. Speech was more normal rate and volume. Mood described as better, affect congruent and slightly subdued. Thought process linear at times and starting to appear more organized thought content: Patient denied suicidal or homicidal ideation, there were no delusions reported at likely grandiose delusions noted, she did not appear to be attending to internal stimuli. Attention and concentration were limited and memory appeared more reliable but none were formally tested. She is alert and oriented x 3. Insight, judgment and impulse control are improving. Vitals/I&O/Wt Last Vital Signs Temp 98.2 F 08/11/25 14:00 Pulse 89 08/11/25 14:00 Resp 22 H 08/11/25 14:00 BP 109/74 08/11/25 14:00 Pulse Ox 98 08/11/25 14:00 O2 Del Method Room Air 08/11/25 14:00 Data NPU 07/29/25 12:26 07/29/25 12:26 A&P Assessment and plan 1. Acute psychosis: 2. Suicidal ideation: 3. Matilda: Plan: This is a 40-year-old white female with no significant previous contact with psychiatric services here per her records but presents from a recovery facility with odd behaviors that seem likely manic in nature with her increased speech and erratic behaviors presents on a 96-hour hold. 1. Continue current medications but add a mood stabilizer. She has listed all psych meds as her medications with which she has allergies but she could not report taking the medications before like lithium or Invega/Abilify and she was agreeable to trying something. Started Invega 6 mg p.o. daily. Discussed initiating the Invega injection once we have her certain we have clear improvement. Invega Sustenna 234 mg IM was given. Patient given deltoid injection since it was a loading dose. Increased Invega to 9 mg p.o. daily and consider need for her injection to be monthly at 234 mg. Her second injection of 156 mg IM to deltoid due 08/12/2025 ?4 days. Likely give second injection tomorrow. 2. Continue every 15 minute checks for safety. 3. Encourage individual, group and milieu therapies. 4. Encourage sober living treatment after discharge at the highest level of care to which she is willing to commit. Will speak to her program and invite them to come and do a visit to see where they think she is cognitively and therefore close to a place where they think she would be able to succeed back in the program. 5. Obtain collateral information. We will see if [facility] has any records on her about her medications. Received paperwork from [facility] identifying a history of multiple hospitalizations in her life with this being the third for her since March. 6. Evaluate against the backdrop of the 96-hour hold. Patient on 21-day hold. PDMP PDMP Reviewed: Not Reviewed Involuntary Hold Information 2 Hold Status: Legal Status: 21 Day Hold Date/Time Hold Expires: 08/26/25 Attestations NPU 2 Medical Necessity Statement*: Inpatient hospitalization is medically necessary and deemed to be the clinically appropriate intervention at this time. We will monitor and initiate medications while making changes as indicated. Her likely length of stay is 2-4 days. Coding Level of Care Code Acute Code for [facility] Fwd Diagnoses Acute psychosis F23 Suicidal ideation R45.851 Matilda F30.9
[2025-08-11 20:39] VITALS: BP 109/73; PULSE 87; RESP 16; TEMP 37; O2SAT 96
[2025-08-12 06:00] VITALS: BP 96/57; PULSE 74; RESP 16; TEMP 36.8; O2SAT 96
[2025-08-12] MEDS: venlafaxine ER (24HR) 150 mg Capsule PO (08:44)
[2025-08-12] MEDS: paliperidone ER 9 mg Tablet PO (08:44)
--- NOTE | 2025-08-12 09:46 | NUR.SHIFT ---
Pt states that she slept good last night. Rates anxiety 2/10 depression 2/10. No reports of SI/HI or hallucinations. No pain reported. She is calm and cooperative on assessment.
--- NOTE | 2025-08-12 12:40 | P.NPUDS_ITS ---
Diagnoses at Discharge Discharge Diagnosis 1. Acute psychosis: 2. Suicidal ideation: 3. Matilda: Reason for Visit Reason for Visit: 96 Involuntary Hold Information Hold Status: Legal Status: 21 Day Hold Date/Time Hold Expires: 08/26/25 Mental Status Exam MSE Comments: This is an overweight white female in hospital scrubs with poor grooming but adequate eye contact looking her stated age with poor dentition. No abnormal movements except for mild psychomotor retardation. Cooperative with exam in mild distress. Speech was more normal rate and volume. Mood described as better, affect congruent and slightly subdued. Thought process linear at times and starting to appear more organized thought content: Patient denied suicidal or homicidal ideation, there were no delusions reported at likely grandiose delusions noted, she did not appear to be attending to internal stimuli. Attention and concentration were limited and memory appeared more reliable but none were formally tested. She is alert and oriented x 3. Insight, judgment and impulse control are improving. Discharge Data Studies Completed and Pending: Laboratory Results WBC 8.74 10^3/uL (3.2 9-11.43) 07/29/25 12:26 RBC 3.74 10^6/uL (3.8 5-5.65) L 07/29/25 12:26 Hgb 11.20 g/dL (11.27 -16.99) L 07/29/25 12:26 Hct 33.7 % (36-47) L 07/29/25 12:26 MCV 90.1 fl (85-98) 07/29/25 12:26 MCH 29.9 pg (27-33) 07/29/25 12:26 MCHC 33.2 g/dL (30-55) 07/29/25 12:26 RDW 15.4 % (12.1-15.1 ) H 07/29/25 12:26 Plt Count 280 10^3/cmm (157 -399) 07/29/25 12:26 MPV 9.6 fL (7.4-10.4) 07/29/25 12:26 Neut % (Auto) 56.8 % 07/29/25 12:26 Lymph % (Auto) 35.4 % 07/29/25 12:26 [place] % (Auto) 5.0 % 07/29/25 12:26 Eos % (Auto) 2.1 % 07/29/25 12:26 Baso % (Auto) 0.5 % 07/29/25 12: Neut # (Auto) 4.97 10^3/uL (1.8 -7.7) 07/29/25 12: Lymph # (Auto) 3.1 10^3/uL (0.8- 4.8) 07/29/25 12:26 [place] # (Auto) 0.4 10^3/uL (0.2- 0.9) 07/29/25 12: Eos # (Auto) 0.2 10^3/uL (0.0- 0.8) 07/29/25 12: Baso # (Auto) 0.0 10^3/uL (0.0- 0.1) 07/29/25 12: Nucleated RBC % (a uto) 0 % 07/29/25 12: Nucleated RBCs # 0.0 /100WBC 07/29/25 12:26 Sodium 137 mmol/L (136-1 45) 07/29/25 12:26 Potassium 3.8 mmol/L (3.5-5 .1) 07/29/25 12:26 Chloride 102 mmol/L (98-10 7) 07/29/25 12: Carbon Dioxide 24 mmol/L (22-29) 07/29/25 12:26 Anion Gap 14.8 (5-19) 07/29/25 12:26 BUN 15 mg/dL (6-20) 07/29/25 12:26 Creatinine 0.6 mg/dL (0.5-0. 9) 07/29/25 12:26 GFR Calculation 109.6 mL/min (90- 130) 07/29/25 12:26 Glucose 104 mg/dL (65-115 ) 07/29/25 12:26 POC Glucose 76 mg/dL (70-110) 08/12/25 10:09 Calculated Osmolal ity 285 mOsm/kg (285- 295) 07/29/25 12:26 Calcium 8.7 mg/dL (8.5-10 .5) 07/29/25 12:26 Total Bilirubin 0.2 mg/dL (0.15-1 .2) 07/29/25 12:26 AST 8 U/L (0-32) 07/29/25 12:26 ALT 6 U/L (0-33) 07/29/25 12:26 Alkaline Phosphata se 101 U/L (35-105) 07/29/25 12:26 Total Protein 6.9 g/dL (6.6-8.7 ) 07/29/25 12: Albumin 3.7 g/dL (3.5-5.2 ) 07/29/25 12: Globulin 3.2 g/dL (1.3-4.6 ) 07/29/25 12: TSH 1.50 uIU/mL (0.27 -4.20) 07/29/25 12:26 HCG, Qual Negative (Negati ve) 07/29/25 12:20 Urine Color [facility] (Yellow) A 07/29/25 12:20 Urine Appearance Cloudy (CLEAR) A 07/29/25 12:20 Urine pH 5.0 (5-7) 07/29/25 12:20 Ur Specific Gravit y 1.024 (1.005-1.0 30) 07/29/25 12:20 Urine Protein 1+ (Negative) A 07/29/25 12:20 Urine Glucose (UA) Negative (Normal ) 07/29/25 12:20 Urine Ketones Trace (Negative) 07/29/25 12:20 Urine Blood 3+ (Negative) A 07/29/25 12:20 Urine Nitrate Negative (Negati ve) 07/29/25 12:20 Urine Bilirubin Negative (Negati ve) 07/29/25 12:20 Urine Urobilinogen 1.0 mg/dL (Negati ve) 07/29/25 12:20 Ur Leukocyte Lin ase 1+ (Negative) A 07/29/25 12:20 Urine RBC 11-20 /hpf (0-2) H 07/29/25 12:20 Urine WBC 51-100 /hpf (0-5) H 07/29/25 12:20 Ur Squamous Epith Cells 11-20 /hpf (0-5) H 07/29/25 12:20 Amorphous Sediment Not Reportable 07/29/25 12:20 Urine Bacteria 4+ /hpf (NONE) H 07/29/25 12:20 Hyaline Casts 0-4 /lpf H 07/29/25 12:20 Salicylates < 0.3 mg/dL (3-10 ) L 07/29/25 12:26 Urine Opiates Scre en Negative ng/mL (N egative) 07/29/25 12:20 Acetaminophen < 5.0 ug/mL (10-3 0) L 07/29/25 12:26 Ur Barbiturates Sc reen Negative ng/mL (N egative) 07/29/25 12:20 Ur Phencyclidine S crn Negative ng/mL (N egative) 07/29/25 12:20 Ur Amphetamines Sc reen Negative ng/mL (N egative) 07/29/25 12:20 U Benzodiazepines Scrn Negative ng/mL (N egative) 07/29/25 12:20 Urine Cocaine Scre en Negative ng/mL (N egative) 07/29/25 12:20 U Marijuana (THC) Screen Negative ng/mL (N egative) 07/29/25 12:20 Ethyl Alcohol < 10 mg/dL (0-10) 07/29/25 12:26 Vitals: Last Vital Signs Temp 98.2 F 08/12/25 06:00 Pulse 74 08/12/25 06:00 Resp 16 08/12/25 06:00 BP 96/57 08/12/25 06:00 Pulse Ox 96 08/12/25 06:00 O2 Del Method Room Air 08/12/25 06:00 Discharge Plan Discharge Patient Disposition: Home Condition: Stable Prescriptions: New cephalexin 500 mg tablet 500 mg PO TID 7 Days Qty: 21 0RF olanzapine 5 mg Tablet,Disintegrating 5 mg PO DAILY PRN (Reason: Agitation/Psychosis) Qty: 30 1RF amoxicillin 500 mg Capsule 500 mg PO TID 6 Days Qty: 17 0RF Invega Sustenna 234 mg/1.5 mL syringe 234 mg IM Q30D 30 Days Qty: 1.5 2RF Rx Instructions: Next injection 09/09/2025 then as directed paliperidone 9 mg Tablet Extended Release 24hr 9 mg PO DAILY 14 Days Qty: 14 1RF Rx Instructions: Check for 14 days and then discontinue. Patient is on long-acting injectable. Continued polyethylene glycol 3350 [Miralax] 17 gram/dose powder 4 g PO DAILY Qty: 119 0RF venlafaxine 150 mg Capsule,Extended Release 24hr 150 mg PO DAILY 30 Days Qty: 30 1RF hydroxyzine HCl 50 mg Tablet 50 mg PO BID PRN (Reason: Anxiety) 30 Days Qty: 60 1RF prazosin 2 mg Capsule 4 mg PO BEDTIME 30 Days Qty: 60 1RF Discontinued quetiapine 25 mg Tablet 25 mg PO TID PRN (Reason: Agitation) Discharge Order = DC NOW: Discharge Order (Routine); Ordered 08/12/25 Ordered By: Harry Lopez Referrals: [facility] [Other] - 08/15/25 1:00 pm Referral Note: Telehealth Assessment. [facility] [Outside, Behavioral Health] - 08/17/25 12:30 pm Referral Note: Initial assessment appointment. Willy Bell MD [Physician, Family Practice] - 09/02/25 8:00 am Referral Note: Establish care Discharge Diet: Regular Discharge Activity: Resume usual activity Patient Instructions: Opioid Safety, Pain Management, Patient Portal & [facility] Instructions Discharge Attestations NPU Time Spent in Discharge Care*: less than 30 min Specific Discharge Activities: Specific discharge activities: educating patient, discussing with case mgr/social workers/dc planners, documenting/other paperwork and evaluating patient/reviewing data Coding Level of Care Code Acute Code for [facility] Fwd Diagnoses Acute psychosis F23 Suicidal ideation R45.851 Matilda F30.9
[2025-08-12 13:16] VITALS: BP 118/70; PULSE 86; RESP 22; TEMP 37.2; O2SAT 99
[2025-08-12 14:00] VITALS: BP 118/70; PULSE 86; RESP 22; TEMP 37.2; O2SAT 99
== END 2025-08-12 15:30 | disposition home or self-care (01) | DRG 880 ==
LOC: ER 12:56 → NP 14:26
PROVIDERS: Admitting Provider Psychiatry & Neurology Psychiatry; Emergency Provider Emergency Medicine; Visit Provider Psychiatry & Neurology Psychiatry
DX: R45.851 Suicidal ideations (principal); N39.0 Urinary tract infection, site not specified; F30.2 Manic episode, severe with psychotic symptoms; E66.3 Overweight; Z68.28 Body mass index [BMI] 28.0-28.9, adult; F41.9 Anxiety disorder, unspecified
CPT/HCPCS: 36415; 36416; 80053; 80306; 80307; 81001; 81025; 82962; 84443; 85025; 93005; 96372; 97150; 97165; 99285; J9999; Q0162

== ENCOUNTER 2025-08-15 08:52 | Inpatient (IN) | payer MEDICAID, SELFPAY ==
--- OUTSIDE RECORDS SUMMARY | 2017-07-21 07:00 | XMS_ITS | Continuity of Care Document ---
Author Organization [employer] [facility] Address [address] [address] Phone Care Team Providers Care Music Arranger Name Role Phone Emmett Hahn MD Unavailable [...] Diagnoses Date Provider Providers Copied on Encounter [facility], [address] [address], [place], [place], [id number] , tel: [phone] [facility], [facility]. NB No Information Jovani Christine. [address] [facility], [address], [place], [place], [id number] , . tel: [phone] Offic/outpt E&m New Mod-hi 60 [facility], [address] [facility] [address], [place], [place], [id number] , tel: [phone] [facility], [facility]. NB Heroin dependency and Opiate dependency (chief complaint) Heroin dependenceEncntr for senior inspector exam (general) (routine) w/o abn findingsMethamphetam ine dependenceModerate episode of recurrent major depressive disorder Jovani Christine. [address] [facility], [address], [place], [place], [id number] , . tel: [phone] Family History Family Member Type Diagnosis Age At Onset No Information Payers Payer name Insurance type Covered constitution party ID Authoriza derrick(s) [facility] CI 00 Social History Type Description Quantity Date Captured Comments Sex Female Smoking Status No Information Chief Complaint And Reason For Visit No Information Reason For Referral Reason For Referral No Information History Of Present Illness Encounter Date Complaint History Of Prese nt Illness Heroin dependency an d Opiate dependency 30 year old female admitted to [facility] for Rehab and needs a letter for clearance to fly to [place] tomorrow to [facility]. The Patient has a history [...] use was 7 months ago. Prior Treatments: [facility] for Detox/Rehab 21 days and was sober [...] been on non-medical surveillance since arriving at [facility] on Friday05/24/16. She will be transferring to [facility]-owned or related facility in [place].Patient is medically stable for her flight tomorrow, [...]
--- OUTSIDE RECORDS SUMMARY | 2022-07-25 06:46 | XMS_ITS | Continuity of Care Document ---
Author Organization [facility] Address [address] [place] [id number] Phone Care Team Providers Care Supervisor Estimator And Drafter Name Role Phone Janey Paris APRN Unavailable Unavailable Allergies, Adverse Reactions, Alerts Substance Reaction Status Criticality codeine Nausea Active No Information Problems Condition Type Effective Dates (start - stop) Clini lissette Status Comments No Known Problems Advance Directives Directive Yes / No Effective Date File Name No Information Encounters Encounter Description Practice Location Reason(s) For Visit Diagnoses Date Provider [facility], [address] [place] [address], [id number], tel:[phone] [facility] No Information Jul-0 [address], [id number] [place], [place], [id number], . tel:[phone] [facility], [address] [place] [address], [id number], tel:[phone] [facility] PAP test (chief complaint) AnxietyEncounter for screening for malignant neoplasm of cervix [address], [id number] [place], [place], [id number], . tel:[phone] [facility], [address] [place] [address], [id number], tel:[phone] [facility] Anxiety (chief complaint)P reventive exam (chief complaint) Body mass index [BMI] 23.0-23.9, adultFatigueAnxietyADHD predominantly inattentive typeEncounter for general adult medical examination without abnormal findings 2 Inga Askew. [address] [place] [address], [id number] [place], [id number], [place]. tel:[phone] [facility], [address] [place] [address], [id number], [place] tel:[phone] [facility] Encounter for dental exam and cleaning w abnormal findingsEncounter for dental exam and cleaning w/o abnormal findingsDental caries on pit and fissure surface penetrat into pulp 0 Kevin Davidson. [address], [id number] [place], [place], [id number]. tel:[phone] [facility], [address] [place] [address], [id number], [place] tel:[phone] [facility] [place] Depression (chief complaint)f atigue (chief complaint) FatigueMajor depressive disorder, single episode, unspecified Feb- 6 Erin Ventura. [address] [place] [address], [id number] [place], [place], [id number]. tel:[phone] [facility], [address] [place] [address], [id number], [place] tel:[phone] [facility] Flu-like symptoms (chief complaint) InfluenzaCough Jan-0 2 6 Mannie Rain. [address] [place] [address], [id number] [place], [place], [id number]. tel:[phone] [facility], [address] [place] [address], [id number], [place] tel:[phone] [facility] [place] Arthalgias (chief complaint) Carpal tunnel syndrome, unspecified upper limb Feb-0 4 6 Mannie Rain. [address] [place] [address], [id number] [place], [place], [id number]. tel:[phone] [facility], [address] [place] [address], [id number], tel:[phone] [facility] [place] Rash (chief complaint) Abscess 4 Mannie Rain. [address] [place] [address], [id number] [place], [id number]. tel:[phone] [facility], [address] [place] [address], [id number], tel:[phone] [facility] [place] rash (chief complaint) Rash and other nonspecific skin eruptionDepression 4 No Information [facility], [address] [place] [address], [id number], tel:[phone] [facility] [place] sinus symptoms (acute) (chief complaint)r poli (chief complaint) CoughSinusitis, AcuteDermatophytosis of other specified sites 3 Akil Ruth. [address] [place] [address], [id number] [place], [place], [id number], [place]. tel:[phone] [facility], [address] [place] [address], [id number], tel:[phone] [facility] [place] infection (soft tissue) (chief complaint) Cellulitis 3 No Information Family History Family Member Type Diagnosis Age At Onset Mother Problem (finding) diabetes melli tus in first degree relative Maternal grandmother Problem (finding) tremors Payers Payer name Insurance type Covered alliance party ID Authoriza tion(s) No Information Social History Type Description Quantity Date Captured Comments Alcohol Use Details Unknown Caffeine Use Details Unknown Tobacco Use Status No Information Smoking Status No Information Sex Female Sexual Orientation Straight or heterosexual Gender Identity Female Chief Complaint And Reason For Visit No Information Plan Of Treatment Date Type Action Status Goal HPV. Due on due Goal Unhealthy drug use screening due Goal Hepatitis C Scre ening. Due on due Goal PRESCHOOL PROGRAM DIRECTOR exam. Due on due Goal Lipid Panel. Due on due Goal PAP. Due on due Goal H&P. Due on due Goal PRESCHOOL PROGRAM DIRECTOR exam. Due on due Goal Hepatitis C Scre ening. Due on due Goal HPV. Due on due Goal PAP. Due on due Goal Unhealthy drug use screening due Goal H&P. Due on due Goal Lipid Panel. Due on due Goal HPV. Due on due Goal Unhealthy drug use screening due Goal H&P. Due on due Goal Lipid Panel. Due on due Goal PRESCHOOL PROGRAM DIRECTOR exam. Due on due Goal PAP. Due on due Goal Hepatitis C Scre ening. Due on due Goal Lifestyle education regardin g diet completed Goal Pap/HPV testing. Due on due Goal Tdap. Due on due Goal Influenza vaccine. Due on due Goal Diabetes Screening. Due on A due Goal PAP. Due on due Goal PRESCHOOL PROGRAM DIRECTOR exam. Due on due Goal Td vaccine. Due on 16 due Goal Breast exam. Due on 016 due Goal Influenza vaccine. Due on due Goal Breast exam. Due on 016 due Goal Diabetes Screening. Due on due Goal Td vaccine. Due on 16 due Goal Pap/HPV testing. Due on due Goal PAP. Due on due Goal PRESCHOOL PROGRAM DIRECTOR exam. Due on due Goal Tdap. Due on due Goal PRESCHOOL PROGRAM DIRECTOR exam. Due on due Goal Tdap. Due on due Goal Td vaccine. Due on 16 due Goal Pap/HPV testing. Due on due Goal H&P. Due on [...] due Goal Tdap. Due on due Goal PRESCHOOL PROGRAM DIRECTOR exam. Due on due Goal Influenza vaccine. Due on due Goal PAP. Due on due Goal PAP. Due on due Goal Td vaccine. Due on 14 due Goal Screening Summary. Due on due Goal PRESCHOOL PROGRAM DIRECTOR exam. Due on due Goal Tdap. Due on due Goal Breast exam. Due on 013 due Referral Ordered: Referrals: Psychiatry. Evaluate and treat Appointment date/timeframe: 3 Days ordered Referral Ordered: Referrals: Social Work. Evaluate and treat ordered Referral Ordered: Referrals: Orthopedic Surgery. Follow-up and Treat ordered Future Order: Lab Order CBC With Differential/Platelet ([id number]), Ordered on: Ordered Future Order: Lab Order Comp. Me tabolic Panel (14) ([id number]), Ordered on: Ordered Future Order: Lab Order Hepatiti s C virus NS5A drug resistance ([id number]), Ordered on: Ordered Future Order: Lab Order Lipid Pa renate w/ Chol/HDL Ratio ([id number]), Ordered on: Ordered Future Order: Lab Order Vitamin D, 25-Hydroxy ([id number]), Ordered on: Ordered Future Order: Lab Order Urinalys is, Routine ([id number]), Ordered on: Ordered Future Order: Lab Order TSH ([id number]), Ord ered on: Ordered History Of Present [...] RTC after appt Related to Anxie ty [facility] - Information e xplained to pt in [...]
[2025-08-15 08:53] VITALS: BP 133/89; PULSE 101; RESP 17; TEMP 37; O2SAT 98; BMI 27.3
--- NOTE | 2025-08-15 08:55 | XR_ITS ---
WS: [id number] Exam: XR chest 1V portable [id number] Date/Time of Exam: 08/15/2025 8:55 AM Reason For Exam: dyspnea/cough No priors. The lungs are fully inflated and clear. Normal cardiomediastinal silhouette. Bony structures are intact. XR/XR chest 1V portable [id number] IMPRESSION: 1. Normal chest.
--- NOTE | 2025-08-15 09:00 | USCV_ITS ---
Kenyetta Sommer Age: 40 Gender: F : 1985 Exam Date: 08/15/2025 10:07 Ordering Phys: Salvador Mo DO Technologist: Exam Location: [facility]_ Indication: bilat swelling PROCEDURES: The venous duplex Doppler examination of both lower extremities was performed in the standard fashion. The following venous structures were evaluated: common femoral vein, profunda vein, proximal portion of the greater saphenous vein, superficial femoral vein, and the popliteal vein. In addition, the posterior tibial and peroneal trunk were evaluated. FINDINGS: Normal 2-D Doppler and augmentation and compressibility throughout the lower extremity venous structures. Additional imaging through the proximal calf veins also reveals no thrombus. Limited evaluation of the greater saphenous vein is patent with no thrombus. CONCLUSIONS No DVT bilateral lower extremities. Dr. Janey Ocasio DO (Electronically Signed) Final Date: 15 August 2025 11:43 S
--- NOTE | 2025-08-15 09:03 | ECG_ITS ---
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 Measurements Intervals [place] Rate: 104 P: 43 TX: 112 QRS: 53 QRSD: 94 T: 40 QT: 374 QTc: 492 Interpretive Statements SINUS TACHYCARDIA WITH SHORT TX INTERVAL ABNORMAL RHYTHM ECG Compared to ECG 07/29/2025 12:35:21 Short TX interval now present Sinus rhythm no longer present Electronically Signed On 08-15-2025 20:21:14 CDT by Rigo Garcia M.D. [email or web address]
[2025-08-15 09:10] LABS: Hematocrit 33.9 % (36-47); Hemoglobin 11.10 g/dL (11.27-16.99); Mean Corpuscular HGB Conc 32.7 g/dL (30-55); Mean Corpuscular Hemoglobin 29.6 pg (27-33); Mean Corpuscular Volume 90.4 fl (85-98); Nucleated Red Blood Cells % 0 %; Platelet Count 219 10^3/cmm (157-399); Red Blood Count 3.75 10^6/uL (3.85-5.65); White Blood Count 9.85 10^3/uL (3.29-11.43)
--- NOTE | 2025-08-15 09:22 | ED_ITS ---
HPI - Overdose 2 General: Chief Complaint: Overdose Stated Complaint: OD Time Seen by Provider: 08/15/25 08:53 History of Present Illness: 40-year-old female presents emergency ro om from crisis. She was recently discharged from NPU 3 days ago. She states she has not been able to sleep she took an unknown number of hydroxyzine as well as 2 trazodone from her friend she does not know the milligram strength of that. She states she did not take it to harm herself she was just trying to sleep. There was also some mention that she may have taken some Invega p.o. Related Data Previous Rx's ?Medication ?Instructions ?Recorded amoxicillin 500 mg capsule 500 mg PO TID 6 days #17 ca ps 08/12/25 hydroxyzine HCl 50 mg tablet 50 mg PO BID PRN Anxiety 30 days 08/12/25 #60 tabs olanzapine 5 mg disintegrating 5 mg PO DAILY PRN 08/12 tablet Agitation/Psychosis #30 tabs paliperidone 9 mg tablet,extended 9 mg PO DAILY 14 day s #14 tabs 08/12/25 release 24 hr paliperidone palmitate 234 mg/1.5 234 mg (1.5 mL) IM Q 30D 30 days 08/12/25 mL intramuscular syringe (Invega #1.5 mL Sustenna) prazosin 2 mg capsule 4 mg (2 x 2 mg) PO BEDTIME 3 0 days 08/12/25 #60 caps venlafaxine 150 mg 150 mg PO DAILY 30 days #30 caps 08/12/25 capsule,extended release 24 hr Allergies Allergy/AdvReac Type Severity Reaction Status Date / Time haloperidol (From Haldol) Allergy Unknown Verified 07/23/25 21:50 trazodone AdvReac Severe ADR-Nightma Verified 08/09/25 21:23 re any psych med Allergy Unknown Uncoded 07/23/25 21:50 Review of Systems 2 Const: Denies: fever(s) or chills Card: Denies: chest pain Resp: Denies: dyspnea GI: Denies: abdominal pain : Denies: dysuria, urinary frequency or urinary urgency Musc: Denies: neck pain or back pain Skin/Breast: Denies: rash Physical Exam 2 Const: COMMON NORMALS: no acute distress GENERAL APPEARANCE: cooperative and comfortable ORIENTATION/CONSCIOUSNESS: Yes awake, Yes oriented to person, Yes oriented to place and Yes oriented to time HENMT: COMMON NORMALS: normocephalic, atraumatic and hearing grossly normal bilaterally HEAD & SCALP: normocephalic and atraumatic Resp: COMMON NORMALS: normal respiratory effort, No retractions, No use of accessory muscles and clear to auscultation bilaterally AUSCULTATION: clear to auscultation bilaterally Cardio: COMMON NORMALS: regular rate, regular rhythm and No murmurs present (Cardio) RATE: regular rate RHYTHM: regular rhythm GI: COMMON NORMALS: Soft to palpation and No hepatosplenomegaly present A USCULTATION: Yes normoactive bowel sounds PALPATION: Yes Soft to palpation, No Tenderness to palpation present (GI), No Guarding due to palpation present (GI) and Yes No hepatosplenomegaly present Extremity: COMMON NORMALS: normal to inspection, capillary refill normal, no clubbing, cyanosis or edema, no calf tenderness and no pedal edema Neuro: SENSORIUM/ORIENTATION: Yes oriented to person, Yes oriented to place and Yes oriented to time Skin: COMMON NORMALS: no rashes or lesions noted GENERAL SKIN EXAM: no rashes or lesions noted Course 2 Vital Signs: Vital signs: Vital Signs Temperature 98.3 F 08/15/25 13:33 Pulse Rate 100 08/15/25 13:33 Respiratory Rate 20 H 08/15/25 13:33 Blood Pressure 105/65 08/15/25 13:33 Pulse Oximetry 96 08/15/25 13:33 Oxygen Delivery Me thod Room Air 08/15/25 13:33 MDM - Overdose Medical Decision Making We were able to find all of her prescription meds count and them. Her Invega count matches when the brought bottle was prescribed for the number that are missing. It did not appear that she took any access of that. We had initially contacted poison control they had recommended monitoring for at least 24 hours. Now that we can verify she had not taken any Invega we are able to admit directly to the MPU. Admission orders changed to psychiatry discussed with psychiatrist notified hospitalist who we had previously talked about monitoring in the ICU. Medical Records I reviewed the patient's medical records. Lab Data I reviewed the patient's lab results. 08/15/25 09:05 08/15/25 09:05 Radiology Impressions Chest X-Ray 08/15/25 08:55 IMPRESSION: 1. Normal chest. Laboratory Results WBC 9.85 10^3/uL (3.29-11.43) 08/15/25 09:05 RBC 3.75 10^6/uL (3.85-5.65) L 08/15/25 09:05 Hgb 11.10 g/dL (11.27-16.99) L 08/15/25 09:05 Hct 33.9 % (36-47) L 08/15/25 09:05 MCV 90.4 fl (85-98) 08/15/25 09:05 MCH 29.6 pg (27-33) 08/15/25 09:05 MCHC 32.7 g/dL (30-55) 08/15/25 09:05 RDW 15.4 % (12.1-15.1) H 08/15/25 09:05 Plt Count 219 10^3/cmm (157-399) 08/15/25 09:05 MPV 9.9 fL (7.4-10.4) 08/15/25 09:05 Neut % (Auto) 66.4 % 08/15/25 09:05 Lymph % (Auto) 23.9 % 08/15/25 09:05 [place] % (Auto) 6.5 % 08/15/25 09:05 Eos % (Auto) 2.2 % 08/15/25 09:05 Baso % (Auto) 0.3 % 08/15/25 09:05 Neut # (Auto) 6.54 10^3/uL (1.8-7.7) 08/15/25 09:05 Lymph # (Auto) 2.4 10^3/uL (0.8-4.8) 08/15/25 09:05 [place] # (Auto) 0.6 10^3/uL (0.2-0.9) 08/15/25 09:05 Eos # (Auto) 0.2 10^3/uL (0.0-0.8) 08/15/25 09:05 Baso # (Auto) 0.0 10^3/uL (0.0-0.1) 08/15/25 09:05 Nucleated RBC % (auto) 0 % 08/15/25 09:05 Nucleated RBCs # 0.0 /100WBC 08/15/25 09:05 Sodium 137 mmol/L (136-145) 08/15/25 09:05 Potassium 4.0 mmol/L (3.5-5.1) 08/15/25 09:05 Chloride 101 mmol/L (98-107) 08/15/25 09:05 Carbon Dioxide 23 mmol/L (22-29) 08/15/25 09:05 Anion Gap 17.0 (5-19) 08/15/25 09:05 BUN 16 mg/dL (6-20) 08/15/25 09:05 Creatinine 0.7 mg/dL (0.5-0.9) 08/15/25 09:05 GFR Calculation 91.8 mL/min (90-130) 08/15/25 09:05 Glucose 144 mg/dL (65-115) H 08/15/25 09:05 Calculated Osmolality 288 mOsm/kg (285-295) 08/15/25 09:05 Calcium 9.1 mg/dL (8.5-10.5) 08/15/25 09:05 Magnesium 2.0 mg/dL (1.7-2.3) 08/15/25 09:05 Total Bilirubin 0.2 mg/dL (0.15-1.2) 08/15/25 09:05 AST 22 U/L (0-32) 08/15/25 09:05 ALT 30 U/L (0-33) 08/15/25 09:05 Alkaline Phosphatase 116 U/L (35-105) H 08/15/25 09:05 NT-Pro-B Natriuret Pep 49 pg/mL (0-125) 08/15/25 09:05 Total Protein 7.3 g/dL (6.6-8.7) 08/15/25 09:05 Albumin 4.0 g/dL (3.5-5.2) 08/15/25 09:05 Globulin 3.3 g/dL (1.3-4.6) 08/15/25 09:05 Urine Color Yellow (Yellow) 08/15/25 09:48 Urine Appearance Clear (CLEAR) 08/15/25 09:48 Urine pH 5.0 (5-7) 08/15/25 09:48 Ur Specific [place] 1.006 (1.005-1.030) 08/15/25 09:48 Urine Protein Negative (Negative) 08/15/25 09:48 Urine Glucose (UA) Negative (Normal) 08/15/25 09:48 Urine Ketones Negative (Negative) 08/15/25 09:48 Urine Blood Negative (Negative) 08/15/25 09:48 Urine Nitrate Negative (Negative) 08/15/25 09:48 Urine Bilirubin Negative (Negative) 08/15/25 09:48 Urine Urobilinogen 0.2 mg/dL (Negative) 08/15/25 09:48 Ur Leukocyte Esterase Negative (Negative) 08/15/25 09:48 Urine RBC 0-2 /hpf (0-2) 08/15/25 09:48 Urine WBC 0-5 /hpf (0-5) 08/15/25 09:48 Ur Squamous Epith Cells 0-5 /hpf (0-5) 08/15/25 09:48 Amorphous Sediment Not Reportable 08/15/25 09:48 Urine Bacteria None seen /hpf (NONE) 08/15/25 09:48 Hyaline Casts 0-4 /lpf H 08/15/25 09:48 Salicylates < 0.3 mg/dL (3-10) L 08/15/25 09:05 Urine Opiates Screen Negative ng/mL (Negative) 08/15/25 09:48 Acetaminophen < 5.0 ug/mL (10-30) L 08/15/25 09:05 Ur Barbiturates Screen Negative ng/mL (Negative) 08/15/25 09:48 Ur Phencyclidine Scrn Negative ng/mL (Negative) 08/15/25 09:48 Ur Amphetamines Screen Negative ng/mL (Negative) 08/15/25 09:48 U Benzodiazepines Scrn Negative ng/mL (Negative) 08/15/25 09:48 Urine Cocaine Screen Negative ng/mL (Negative) 08/15/25 09:48 U Marijuana (THC) Screen Negative ng/mL (Negative) 08/15/25 09:48 Ethyl Alcohol < 10 mg/dL (0-10) 08/15/25 09:05 All radiology interpretation(s) finalized by discharge EKG Data EKG 1: Interpretation: EKG 08/15/2025 9:03 AM sinus tachycardia rate of 104 AR interval 112 QTc [address] changes. EKG compared to 07/29/2025 Discharge Plan Discharge Patient Disposition: Admitted As Inpatient Admit Provider: Ghanshyam Salcedo Clinical Impression: Drug overdose, Suicide attempt by multiple drug overdose, Bipolar disorder with severe sari Condition: Stable Coding Level of Care Code ED Investor Relations Coordinator for Kenneth Frazier
[2025-08-15 09:53] VITALS: PULSE 91; O2SAT 97
[2025-08-15 10:00] LABS: Glucose Urine UA Negative (Normal); Nitrate Urine Negative (Negative); Specific Gravity, Urine 1.006 (1.005-1.030)
[2025-08-15 10:05] LABS: Add Urine Microscopic? YES
[2025-08-15 10:08] LABS: PCP Screen Urine Negative (Negative)
--- NOTE | 2025-08-15 10:11 | PC.NURSE ---
Pt was read her 96 hour hold rights at this time. Security present.
[2025-08-15 10:49] LABS: Alanine Aminotransferase 30 U/L (0-33); Albumin Level 4.0 g/dL (3.5-5.2); Alkaline Phosphatase 116 U/L (35-105); Anion Gap 17.0 (5-19); Aspartate Amino Transferase 22 U/L (0-32); Blood Urea Nitrogen 16 mg/dL (6-20); Calcium 9.1 mg/dL (8.5-10.5); Carbon Dioxide 23 mmol/L (22-29); Chloride 101 mmol/L (98-107); Creatinine Clr Calc Pharmacy 117.3452; Globulin 3.3 g/dL (1.3-4.6); Glucose 144 mg/dL (65-115); Magnesium 2.0 mg/dL (1.7-2.3); Osmolality Calculated 288 mOsm/kg (285-295); Potassium 4.0 mmol/L (3.5-5.1); Sodium 137 mmol/L (136-145); Total Protein 7.3 g/dL (6.6-8.7)
[2025-08-15 10:50] LABS: Acetaminophen < 5.0 ug/mL (10-30); Alcohol Level < 10 mg/dL (0-10); Salicylate < 0.3 mg/dL (3-10)
[2025-08-15 10:53] LABS: NT Pro B Type Natriuretic Pept 49 pg/mL (0-125)
--- NOTE | 2025-08-15 11:10 | PC.NURSE ---
PT ARRIVES WITH HOME MEDICATIONS. THIS NURSE AND WITNESS NURSE YESENIA CANO RN COUNTED PT HOME MEDICATIONS. PT MISSING 23 TABS OF HYDROXYZINE.
[2025-08-15 12:20] VITALS: BP 133/89; PULSE 87; O2SAT 99
[2025-08-15 12:29] VITALS: BP 117/62; PULSE 101; RESP 16; TEMP 37.1; O2SAT 97
[2025-08-15 13:33] VITALS: BP 105/65; PULSE 100; RESP 20; TEMP 36.8; O2SAT 96
[2025-08-15 19:55] VITALS: BP 94/63; PULSE 84; RESP 17; TEMP 37; O2SAT 96
[2025-08-16 06:00] VITALS: BP 94/60; PULSE 78; RESP 16; TEMP 36.8; O2SAT 95
[2025-08-16] MEDS: venlafaxine ER (24HR) 150 mg Capsule PO (09:01)
[2025-08-16] MEDS: paliperidone ER 9 mg Tablet PO (09:01)
--- NOTE | 2025-08-16 09:27 | P.NPUHP_ITS ---
Providers/Chief Complaint 2 Admitting Physician: Ghanshyam Salcedo Chief Complaint: OD HPI NPU History of Present Illness Kenyetta Sommer is a 40 year old female with bipolar disorder who was recently discharged on 08/12/2025 from the neuropsychiatric unit who presented to the emergency department after she had allegedly taken 15 hydroxyzine's stating that she was unable to sleep over the past few days since her discharge from the neuropsychiatric unit. She was medically cleared and transferred to the neuropsychiatric unit for further evaluation and treatment. The patient reports that she was not feeling suicidal. She had stated that over the past 3 days she had not been sleeping well and simply took those medications to help her sleep. She denied any suicidal ideation. She stated that she had kept the other people up at her [facility] over the past few nights because she was unable to sleep. She had reported that she was having a blackout and did not remember anything about the current events. She had reported having some feelings of suicide but was unable to explain why or any clear reason for her to be here in the hospital. She had reported having periods of dissociation in the past. She had endorsed a prior history of PTSD symptoms. She was unable to describe any substantial changes from her recent hospitalization less than a week ago here. The patient had reported having continued problems with anxiety but was unable to elaborate. Patient continuing to reside at [facility]. Current medications: Paliperidone 9mg daily x14 days, Invega Sustenna 234mg IM/156mg IM given on 08/12/25. Olanzapine 5 mg at night Effexor XR 150 mg daily Prazosin 4 mg at bedtime Hydroxyzine 50 mg twice a day as needed for anxiety Excerpt from NPU admission note from 07/29/25 below: History of Present Illness Kenyetta Sommer is a 40 year old female who presented to the emergency department with the following report: Chief Complaint: Psychiatric Symptoms Stated Complaint: 96 History of Present Illness: 40-year-old female with a history of psychiatric issues and who is in a recovery center who presents emergency room from psychiatric clinic on a 96-hour hold. Apparently at the recovery unit she is at she would remain naked and try to hug the other people that were there. She reported to therapist that she was currently suicidal. When I talk to her she has flight of ideas and does report that she feels suicidal. She was admitted to the neuropsychiatric unit for definitive treatment of those issues. She is unknown to [facility] psychiatry through inpatient or outpatient services except for a brief outpatient assessment but did behave as if the 2 of us knew each other which this pattern chart writer has no recollection of any previous encounters. This is likely further indication of her presentation diagnostically as she presented with what appeared to be flight of ideas and talking very happy and positively about being here and having no to point to her words or conversation. She did confirm having had some feelings of suicidal thinking but could not explain why and did not specifically endorse depression. There were no rational answers to any of the questions that were given for the most part. She did report feeling safe and feeling positive that we were taking care of her. She did not answer any questions with purposeful information regarding her medications or her history of treatment. We discussed the risks, benefits and alternatives of us trying to get get collateral information about medications or previous treatment to use that to guide our approach to her likely sari but she did not appear to understand but did agree to proceed as is documented in his note. Per her 07/29/2025 [facility] outpatient mental health assessment: Current Presentation: Client arrived accompanied by individuals that were also from [facility]. Client was dishevelled, poor hygiene, poor communication skills, limited eye contact. Presenting Problem(s): Currently suicidal, Acute psychiatric crisis and Inability to meet basic needs Intervention: She was experiencing psychosis, delusions, and reported taking 140 mg Hydroxide times 4. She reported that she was only supposed to take one but they wouldn't work, so she took more. She scored high on the SI scale. Client reports history of SI and attempts. Could not contract for safety. Client was actively communicating with external delusions. The staff at the recovery house stated that she was naked and wanting to hug all the persons at the recovery house. When the [facility] inquired about it, she stated Why do I need to be clothed, because we are all just girls at that facility. Client stated I just want to get naked, hug people, and help them find [place] . Client was also delusional about her being and had difficulty with providing accurate history. [facility] was concerned about clients well being and requested for a 96 hour hold, or to be transferred to the ER. Judge sid mccann and [facility] picked her up, and took her to the ER for further observation. Client Response to Intervention: Im not in trouble am I Final Disposition: Client was pleasant when departed. Safety Plan Completed/Updated: No (Client did not contract for safety or assist in developing a safety plan. Meds NPU Home Medications ?Medication ?Instructions ?Recorded ?Confirmed ?Last Taken ?Type amoxicillin 500 mg capsule 500 mg PO TID 6 days #17 ca ps 08/12/25 08/15/25 08/15/25 05:00 Rx hydroxyzine HCl 50 mg tablet 50 mg PO BID PRN Anxiety 30 days 08/12/25 08/15/25 08/15/25 04:00 Rx #60 tabs olanzapine 5 mg disintegrating 5 mg PO DAILY PRN 08/1208/15/25 08/14/25 Rx tablet Agitation/Psychosis #30 tabs paliperidone 9 mg tablet,extended 9 mg PO DAILY 14 day s #14 tabs 08/12/25 08/15/25 08/15/25 04:00 Rx release 24 hr paliperidone palmitate 234 mg/1.5 234 mg (1.5 mL) IM Q 30D 30 days 08/12/25 08/15/25 08/09/25 Rx mL intramuscular syringe (Invega #1.5 mL Sustenna) prazosin 2 mg capsule 4 mg (2 x 2 mg) PO BEDTIME 3 0 days 08/12/25 08/15/25 08/14/25 22:00 Rx #60 caps venlafaxine 150 mg 150 mg PO DAILY 30 days #30 caps 08/12/25 08/15/25 08/15/25 04:00 Rx capsule,extended release 24 hr Allergies Allergy/AdvReac Type Severity Reaction Status Date / Time haloperidol (From Haldol) Allergy Unknown Verified 07/23/25 21:50 trazodone AdvReac Severe ADR-Nightma Verified 08/09/25 21:23 re any psych med Allergy Unknown Uncoded 07/23/25 21:50 Mental Status Exam 2 MSE Comments: This is an overweight white female in hospital scrubs with poor grooming but adequate eye contact looking her stated age with poor dentition. No abnormal involuntary motor movements except for psychomotor retardation. She was superficially cooperative with exam in mild to moderate distress. Speech was decreased in rate and decreased in volume with decrease in spontaneity. Mood described as ok. Affect was flat. Thought process was linear but superficial. Thought content: The patient denied any suicidal or homicidal ideation. There was signficant poverty of content. There was no evidence of delusional thinking. She did not appear to be responding to internal stimuli. There were no delusions reported at likely grandiose delusions noted, she did not appear to be attending to internal stimuli. Attention and concentration were limited and memory appeared unreliable but none were formally tested. She is alert and oriented to person and place, month and year. Insight, judgment and impulse control are impaired. Vitals/I&O/Wt Last Vital Signs Temp 98.2 F 08/16/25 06:00 Pulse 78 08/16/25 06:00 Resp 16 08/16/25 06:00 BP 94/60 08/16/25 06:00 Pulse Ox 95 08/16/25 06:00 O2 Del Method Room Air 08/16/25 06:00 Weight last 48 hrs Weight 81.647 kg Data NPU 08/15/25 09:05 08/15/25 09:05 A&P Assessment and plan 1. Bipolar depression: 2. Acute psychosis: 3. Suicidal ideation: 4. Sari: 5. PTSD (post-traumatic stress disorder): Plan: This is a 40-year-old white female recent disharge here less than a week ago presents with nearly similar overdose of hydroxyzine with bizarre presentation today with no evidence of sari but possible depression unable to provide meaningful information regarding her return here other than I couldn't sleep. 1. Restart outpatient medications. 2. Continue every 15 minute checks for safety. 3. Encourage individual, group and milieu therapies. 4. Encourage sober living treatment after discharge at the highest level of care to which she is willing to commit. 5. Obtain collateral information. 6. Evaluate against the backdrop of the 96-hour hold. PDMP PDMP Reviewed: Not Reviewed Involuntary Hold Information 2 Hold Status: Legal Status: 96 Hour Hold Date/Time Hold Expires: 08/19/25 @ 09:45 Attestations NPU 2 Medical Necessity Statement*: Inpatient hospitalization is medically necessary and deemed to be the clinically appropriate intervention at this time. The patient will be hospitalized for at least 2 days. We will monitor and initiate medications while making changes as indicated. Her likely length of stay is 5-7 days. Coding Level of Care Code Acute Code for Chg Fwd Diagnoses Bipolar depression F31.9 Acute psychosis F23 Suicidal ideation R45.851 Sari F30.9 PTSD (post-traumatic stress disorder) F43.10
[2025-08-16 13:51] VITALS: BP 89/55; PULSE 77; RESP 14; TEMP 36.9; O2SAT 94
[2025-08-16 19:35] VITALS: BP 102/67; PULSE 98; RESP 18; TEMP 36.7; O2SAT 95
[2025-08-17 06:00] VITALS: BP 100/58; PULSE 65; RESP 18; TEMP 36.8; O2SAT 97
[2025-08-17] MEDS: venlafaxine ER (24HR) 150 mg Capsule PO (08:29)
[2025-08-17] MEDS: paliperidone ER 9 mg Tablet PO (08:30)
--- NOTE | 2025-08-17 11:04 | PC.NURSE ---
Pt has appeared nervous and anxious all shift, meds have been given, all pt's needs are currently met.
--- NOTE | 2025-08-17 12:21 | NUR.SHIFT ---
Pt states that she slept good last night. She reports her anxiety is a 5/10 and depression 4/10. She denies SI/HI or hallucinations. She reports having an upset stomach, but no real pain. She is calm and cooperative on assessment. Founding sitting in dayroom with peers. It was noted this morning that pt has moments of forgetting what meds she recently took. She asks for anxiety meds and nicotine replacement within 30 min or having just received something.
[2025-08-17 14:00] VITALS: BP 96/53; PULSE 87; RESP 14; TEMP 36.8; O2SAT 97
--- NOTE | 2025-08-17 15:04 | P.NPUPN_ITS ---
Subjective NPU 2 Subjective: 40-year-old female with a long history o f mental illness admitted after overdosing on hydroxyzine. She continued to report having chronic problems with her memory. She stated that she was feeling much better today. She appeared to understand that she was not a good candidate to return back to her living facility upon discharge. She had reported having periods where she would dissociate and reported that she had problems with her memory for several years. She was unable to describe any recent stressors or changes that may have led her to taking those pills. She had reported that she had no legitimate recollection of how many pills she had taken. The staff particular the nurses had noted that the patient would often come and ask for as needed medications shortly after being given that as needed medication a few minutes earlier. She appeared to have no recollection of having received that medication just 10 minutes prior to that time. She reports that she has frequent recollections and flashbacks regarding her trauma. She reports that she continues to have nightmares. She had endorsed having periods of derealization and depersonalization described. Mental Status Exam 2 MSE Comments: This is an overweight white female in hospital scrubs with poor grooming but adequate eye contact looking her stated age with poor dentition. No abnormal involuntary motor movements except for psychomotor retardation. She was cooperative with exam in mild to moderate distress. Speech was normal in rate and normal in volume with improved spontaneity Mood described as ok. Affect was flat. Thought process was linear but superficial. Thought content: The patient denied any suicidal or homicidal ideation. There was signficant poverty of content. There was no evidence of delusional thinking. She did not appear to be responding to internal stimuli. There were no delusions reported. She did not appear to be attending to internal stimuli. Attention and concentration were limited and memory appeared unreliable but none were formally tested. She is alert and oriented to person and place, month and year. Insight, judgment and impulse control are impaired. Immediate registration 3/3, recall after 5 minutes was 2/3. Vitals/I&O/Wt Last Vital Signs Temp 98.3 F 08/17/25 06:00 Pulse 65 08/17/25 06:00 Resp 18 08/17/25 06:00 BP 100/58 08/17/25 06:00 Pulse Ox 97 08/17/25 06:00 O2 Del Method Room Air 08/17/25 06:00 Data NPU 08/15/25 09:05 08/15/25 09:05 A&P Assessment and plan 1. Bipolar depression: 2. Acute psychosis: 3. Suicidal ideation: 4. Matilda: 5. PTSD (post-traumatic stress disorder): Plan: This is a 40-year-old white female recent disharge here less than a week ago presents with nearly similar overdose of hydroxyzine with bizarre presentation today with no evidence of matilda but possible depression unable to provide meaningful information regarding her return here other than I couldn't sleep. 1. Restart outpatient medications. 2. Continue every 15 minute checks for safety. 3. Encourage individual, group and milieu therapies. 4. Encourage sober living treatment after discharge at the highest level of care to which she is willing to commit. 5. Obtain collateral information. 6. Evaluate against the backdrop of the 96-hour hold. Consider [facility] evaluation for independent living skills. PDMP PDMP Reviewed: Not Reviewed Involuntary Hold Information 2 Hold Status: Legal Status: 96 Hour Hold Date/Time Hold Expires: 08/19/25 @ 09:45 Attestations NPU 2 Medical Necessity Statement*: Inpatient hospitalization is medically necessary and deemed to be the clinically appropriate intervention at this time. We will monitor and initiate medications while making changes as indicated. Her likely length of stay is 5-7 days. Coding Level of Care Code Acute Code for [facility] Fwd Diagnoses Bipolar depression F31.9 Acute psychosis F23 Suicidal ideation R45.851 Matilda F30.9 PTSD (post-traumatic stress disorder) F43.10
[2025-08-17 19:33] VITALS: BP 104/75; PULSE 100; RESP 16; TEMP 36.7; O2SAT 95
[2025-08-18 06:00] VITALS: BP 123/82; PULSE 105; RESP 18; TEMP 36.7; O2SAT 97
[2025-08-18] MEDS: paliperidone ER 9 mg Tablet PO (08:25)
[2025-08-18] MEDS: venlafaxine ER (24HR) 150 mg Capsule PO (08:26)
[2025-08-18 14:00] VITALS: BP 110/71; PULSE 104; RESP 17; TEMP 37.3; O2SAT 94
--- NOTE | 2025-08-18 15:02 | P.NPUPN_ITS ---
Subjective NPU 2 Subjective: 40-year-old female with a long history o f mental illness admitted after overdosing on hydroxyzine. Patient was isolative on the milieu. She was able to attend groups. She continued to report having problems with remembering things and reported having anxiety frequently requesting medications to manage her worries. The patient had endorsed having a past history of memory problems and stated that at the age of 11 she had coughed an excessive amount of some air solvent leading to what she described as problems with her memory. She reported some sleep continuity disruption. She had reported that she continued to have occasional intense recollections regarding her trauma. She had expressed interest in considering routine and weekly psychotherapy to target her PTSD symptoms. She had reported having some flashbacks at this time. Mental Status Exam 2 MSE Comments: This is an overweight white female in hospital scrubs with poor grooming but adequate eye contact looking her stated age with poor dentition. No abnormal involuntary motor movements except for psychomotor retardation. She was cooperative with exam in mild to moderate distress. Speech was normal in rate and normal in volume with improved spontaneity Mood described as anxious. Affect was mood congruent and anxious. Thought process was linear but superficial. Thought content: The patient denied any suicidal or homicidal ideation. There was signficant poverty of content. There was no evidence of delusional thinking. She did not appear to be responding to internal stimuli. There were no delusions reported. She did not appear to be responding to internal stimuli. Attention and concentration were limited and memory appeared unreliable but none were formally tested. She is alert and oriented to person and place, month and year. Insight, judgment and impulse control are impaired. Vitals/I&O/Wt Last Vital Signs Temp 99.1 F 08/18/25 14:00 Pulse 104 H 08/18/25 14:00 Resp 17 08/18/25 14:00 BP 110/71 08/18/25 14:00 Pulse Ox 94 08/18/25 14:00 O2 Del Method Room Air 08/18/25 14:00 Data NPU 08/15/25 09:05 08/15/25 09:05 A&P Assessment and plan 1. Bipolar depression: 2. Acute psychosis: 3. Suicidal ideation: 4. Matilda: 5. PTSD (post-traumatic stress disorder): Plan: This is a 40-year-old white female recent disharge here less than a week ago presents with nearly similar overdose of hydroxyzine with bizarre presentation today with no evidence of matilda but possible depression unable to provide meaningful information regarding her return here other than I couldn't sleep. 1. Continue Zyprexa and palperidone as prescribed. 2. Continue every 15 minute checks for safety. 3. Encourage individual, group and milieu therapies. 4. Encourage sober living treatment after discharge at the highest level of care to which she is willing to commit. 5. Obtain collateral information. 6. Ordered [facility] evaluation for independent living skills. Filed 21 day paperwork. PDMP PDMP Reviewed: Not Reviewed Involuntary Hold Information 2 Hold Status: Legal Status: 96 Hour Hold Date/Time Hold Expires: 08/19/25 @ 09:45 Attestations NPU 2 Medical Necessity Statement*: Inpatient hospitalization is medically necessary and deemed to be the clinically appropriate intervention at this time. We will monitor and initiate medications while making changes as indicated. Her likely length of stay is 5-7 days. Coding Level of Care Code Acute Code for [facility] Fw Diagnoses Bipolar depression F31.9 Acute psychosis F23 Suicidal ideation R45.851 Matilda F30.9 PTSD (post-traumatic stress disorder) F43.10
[2025-08-18 20:34] VITALS: BP 104/71; PULSE 95; RESP 17; TEMP 36.9; O2SAT 97
[2025-08-19] MEDS: paliperidone ER 6 mg Tablet PO (10:22)
[2025-08-19] MEDS: venlafaxine ER (24HR) 150 mg Capsule PO (10:23)
--- NOTE | 2025-08-19 10:28 | PC.NURSE ---
Patient at nurses station getting morning medications. She is verbalizing anxiety rated 8/10. Patient is declining group this morning due to her anxiety.
[2025-08-19 14:00] VITALS: BP 105/70; PULSE 117; RESP 16; TEMP 36.9; O2SAT 95
--- NOTE | 2025-08-19 17:09 | P.NPUPN_ITS ---
Subjective NPU 2 Subjective: 40-year-old female with a long history o f mental illness admitted after overdosing on hydroxyzine. She had had a prior history of methamphetamine abuse. She had stated that she felt lightheaded at night and stated that she felt like she was chronically in a lower state of mind. She had reported having struggles with concentration. She had reported having problems with memory. She had not reported having many flashbacks. She had isolated on the milieu. She had reported that she often felt like she was out of her body. The patient had completed the ALL today. She reported no problems with feeling depressed today. She denied any racing thoughts. Mental Status Exam 2 MSE Comments: This is an overweight white female in hospital scrubs with poor grooming but adequate eye contact looking her stated age with poor dentition. No abnormal involuntary motor movements except for psychomotor retardation. She was cooperative with exam in mild to moderate distress. Speech was normal in rate and normal in volume with improved spontaneity Mood described as ok. Affect was more odd and subdued today. Thought process was linear but superficial. Thought content: The patient denied any suicidal or homicidal ideation. There was signficant poverty of content. There was no evidence of delusional thinking. She did not appear to be responding to internal stimuli. There were no delusions reported. She did not appear to be responding to internal stimuli. Attention and concentration were limited and memory appeared unreliable but none were formally tested. She is alert and oriented to person and place, month and year. Insight, judgment and impulse control are impaired. Vitals/I&O/Wt Last Vital Signs Temp 98.4 F 08/19/25 14:00 Pulse 117 H 08/19/25 14:00 Resp 16 08/19/25 14:00 BP 105/70 08/19/25 14:00 Pulse Ox 95 08/19/25 14:00 O2 Del Method Room Air 08/19/25 14:00 Data NPU 08/15/25 09:05 08/15/25 09:05 A&P Assessment and plan 1. Bipolar depression: 2. Acute psychosis: 3. Suicidal ideation: 4. Matilda: 5. PTSD (post-traumatic stress disorder): Plan: This is a 40-year-old white female recent disharge here less than a week ago presents with nearly similar overdose of hydroxyzine with bizarre presentation today with no evidence of matilda but possible depression unable to provide meaningful information regarding her return here other than I couldn't sleep. 1. Continue Paliperidone 6mg at night, d/c zyprexa. Continue Prazosin at 4mg at night for now. 2. Continue every 15 minute checks for safety. 3. Encourage individual, group and milieu therapies. 4. Encourage sober living treatment after discharge at the highest level of care to which she is willing to commit. 5. Obtain collateral information. 6. ALL testing revealed signficant problems in 8/12 areas with likely deficits leading to patient being currently unable to care for herself independently. PDMP PDMP Reviewed: Not Reviewed Involuntary Hold Information 2 Hold Status: Legal Status: 96 Hour Hold Date/Time Hold Expires: 08/19/25 @ 09:45 Attestations NPU 2 Medical Necessity Statement*: Inpatient hospitalization is medically necessary and deemed to be the clinically appropriate intervention at this time. We will monitor and initiate medications while making changes as indicated. Her likely length of stay is 7-10 days. Coding Level of Care Code Acute Code for [facility] Fwd Diagnoses Bipolar depression F31.9 Acute psychosis F23 Suicidal ideation R45.851 Matilda F30.9 PTSD (post-traumatic stress disorder) F43.10
[2025-08-19 20:21] VITALS: BP 97/66; PULSE 86; RESP 16; TEMP 36.7; O2SAT 96
[2025-08-20 06:00] VITALS: BP 123/83; PULSE 95; RESP 18; TEMP 36.8; O2SAT 97
[2025-08-20] MEDS: paliperidone ER 6 mg Tablet PO (08:26)
[2025-08-20] MEDS: venlafaxine ER (24HR) 150 mg Capsule PO (08:27)
--- NOTE | 2025-08-20 12:09 | P.NPUPN_ITS ---
Subjective NPU 2 Subjective: 40-year-old female with a long history o f mental illness admitted after overdosing on hydroxyzine. The patient had reported that her mood felt better but she continued to report that she felt groggy overnight and stated that she had felt lightheaded. She had denied any nightmares and requested a reduction in the prazosin. She had been rocking back and forth and stated that she did this as a way of coping with stress. She reported problems with PTSD on occasion. She had acknowledged having previously been diagnosed with bipolar depression. She continued to report having problems with her memory. She had requested numerous times to staff that she had been feeling anxious. She had denied any hallucinations or racing thoughts. She had minimized any sleep continuity disruption. Mental Status Exam 2 MSE Comments: This is an overweight white female in hospital scrubs with poor grooming but adequate eye contact looking her stated age with poor dentition. She had some rocking behavior. She was cooperative with exam in mild to moderate distress. Speech was normal in rate and normal in volume with improved spontaneity. Mood described as a little better. Affect remained restricted in range. Thought process was linear but superficial. Thought content: The patient denied any suicidal or homicidal ideation. There was signficant poverty of content. There was no evidence of delusional thinking. She did not appear to be responding to internal stimuli. There were no delusions reported. She did not appear to be responding to internal stimuli. Attention and concentration were limited and memory appeared unreliable but none were formally tested. She is alert and oriented to person and place, month and year. Insight, judgment and impulse control are impaired. Vitals/I&O/Wt Last Vital Signs Temp 98.2 F 08/20/25 06:00 Pulse 95 08/20/25 06:00 Resp 18 08/20/25 06:00 BP 123/83 08/20/25 06:00 Pulse Ox 97 08/20/25 06:00 O2 Del Method Room Air 08/20/25 06:00 Data NPU 08/15/25 09:05 08/15/25 09:05 A&P Assessment and plan 1. Bipolar depression: 2. Acute psychosis: 3. Suicidal ideation: 4. Matilda: 5. PTSD (post-traumatic stress disorder): Plan: This is a 40-year-old white female recent disharge here less than a week ago presents with nearly similar overdose of hydroxyzine with bizarre presentation today with no evidence of matilda but possible depression unable to provide meaningful information regarding her return here other than I couldn't sleep. 1. Continue Paliperidone 6mg at night, d/c zyprexa. Reduce prazosin to 2mg at night. 2. Continue every 15 minute checks for safety. 3. Encourage individual, group and milieu therapies. 4. Encourage sober living treatment after discharge at the highest level of care to which she is willing to commit. 5. Obtain collateral information. 6. ALL testing revealed signficant problems in 8/12 areas with likely deficits leading to patient being currently unable to care for herself independently. Recommendation is for 24 hours supervision based on OT evaluation. PDMP PDMP Reviewed: Not Reviewed Involuntary Hold Information 2 Hold Status: Legal Status: 96 Hour Hold Date/Time Hold Expires: 08/19/25 @ 09:45 Attestations NPU 2 Medical Necessity Statement*: Inpatient hospitalization is medically necessary and deemed to be the clinically appropriate intervention at this time. We will monitor and initiate medications while making changes as indicated. Her likely length of stay is 7-10 days or longer as patient now not a candidate to go to [facility] with lack of supervision. Coding Level of Care Code Acute Code for [facility] Fwd Diagnoses Bipolar depression F31.9 Acute psychosis F23 Suicidal ideation R45.851 Matilda F30.9 PTSD (post-traumatic stress disorder) F43.10
[2025-08-20 14:00] VITALS: BP 113/75; PULSE 100; RESP 16; TEMP 36.7; O2SAT 96
[2025-08-20 20:28] VITALS: BP 119/81; PULSE 96; RESP 19; TEMP 36.8; O2SAT 97
[2025-08-21 05:59] VITALS: BMI 29.5
[2025-08-21 06:00] VITALS: BP 98/69; PULSE 80; RESP 17; TEMP 36.7; O2SAT 97
[2025-08-21] MEDS: venlafaxine ER (24HR) 150 mg Capsule PO (09:01)
[2025-08-21] MEDS: paliperidone ER 6 mg Tablet PO (09:01)
--- NOTE | 2025-08-21 12:26 | P.NPUPN_ITS ---
Subjective NPU 2 Subjective: 40-year-old female with a long history o f mental illness admitted after overdosing on hydroxyzine. The patient had reported a significant history of opiate dependence having used Suboxone for years and reported that it had been helpful for her cravings for methamphetamine. She continued to report having significant anxiety. She reported no suicidal thoughts. She had reported that she felt less groggy in the absence of Zyprexa last night. The patient had reported that she continued to feel nervous and anxious. She continued to report having problems with her memory. She had expressed an understanding that she struggled with living by herself due to her problems with memory and making good decisions. She had reported that she wished to go home to her mother but stated that she did not know if she was welcome there at this time. Mental Status Exam 2 MSE Comments: This is an overweight white female in hospital scrubs with poor grooming but adequate eye contact looking her stated age with poor dentition. She had no rocking behavior. She was cooperative with exam in mild to moderate distress. Speech was normal in rate and normal in volume with improved spontaneity. Mood described as anxious. Affect was anxious and mood congruent. Thought process was linear but superficial. Thought content: The patient denied any suicidal or homicidal ideation. There was signficant poverty of content. There was no evidence of delusional thinking. She did not appear to be responding to internal stimuli. There were no delusions reported. She did not appear to be responding to internal stimuli. Attention and concentration were limited and memory appeared unreliable but none were formally tested. She is alert and oriented to person and place, month and year. Insight, judgment and impulse control are impaired. Vitals/I&O/Wt Last Vital Signs Temp 98.1 F 08/21/25 06:00 Pulse 80 08/21/25 06:00 Resp 17 08/21/25 06:00 BP 98/69 08/21/25 06:00 Pulse Ox 97 08/21/25 06:00 O2 Del Method Room Air 08/21/25 06:00 Weight last 48 hrs Weight 88.11 kg Data NPU 08/15/25 09:05 08/15/25 09:05 A&P Assessment and plan 1. Bipolar depression: 2. Acute psychosis: 3. Suicidal ideation: 4. Matilda: 5. PTSD (post-traumatic stress disorder): Plan: This is a 40-year-old white female recent disharge here less than a week ago presents with nearly similar overdose of hydroxyzine with bizarre presentation today with no evidence of matilda but possible depression unable to provide meaningful information regarding her return here other than I couldn't sleep. 1. Continue Paliperidone 6mg at night, d/c zyprexa. Continue prazosin to 2mg at night. Reduce effexor xr to 112.5mg daily. 2. Continue every 15 minute checks for safety. 3. Encourage individual, group and milieu therapies. 4. Encourage sober living treatment after discharge at the highest level of care to which she is willing to commit. 5. Obtain collateral information. 6. ALL testing revealed signficant problems in 8/12 areas with likely deficits leading to patient being currently unable to care for herself independently. Recommendation is for 24 hours supervision based on OT evaluation. PDMP PDMP Reviewed: Not Reviewed Involuntary Hold Information 2 Hold Status: Legal Status: 96 Hour Hold Date/Time Hold Expires: 08/19/25 @ 09:45 Attestations NPU 2 Medical Necessity Statement*: Inpatient hospitalization is medically necessary and deemed to be the clinically appropriate intervention at this time. We will monitor and initiate medications while making changes as indicated. Her likely length of stay is 7-10 days or longer as patient now not a candidate to go to detention with lack of supervision. Coding Level of Care Code Acute Code for [facility] Fwd Diagnoses Bipolar depression F31.9 Acute psychosis F23 Suicidal ideation R45.851 Matilda F30.9 PTSD (post-traumatic stress disorder) F43.10
[2025-08-21 14:00] VITALS: BP 126/77; PULSE 107; RESP 16; TEMP 36.7; O2SAT 98
[2025-08-21 21:18] VITALS: BP 84/59; PULSE 93; RESP 16; TEMP 36.8; O2SAT 95
[2025-08-22 06:00] VITALS: BP 121/80; PULSE 99; RESP 17; TEMP 36.8; O2SAT 97
[2025-08-22] MEDS: venlafaxine ER (24HR) 37.5 mg Capsule 112.5 MG PO (09:42)
[2025-08-22] MEDS: paliperidone ER 6 mg Tablet PO (09:44)
[2025-08-22 14:00] VITALS: BP 119/75; PULSE 75; RESP 18; TEMP 36.7; O2SAT 99
--- NOTE | 2025-08-22 18:13 | P.NPUPN_ITS ---
Subjective NPU 2 Subjective: 40-year-old female with a long history o f mental illness admitted after overdosing on hydroxyzine. Patient has a history of psychotic disorder not otherwise specified and possible bipolar disorder along with a history of polysubstance abuse. She had reported having some cravings at times for methamphetamine. She had reported having increased problems with memory for several months. She had acknowledged that she struggled with being able to make good decisions and stated that she was no longer welcome at her home due to her significant substance use issues. Patient had appeared isolative on the milieu and reported anxiety throughout the day requesting something to help her with her worry. She had requested Klonopin or Suboxone. She had reported having limited memory regarding her previous medication regimen. Previous records were reviewed and the patient did appear to have had some evidence of matilda and concern existed as to whether Effexor or XR may be causing the increase cycling behavior. She had reported that she had felt less tired on her current medication regimen. The patient had remained agreeable to a change in her medication regimen and was also agreeable to considering being placed in a facility where her medications would be given to her and lieu of her living independently. She continued to endorse PTSD symptoms. She had reported having occasional nightmares. She had endorsed having flashbacks and intense recollection of her trauma. She had reported avoidance of places that reminded her of her trauma. Mental Status Exam 2 MSE Comments: This is an overweight white female in hospital scrubs with poor grooming but adequate eye contact looking her stated age with poor dentition. She was cooperative with exam in mild to moderate distress. Speech was normal in rate and normal in volume with improved spontaneity. Mood described as anxious. Affect was anxious and mood congruent. Thought process was linear but superficial. Thought content: The patient denied any suicidal or homicidal ideation. There was no evidence of delusional thinking. She did not appear to be responding to internal stimuli. There were no delusions reported. She did not appear to be responding to internal stimuli. Attention and concentration were limited and memory appeared unreliable but none were formally tested. She is alert and oriented to person and place, month and year. Insight, judgment and impulse control are impaired. Vitals/I&O/Wt Last Vital Signs Temp 98.0 F 08/22/25 14:00 Pulse 75 08/22/25 14:00 Resp 18 08/22/25 14:00 BP 119/75 08/22/25 14:00 Pulse Ox 99 08/22/25 14:00 O2 Del Method Room Air 08/22/25 14:00 Weight last 48 hrs Weight 88.11 kg Data NPU 08/15/25 09:05 08/15/25 09:05 A&P Assessment and plan 1. Bipolar depression: 2. Acute psychosis: 3. Suicidal ideation: 4. Matilda: 5. PTSD (post-traumatic stress disorder): Plan: This is a 40-year-old white female recent disharge here less than a week ago presents with nearly similar overdose of hydroxyzine with bizarre presentation today with no evidence of matilda but possible depression unable to provide meaningful information regarding her return here other than I couldn't sleep. 1. Continue Paliperidone 6mg at night, d/c zyprexa. Continue prazosin to 2mg at night. Continue effexor xr to 112.5mg daily with plan to reduce effexor xr 75mg daily in 1-2 days. 2. Continue every 15 minute checks for safety. Patient now on 21 day hold, seeking placement at retirement. 3. Encourage individual, group and milieu therapies. 4. Encourage sober living treatment after discharge at the highest level of care to which she is willing to commit. 5. Obtain collateral information. 6. ALL testing revealed signficant problems in 8/12 areas with likely deficits leading to patient being currently unable to care for herself independently. Recommendation is for 24 hours supervision based on OT evaluation. PDMP PDMP Reviewed: Not Reviewed Involuntary Hold Information 2 Hold Status: Legal Status: 96 Hour Hold Date/Time Hold Expires: 08/19/25 @ 09:45 Attestations NPU 2 Medical Necessity Statement*: Inpatient hospitalization is medically necessary and deemed to be the clinically appropriate intervention at this time. We will monitor and initiate medications while making changes as indicated. Her likely length of stay is 7-10 days or longer as patient now not a candidate to go to [facility] with lack of supervision. Coding Level of Care Code Acute Code for [facility] Fwd Diagnoses Bipolar depression F31.9 Acute psychosis F23 Suicidal ideation R45.851 Matilda F30.9 PTSD (post-traumatic stress disorder) F43.10
[2025-08-22 20:02] VITALS: BP 94/61; PULSE 74; RESP 15; TEMP 36.5; O2SAT 96
[2025-08-23 06:00] VITALS: BP 91/59; PULSE 73; RESP 15; TEMP 36.8; O2SAT 97
[2025-08-23] MEDS: paliperidone ER 6 mg Tablet PO (08:02)
[2025-08-23] MEDS: venlafaxine ER (24HR) 37.5 mg Capsule 112.5 MG PO (08:03)
[2025-08-23 13:20] VITALS: BP 108/73; PULSE 97; RESP 18; TEMP 36.7; O2SAT 97
--- NOTE | 2025-08-23 16:25 | P.NPUPN_ITS ---
Subjective NPU 2 Subjective: 40-year-old female with a long history o f mental illness admitted after overdosing on hydroxyzine. The patient continues to report feeling anxious. She had reported having struggles with her memory. Patient had endorsed a recent history of matilda only. She had reported that she had no supports left in her family given her history of continued methamphetamine use that had affected her ability to make good decisions. She remained agreeable to considering a detention. She had reported that she was having struggles with tolerating being here. She had reported that she was uncertain as to whether these medications were helpful for her. She was able to attend groups today. She had denied any racing thoughts. She continued to endorse depression. Mental Status Exam 2 MSE Comments: This is an overweight white female in hospital scrubs with poor grooming but adequate eye contact looking her stated age with poor dentition. She was cooperative with exam in moderate distress. Speech was normal in rate and normal in volume with improved spontaneity. Mood described as anxious. Affect was tearful today. Thought process was linear but superficial. Thought content: The patient denied any suicidal or homicidal ideation. There was no evidence of delusional thinking. She did not appear to be responding to internal stimuli. There were no delusions reported. She did not appear to be responding to internal stimuli. Attention and concentration were limited and memory appeared unreliable but none were formally tested. She is alert and oriented to person and place, month and year. Insight, judgment and impulse control are impaired. Vitals/I&O/Wt Last Vital Signs Temp 98.1 F 08/23/25 13:20 Pulse 97 08/23/25 13:20 Resp 18 08/23/25 13:20 BP 108/73 08/23/25 13:20 Pulse Ox 97 08/23/25 13:20 O2 Del Method Room Air 08/23/25 13:20 Data NPU 08/15/25 09:05 08/15/25 09:05 A&P Assessment and plan 1. Bipolar depression: 2. Acute psychosis: 3. Suicidal ideation: 4. Matilda: 5. PTSD (post-traumatic stress disorder): Plan: This is a 40-year-old white female recent disharge here less than a week ago presents with nearly similar overdose of hydroxyzine with bizarre presentation today with no evidence of matilda but possible depression unable to provide meaningful information regarding her return here other than I couldn't sleep. 1. Continue Paliperidone 6mg at night, d/c zyprexa. Continue prazosin to 2mg at night. Continue effexor xr to 112.5mg daily with plan to reduce effexor xr 75mg daily in 1-2 days. Add lamotrigine 50mg at night. 2. Continue every 15 minute checks for safety. Patient now on 21 day hold, seeking placement at detention. 3. Encourage individual, group and milieu therapies. 4. Encourage sober living treatment after discharge at the highest level of care to which she is willing to commit. 5. Obtain collateral information. 6. ALL testing revealed signficant problems in 8/12 areas with likely deficits leading to patient being currently unable to care for herself independently. Recommendation is for 24 hours supervision based on OT evaluation. Patient awaiting [facility] evaluation that will facilitate placement in detention. PDMP PDMP Reviewed: Not Reviewed Involuntary Hold Information 2 Hold Status: Legal Status: 21 Day Hold Date/Time Hold Expires: 09/12/2025 Attestations NPU 2 Medical Necessity Statement*: Inpatient hospitalization is medically necessary and deemed to be the clinically appropriate intervention at this time. We will monitor and initiate medications while making changes as indicated. Her likely length of stay is 7-10 days or longer as patient now not a candidate to go to nursing home with lack of supervision. Coding Level of Care Code Acute Code for Chg Fwd Diagnoses Bipolar depression F31.9 Acute psychosis F23 Suicidal ideation R45.851 Matilda F30.9 PTSD (post-traumatic stress disorder) F43.10
[2025-08-23 22:00] VITALS: BP 108/64; PULSE 91; RESP 16; TEMP 36.8; O2SAT 96
[2025-08-24 06:00] VITALS: BP 103/62; PULSE 80; RESP 18; TEMP 36.8; O2SAT 95
[2025-08-24] MEDS: venlafaxine ER (24HR) 37.5 mg Capsule 112.5 MG PO (08:46)
[2025-08-24] MEDS: paliperidone ER 6 mg Tablet PO (08:46)
[2025-08-24 14:00] VITALS: BP 109/74; PULSE 97; RESP 18; TEMP 36.8; O2SAT 98
--- NOTE | 2025-08-24 14:39 | P.NPUPN_ITS ---
Subjective NPU 2 Subjective: 40-year-old female with a long history o f mental illness admitted after overdosing on hydroxyzine. The patient continued to endorse anxiety. She had reported that she felt that she would like to go to a rehabilitation center to help her better recover from her chronic methamphetamine use. She had reported that she had been off of methamphetamine for only a month. She had reported that she was sleeping a little bit better. She had continued to require prompting to complete activities of daily living. She had continued to appear to have problems with remembering whether or not she had taken medications. She reported no side effects from her current medication regimen. She had appeared to isolate herself on the milieu although she was able to attend some therapy here on the unit. She had reported having struggles with being in crowds. Mental Status Exam 2 MSE Comments: This is an overweight white female in hospital scrubs with poor grooming but adequate eye contact looking her stated age with poor dentition. She was cooperative with exam in moderate distress. Speech was normal in rate and normal in volume with improved spontaneity. Mood described as okay. Affect was restricted in range. Thought process was linear but superficial. Thought content: The patient denied any suicidal or homicidal ideation. There was no evidence of delusional thinking. She did not appear to be responding to internal stimuli. There were no delusions reported. Attention and concentration were limited and memory appeared unreliable but none were formally tested. She is alert and oriented to person and place, month and year. Insight, judgment are poor. and impulse control is limited. Vitals/I&O/Wt Last Vital Signs Temp 98.2 F 08/24/25 06:00 Pulse 80 08/24/25 06:00 Resp 18 08/24/25 06:00 BP 103/62 08/24/25 06:00 Pulse Ox 95 08/24/25 06:00 O2 Del Method Room Air 08/24/25 06:00 Data NPU 08/15/25 09:05 08/15/25 09:05 A&P Assessment and plan 1. Bipolar depression: 2. Acute psychosis: 3. Suicidal ideation: 4. Matilda: 5. PTSD (post-traumatic stress disorder): Plan: This is a 40-year-old white female recent disharge here less than a week ago presents with nearly similar overdose of hydroxyzine with bizarre presentation today with no evidence of matilda but possible depression unable to provide meaningful information regarding her return here other than I couldn't sleep. 1. Continue Paliperidone 6mg at night, d/c zyprexa. Continue prazosin to 2mg at night. Decrease effexor xr to 75mg daily today. Continue lamotrigine 50mg at night. 2. Continue every 15 minute checks for safety. Patient now on 21 day hold, seeking placement at long term. 3. Encourage individual, group and milieu therapies. 4. Encourage sober living treatment after discharge at the highest level of care to which she is willing to commit. 5. Obtain collateral information. 6. ALL testing revealed signficant problems in 8/12 areas with likely deficits leading to patient being currently unable to care for herself independently. Recommendation is for 24 hours supervision based on OT evaluation. Patient awaiting [facility] evaluation that will facilitate placement in long term. Consider placement at substance abuse rehabilitation facility PDMP PDMP Reviewed: Not Reviewed Involuntary Hold Information 2 Hold Status: Legal Status: 21 Day Hold Date/Time Hold Expires: 09/12/2025 Attestations NPU 2 Medical Necessity Statement*: Inpatient hospitalization is medically necessary and deemed to be the clinically appropriate intervention at this time. We will monitor and initiate medications while making changes as indicated. Her likely length of stay is 5- 7 days or longer as patient now not a candidate to go to half-way with lack of supervision. Coding Level of Care Code Acute Code for Chg Fwd Diagnoses Bipolar depression F31.9 Acute psychosis F23 Suicidal ideation R45.851 Matilda F30.9 PTSD (post-traumatic stress disorder) F43.10
[2025-08-24 22:00] VITALS: BP 106/68; PULSE 84; RESP 16; TEMP 36.6; O2SAT 98
[2025-08-25 06:00] VITALS: BP 104/62; PULSE 89; RESP 16; TEMP 36.8; O2SAT 96
[2025-08-25] MEDS: venlafaxine ER (24HR) 75 mg Capsule PO (08:26)
[2025-08-25] MEDS: paliperidone ER 6 mg Tablet PO (08:26)
--- NOTE | 2025-08-25 12:55 | P.NPUPN_ITS ---
Subjective NPU 2 Subjective: 40-year-old female with a long history o f mental illness admitted after overdosing on hydroxyzine. The patient appeared to tolerate the reduction in Effexor without incident. She continued to complain of anxiety. She continued to report having problems with memory. She had reported a significant history of opiate abuse as well along with her methamphetamine use. She had reported previous benefits from taking Suboxone to reduce her cravings for opiates. She had continued to report having struggles with managing her anxiety. She continue to require prompting to complete activities of daily living. The patient was informed that there would be an evaluation virtually to determine her level of care on August 30, 2025. She had expressed desire to consider substance abuse rehabilitation services in [place] or [place]. She had appeared less isolative on the milieu. She had reported struggles with being in crowds and reported having social anxiety. The patient continued to endorse anxiety. She reported difficulties falling asleep on occasion continue to report having occasional nightmares and recurring thoughts about her trauma. Mental Status Exam 2 MSE Comments: This is an overweight white female in hospital scrubs with poor grooming but adequate eye contact looking her stated age with poor dentition. She was cooperative with exam in moderate distress. Speech was normal in rate and normal in volume with improved spontaneity. Mood described as anxious. Affect was mood congruent and anxious. Thought process was linear but superficial. Thought content: The patient denied any suicidal or homicidal ideation. There was no evidence of delusional thinking. She did not appear to be responding to internal stimuli. There were no delusions reported. Attention and concentration were limited and memory appeared unreliable but none were formally tested. She is alert and oriented to person and place, month and year. Insight and judgment are poor. Her impulse control is limited. Vitals/I&O/Wt Last Vital Signs Temp 98.3 F 08/25/25 06:00 Pulse 89 08/25/25 06:00 Resp 16 08/25/25 06:00 BP 104/62 08/25/25 06:00 Pulse Ox 96 08/25/25 06:00 O2 Del Method Room Air 08/25/25 06:00 Data NPU 08/15/25 09:05 08/15/25 09:05 A&P Assessment and plan 1. Bipolar depression: 2. Acute psychosis: 3. Suicidal ideation: 4. Matilda: 5. PTSD (post-traumatic stress disorder): Plan: This is a 40-year-old white female recent disharge here less than a week ago presents with nearly similar overdose of hydroxyzine with bizarre presentation today with no evidence of matilda but possible depression unable to provide meaningful information regarding her return here other than I couldn't sleep. 1. Continue Paliperidone 6mg at night, d/c zyprexa. Continue prazosin to 2mg at night. Continue effexor xr taper at 75mg daily today. Start Prozac 10mg daily. Continue lamotrigine 50mg at night. Initiate Suboxone 4/1mg SL bid. 2. Continue every 15 minute checks for safety. Patient now on 21 day hold, seeking placement at retirement. 3. Encourage individual, group and milieu therapies. 4. Encourage sober living treatment after discharge at the highest level of care to which she is willing to commit. 5. Obtain collateral information. 6. ALL testing revealed signficant problems in 8/12 areas with likely deficits leading to patient being currently unable to care for herself independently. Recommendation is for 24 hours supervision based on OT evaluation. Patient awaiting [facility] evaluation that will facilitate placement in retirement. Consider placement at substance abuse rehabilitation facility. PDMP PDMP Reviewed: Not Reviewed Involuntary Hold Information 2 Hold Status: Legal Status: 21 Day Hold Date/Time Hold Expires: 09/12/2025 Attestations NPU 2 Medical Necessity Statement*: Inpatient hospitalization is medically necessary and deemed to be the clinically appropriate intervention at this time. We will monitor and initiate medications while making changes as indicated. Her likely length of stay is 5- 7 days or longer as patient now not a candidate to go to skilled nursing with lack of supervision. Coding Level of Care Code Acute Code for Chg Fwd Diagnoses Bipolar depression F31.9 Acute psychosis F23 Suicidal ideation R45.851 Matilda F30.9 PTSD (post-traumatic stress disorder) F43.10
[2025-08-25 14:00] VITALS: BP 113/77; PULSE 99; RESP 18; TEMP 36.9; O2SAT 97
[2025-08-25] MEDS: buprenorphine-naloxone 4-1 mg Film 1 EACH SUBLINGUAL (17:01)
[2025-08-25 19:46] VITALS: BP 123/85; PULSE 92; RESP 18; TEMP 36.4; O2SAT 96
--- NOTE | 2025-08-25 21:33 | PC.NURSE ---
Talk to Dr. Dennis about giving an other dose of zofran before th q6 was up and he approved. The believed cause is suboxone causing the nausea.
[2025-08-25] MEDS: LORazepam 1 MG/0.5 ML injection 2 MG IM (23:46)
[2025-08-25] MEDS: diphenhydrAMINE 50 mg/mL SDV 1mL IM (23:47)
--- NOTE | 2025-08-26 06:04 | PC.NURSE ---
vs not completed per nurse as pt is finally resting after a very long night, resp 16
[2025-08-26] MEDS: paliperidone ER 6 mg Tablet PO (08:10)
[2025-08-26] MEDS: venlafaxine ER (24HR) 75 mg Capsule PO (08:10)
[2025-08-26] MEDS: buprenorphine-naloxone 4-1 mg Film 1 EACH SUBLINGUAL ×2 (08:11→17:10)
[2025-08-26] MEDS: promethazine 25 mg/mL SDV 1 mL IM (12:24)
[2025-08-26 14:00] VITALS: BP 87/55; PULSE 85; RESP 14; TEMP 36.9; O2SAT 92
--- NOTE | 2025-08-26 14:15 | W.PM.NPUPNS ---
Subjective NPU Subjective: Patient presented today reporting that things are okay. She endorsed having some anxiety but reported that she feels she is doing better here. We discussed her ALL evaluation leading to some concerns about her independent functioning. We discussed that the weekend is upon us and that we will be no discharges or placements over the weekend that we would continue to attempt to find appropriate resources for her. She denied any side effects to medication. Mental Status Exam MSE Comments: This is an overweight white female in hospital scrubs with poor grooming but adequate eye contact looking her stated age with poor dentition. She was cooperative with exam in moderate distress. Speech was normal in rate and normal in volume with improved spontaneity. Mood described as anxious. Affect was mood congruent and anxious. Thought process was linear but superficial. Thought content: The patient denied any suicidal or homicidal ideation. There was no evidence of delusional thinking. She did not appear to be responding to internal stimuli. There were no delusions reported. Attention and concentration were limited and memory appeared unreliable but none were formally tested. She is alert and oriented to person and place, month and year. Insight and judgment are poor. Her impulse control is limited. Vitals/I&O/Wt Last Vital Signs Temp 98.5 F 08/26/25 14:00 Pulse 85 08/26/25 14:00 Resp 14 08/26/25 14:00 BP 87/55 08/26/25 14:00 Pulse Ox 92 08/26/25 14:00 O2 Del Method Room Air 08/26/25 14:00 Data NPU 08/15/25 09:05 08/15/25 09:05 A&P Assessment and plan 1. Bipolar depression: 2. Acute psychosis: 3. Suicidal ideation: 4. Matilda: 5. PTSD (post-traumatic stress disorder): Plan: This is a 40-year-old white female recent disharge here less than a week ago presents with nearly similar overdose of hydroxyzine with bizarre presentation today with no evidence of matilda but possible depression unable to provide meaningful information regarding her return here other than I couldn't sleep. 1. Continue Paliperidone 6mg at night, d/c zyprexa. Continue prazosin to 2mg at night. Continue effexor xr taper at 75mg daily today. Start Prozac 10mg daily. Continue lamotrigine 50mg at night. Initiate Suboxone 4/1mg SL bid. 2. Continue every 15 minute checks for safety. Patient now on 21 day hold, [facility]. 3. Encourage individual, group and milieu therapies. 4. Encourage sober living treatment after discharge at the highest level of care to which she is willing to commit. 5. Obtain collateral information. 6. ALL testing revealed signficant problems in 8/12 areas with likely deficits leading to patient being currently unable to care for herself independently. Recommendation is for 24 hours supervision based on OT evaluation. Patient awaiting [facility] evaluation that will facilitate placement in penitentiary. Consider placement at substance abuse rehabilitation facility. PDMP PDMP Reviewed: Not Reviewed Involuntary Hold Information Hold Status: Legal Status: 21 Day Hold Date/Time Hold Expires: 09/12/2025 Attestations NPU Medical Necessity Statement*: Inpatient hospitalization is medically necessary and the clinically appropriate intervention at this time. We will monitor and initiate medications and make changes as indicated. Her likely length of stay is 5-7 days or longer as patient now not a candidate to go to skilled nursing with lack of supervision. Coding Level of Care Code Acute Code for g Fwd Diagnoses Bipolar depression F31.9 Acute psychosis F23 Suicidal ideation R45.851 Matilda F30.9 PTSD (post-traumatic stress disorder) F43.10
[2025-08-26 20:09] VITALS: BP 94/60; PULSE 94; RESP 17; TEMP 36.9; O2SAT 92
[2025-08-27 06:00] VITALS: BP 99/62; PULSE 114; RESP 16; TEMP 37.4; O2SAT 90
[2025-08-27] MEDS: venlafaxine ER (24HR) 75 mg Capsule PO (08:28)
[2025-08-27] MEDS: buprenorphine-naloxone 4-1 mg Film 1 EACH SUBLINGUAL ×2 (08:28→17:08)
[2025-08-27] MEDS: paliperidone ER 6 mg Tablet PO (08:28)
--- NOTE | 2025-08-27 10:37 | W.PM.NPUPNS ---
Subjective NPU Subjective: Patient presented today reporting that she is doing okay. We discussed the nausea that she was experiencing seems to have some temporal relationship to her Suboxone dosing which is new. We discussed the possibility of decreasing the dose versus discontinuing the medication if this continues. Otherwise she endorsed just feeling sick but we both acknowledge that this could be relation to this medication change. Otherwise she denied any issues or any side effects to the medication. Mental Status Exam MSE Comments: This is an overweight white female in hospital scrubs with poor grooming but adequate eye contact looking her stated age with poor dentition. She was cooperative with exam in moderate distress. Speech was normal in rate and normal in volume with improved spontaneity. Mood described as anxious. Affect was mood congruent and anxious. Thought process was linear but superficial. Thought content: The patient denied any suicidal or homicidal ideation. There was no evidence of delusional thinking. She did not appear to be responding to internal stimuli. There were no delusions reported. Attention and concentration were limited and memory appeared unreliable but none were formally tested. She is alert and oriented to person and place, month and year. Insight and judgment are poor. Her impulse control is limited. Vitals/I&O/Wt Last Vital Signs Temp 99.4 F 08/27/25 06:00 Pulse 114 H 08/27/25 06:00 Resp 16 08/27/25 06:00 BP 99/62 08/27/25 06:00 Pulse Ox 90 08/27/25 06:00 O2 Del Method Room Air 08/27/25 06:00 Data NPU 08/15/25 09:05 08/15/25 09:05 A&P Assessment and plan 1. Bipolar depression: 2. Acute psychosis: 3. Suicidal ideation: 4. Matilda: 5. PTSD (post-traumatic stress disorder): Plan: This is a 40-year-old white female recent disharge here less than a week ago presents with nearly similar overdose of hydroxyzine with bizarre presentation today with no evidence of matilda but possible depression unable to provide meaningful information regarding her return here other than I couldn't sleep. 1. Continue Paliperidone 6mg at night, d/c zyprexa. Continue prazosin to 2mg at night. Continue effexor xr taper at 75mg daily today. Start Prozac 10mg daily. Continue lamotrigine 50mg at night. Initiate Suboxone 4/1mg SL bid. Will likely put the Suboxone on hold as she is having nausea and vomiting which seems to be related to that. 2. Continue every 15 minute checks for safety. Patient now on 21 day hold, seeking placement at long-term. 3. Encourage individual, group and milieu therapies. 4. Encourage sober living treatment after discharge at the highest level of care to which she is willing to commit. 5. Obtain collateral information. 6. ALL testing revealed signficant problems in 8/12 areas with likely deficits leading to patient being currently unable to care for herself independently. Recommendation is for 24 hours supervision based on OT evaluation. Patient awaiting [facility] evaluation that will facilitate placement in long-term. Consider placement at substance abuse rehabilitation facility. PDMP PDMP Reviewed: Not Reviewed Involuntary Hold Information Hold Status: Legal Status: 21 Day Hold Date/Time Hold Expires: 09/12/2025 Attestations NPU Medical Necessity Statement*: Inpatient hospitalization is medically necessary and the clinically appropriate intervention at this time. We will monitor and initiate medications and make changes as indicated. Her likely length of stay is 4-6 days or longer as patient now not a candidate to go to retirement with lack of supervision. Coding Level of Care Code Acute Code for [facility] Fwd Diagnoses Bipolar depression F31.9 Acute psychosis F23 Suicidal ideation R45.851 Matilda F30.9 PTSD (post-traumatic stress disorder) F43.10
[2025-08-27 13:38] VITALS: BP 110/74; PULSE 95; RESP 16; O2SAT 91
[2025-08-27 20:07] VITALS: BP 97/64; PULSE 105; RESP 17; TEMP 36.9; O2SAT 92
[2025-08-27] MEDS: promethazine 25 mg/mL SDV 1 mL IM (23:17)
[2025-08-28 01:30] LABS: Coronavirus 229E,HKU1,NL63,OC4 Not Detected (NOT DETECT); Parainfluenza Virus Type 1 Not Detected (NOT DETECT); Parainfluenza Virus Type 2 Not Detected (NOT DETECT); Parainfluenza Virus Type 3 Not Detected (NOT DETECT); Parainfluenza Virus Type 4 Not Detected (NOT DETECT); SARS-COV-2 Not Detected (NOT DETECT)
[2025-08-28 06:00] VITALS: BP 117/70; PULSE 110; RESP 18; TEMP 36.5; O2SAT 94; BMI 29.8
[2025-08-28] MEDS: venlafaxine ER (24HR) 75 mg Capsule PO (07:41)
[2025-08-28] MEDS: paliperidone ER 6 mg Tablet PO (07:41)
--- NOTE | 2025-08-28 13:43 | P.NPUPN_ITS ---
Subjective NPU 2 Subjective: Patient presented today reporting that she is feeling fine overall but is wanting to have that safety the Suboxone as a treatment. However she once again had episodes of emesis after the medication was started but there is also concern that she might be sick be agreed to hold the medication after discussion of the risks, benefits and alternatives she understood and agreed to proceed as documented. We discussed the possibility of starting half a dose tomorrow and seeing if she has a same reaction. Otherwise she denied any side effects or other medication reports she is feeling better. Mental Status Exam 2 MSE Comments: This is an overweight white female in hospital scrubs with poor grooming but adequate eye contact looking her stated age with poor dentition. She was cooperative with exam in moderate distress. Speech was normal in rate and normal in volume with improved spontaneity. Mood described as anxious. Affect was mood congruent and anxious. Thought process was linear but superficial. Thought content: The patient denied any suicidal or homicidal ideation. There was no evidence of delusional thinking. She did not appear to be responding to internal stimuli. There were no delusions reported. Attention and concentration were limited and memory appeared unreliable but none were formally tested. She is alert and oriented to person and place, month and year. Insight and judgment are poor. Her impulse control is limited. Vitals/I&O/Wt Last Vital Signs Temp 97.7 F 08/28/25 06:00 Pulse 110 H 08/28/25 06:00 Resp 18 08/28/25 06:00 BP 117/70 08/28/25 06:00 Pulse Ox 94 08/28/25 06:00 O2 Del Method Room Air 08/28/25 06:00 Weight last 48 hrs Weight 89.131 kg Data NPU 08/15/25 09:05 08/15/25 09:05 A&P PDMP PDMP Reviewed: Not Reviewed Involuntary Hold Information 2 Hold Status: Legal Status: 21 Day Hold Date/Time Hold Expires: 09/12/2025 Attestations NPU 2 Medical Necessity Statement*: Inpatient hospitalization is medically necessary and the clinically appropriate intervention at this time. We will monitor and initiate medications and make changes as indicated. Her likely length of stay is 4-6 days or longer as patient now not a candidate to go to group home with lack of supervision. Coding Level of Care Code Acute Code for Kenneth Frazier
[2025-08-28 13:49] VITALS: BP 104/73; PULSE 96; RESP 16; TEMP 36.8; O2SAT 95
[2025-08-28 20:58] VITALS: BP 93/60; PULSE 85; RESP 17; TEMP 37; O2SAT 94
--- NOTE | 2025-08-29 05:33 | PC.NURSE ---
08/27/25 2251 IM Phenergan ordered by Dr. Lopez r/t vomiting episodes, et Flu/Covid panel labs as well. Suboxone ordered to be held until source of illness might be determined.
--- NOTE | 2025-08-29 05:35 | PC.NURSE ---
08/28/[address] Lopez notified of negative results of resp panel. Suboxone con't. held r/t symptoms presenting.
[2025-08-29 06:00] VITALS: BP 118/81; PULSE 80; RESP 18; TEMP 36.9; O2SAT 95
--- NOTE | 2025-08-29 08:07 | W.PM.NPUPNS ---
Subjective NPU Subjective: Patient presented today reporting that she is feeling a bit better. We discussed the risks, benefits and alternatives of not restarting the Suboxone given how she was feeling and she understood and agreed to proceed as is documented in this note. But she was talking about being constipated and so we discussed getting a KUB and identifying what things look like from that perspective and then making a plan from there. She was fine but that is the plan. We discussed this program that has been identified for her to go to and she expressed openness to do that but we needed to get some additional information that she needs to do for interviews and she understands that process. She denied any side effects to her medications. Mental Status Exam MSE Comments: This is an overweight white female in hospital scrubs with poor grooming but adequate eye contact looking her stated age with poor dentition. She was cooperative with exam in moderate distress. Speech was normal in rate and normal in volume with improved spontaneity. Mood described as a little better, affect was mood congruent and anxious. Thought process was linear but superficial. Thought content: The patient denied any suicidal or homicidal ideation. There was no evidence of delusional thinking. She did not appear to be responding to internal stimuli. There were no delusions reported. Attention and concentration were limited and memory appeared unreliable but none were formally tested. She is alert and oriented to person and place, month and year. Insight and judgment are poor. Her impulse control is limited. Vitals/I&O/Wt Last Vital Signs Temp 98.5 F 08/29/25 06:00 Pulse 80 08/29/25 06:00 Resp 18 08/29/25 06:00 BP 118/81 08/29/25 06:00 Pulse Ox 95 08/29/25 06:00 O2 Del Method Room Air 08/29/25 06:00 Weight last 48 hrs Weight 89.131 kg Data NPU 08/15/25 09:05 08/15/25 09:05 A&P Assessment and plan 1. Bipolar depression: 2. Acute psychosis: 3. Suicidal ideation: 4. Matilda: 5. PTSD (post-traumatic stress disorder): Plan: This is a 40-year-old white female recent disharge here less than a week ago presents with nearly similar overdose of hydroxyzine with bizarre presentation today with no evidence of matilda but possible depression unable to provide meaningful information regarding her return here other than I couldn't sleep. 1. Continue Paliperidone 6mg at night, d/c zyprexa. Continue prazosin to 2mg at night. Continue effexor xr taper at 75mg daily today. Start Prozac 10mg daily. Continue lamotrigine 50mg at night. Initiate Suboxone 4/1mg SL bid. Will likely put the Suboxone on hold as she is having nausea and vomiting which seems to be related to that. 2. Continue every 15 minute checks for safety. Patient now on 21 day hold, seeking placement at snf. 3. Encourage individual, group and milieu therapies. 4. Encourage sober living treatment after discharge at the highest level of care to which she is willing to commit. 5. Obtain collateral information. 6. ALL testing revealed signficant problems in 8/12 areas with likely deficits leading to patient being currently unable to care for herself independently. Recommendation is for 24 hours supervision based on OT evaluation. Patient awaiting [facility] evaluation that will facilitate placement in snf. Consider placement at substance abuse rehabilitation facility. 7. Possibly identified a facility that would be appropriate and that would manage the home rehab planning. Patient has to do interview with the state and possibly the program but possibility for discharge this week. PDMP PDMP Reviewed: Not Reviewed Involuntary Hold Information Hold Status: Legal Status: 21 Day Hold Date/Time Hold Expires: 09/12/2025 Attestations NPU Medical Necessity Statement*: Inpatient hospitalization is medically necessary and the clinically appropriate intervention at this time. We will monitor and initiate medications and make changes as indicated. Her likely length of stay is 2-4 days or longer as patient now not a candidate to go to [facility] with lack of supervision. Coding Level of Care Code Acute Code for Chg Fwd Diagnoses Bipolar depression F31.9 Acute psychosis F23 Suicidal ideation R45.851 Matilda F30.9 PTSD (post-traumatic stress disorder) F43.10
[2025-08-29] MEDS: paliperidone ER 6 mg Tablet PO (08:41)
[2025-08-29] MEDS: venlafaxine ER (24HR) 75 mg Capsule PO (08:41)
[2025-08-29] MEDS: polyethylene glycol 3350 Pkt 17 gm PO (12:34)
[2025-08-29 14:00] VITALS: BP 113/73; PULSE 103; RESP 16; TEMP 36.6; O2SAT 94
--- NOTE | 2025-08-29 16:30 | XRR_ITS ---
PROCEDURE INFORMATION: Exam: XR Abdomen Exam date and time: 08/29/2025 5:10 PM Age: 40 years old Clinical indication: Constipation; Prior surgery; Surgery date: 6+ months; Surgery type: Fallopian tube TECHNIQUE: Imaging protocol: Radiologic exam of the abdomen. Views: Frontal supine view of the abdomen. 1 View. COMPARISON: CT abdomen pelvis w con* [id number] 07/24/2025 12:24 AM FINDINGS: Gastrointestinal tract: Prominent stool in the colon, compatible with stated history of constipation, no definite small bowel obstruction. Bones/joints: Unremarkable. XR/XR abdomen 1V* [id number] IMPRESSION: Prominent stool in the colon, compatible with stated history of constipation, no definite small bowel obstruction.
[2025-08-29 19:53] VITALS: BP 133/89; PULSE 93; RESP 16; TEMP 36.4; O2SAT 95
[2025-08-30 06:00] VITALS: BP 119/81; PULSE 89; RESP 16; TEMP 36.6; O2SAT 96
[2025-08-30] MEDS: venlafaxine ER (24HR) 75 mg Capsule PO (08:00)
[2025-08-30] MEDS: polyethylene glycol 3350 Pkt 17 gm PO (08:00)
[2025-08-30] MEDS: paliperidone ER 6 mg Tablet PO (08:00)
[2025-08-30 14:00] VITALS: BP 141/74; PULSE 78; RESP 16; TEMP 37; O2SAT 96
--- NOTE | 2025-08-30 16:05 | P.NPUPN_ITS ---
Subjective NPU 2 Subjective: Patient presented today reporting that she is doing okay. She identifies that she is compared to move forward with the plan for her going to the sober living program. Afterwards she will have a clear plan for follow-up. She feels that she is ready and denied any side effects to the medication. She understands a plan for discharge tomorrow. Mental Status Exam 2 MSE Comments: This is an overweight white female in hospital scrubs with poor grooming but adequate eye contact looking her stated age with poor dentition. She was cooperative with exam in mild distress. Speech was normal in rate and normal in volume with improved spontaneity. Mood described as better, affect was mood congruent and less anxious. Thought process was linear but superficial. Thought content: The patient denied any suicidal or homicidal ideation. There was no evidence of delusional thinking. She did not appear to be responding to internal stimuli. There were no delusions reported. Attention and concentration were limited and memory appeared unreliable but none were formally tested. She is alert and oriented to person and place, month and year. Insight and judgment are poor. Her impulse control is limited. Vitals/I&O/Wt Last Vital Signs Temp 98.6 F 08/30/25 14:00 Pulse 78 08/30/25 14:00 Resp 16 08/30/25 14:00 BP 141/74 08/30/25 14:00 Pulse Ox 96 08/30/25 14:00 O2 Del Method Room Air 08/30/25 14:00 Data NPU 08/15/25 09:05 08/15/25 09:05 A&P Assessment and plan 1. Bipolar depression: 2. Acute psychosis: 3. Suicidal ideation: 4. Matilda: 5. PTSD (post-traumatic stress disorder): Plan: This is a 40-year-old white female recent disharge here less than a week ago presents with nearly similar overdose of hydroxyzine with bizarre presentation today with no evidence of matilda but possible depression unable to provide meaningful information regarding her return here other than I couldn't sleep. 1. Continue Paliperidone 6mg at night, d/c zyprexa. Continue prazosin to 2mg at night. Continue effexor xr taper at 75mg daily today. Start Prozac 10mg daily. Continue lamotrigine 50mg at night. Initiate Suboxone 4/1mg SL bid. Will likely put the Suboxone on hold as she is having nausea and vomiting which seems to be related to that. 2. Continue every 15 minute checks for safety. Patient now on 21 day hold, seeking placement at longterm. 3. Encourage individual, group and milieu therapies. 4. Encourage sober living treatment after discharge at the highest level of care to which she is willing to commit. 5. Obtain collateral information. 6. ALL testing revealed signficant problems in 8/12 areas with likely deficits leading to patient being currently unable to care for herself independently. Recommendation is for 24 hours supervision based on OT evaluation. Patient awaiting [facility] evaluation that will facilitate placement in longterm. Consider placement at substance abuse rehabilitation facility. 7. Possibly identified a facility that would be appropriate and that would manage the home rehab planning. Patient has to do interview with the state and possibly the program but possibility for discharge this week. Plan for discharge tomorrow. PDMP PDMP Reviewed: Not Reviewed Involuntary Hold Information 2 Hold Status: Legal Status: 21 Day Hold Date/Time Hold Expires: 09/12/2025 Attestations NPU 2 Medical Necessity Statement*: Inpatient hospitalization is medically necessary and the clinically appropriate intervention at this time. We will monitor and initiate medications and make changes as indicated. Her likely length of stay is 1 day. Coding Level of Care Code Acute Code for g Fwd Diagnoses Bipolar depression F31.9 Acute psychosis F23 Suicidal ideation R45.851 Matilda F30.9 PTSD (post-traumatic stress disorder) F43.10
--- NOTE | 2025-08-30 16:37 | PC.NURSE ---
First attempt at the fleet enema failed, pt insisted on preforming the task on her own. Positioning was wrong and fluid didn't flow inside.
--- NOTE | 2025-08-30 19:06 | PC.NURSE ---
Assisted pt with mineral oil enema in room, no issues noted, pt tolerated well.
--- NOTE | 2025-08-30 20:14 | P.CONIM_ITS ---
Providers/Reason For Consult 2 Consulting Physician/Specialty*: VICTOR MANUEL WALL DO --hospitalist Reason for Consult*: Constipation Requesting Physician: Dr. Lopez--psychiatrist Attending Physician: Bienvenido Dennis MD History of Present Illness History of Present Illness Kenyetta Sommer is a 40 year old female with medical history significant for chronic longstanding constipation who goes to the bathroom to move bowels only once a week and that is the patient's norm. Patient had been in the psych sood and had not moved bowel for the second week. For that reason I was being called to evaluate patient and treat his constipation. Patient had had a KUB that did not show any small bowel obstruction and has shown normal gas pattern. Patient feels lower abdominal mild pain that she normally feels when she is getting beyond a week not moving bowel. Patient has been seen and evaluated and abdomen soft nontender nondistended but has subjective abdominal mild pain just below the umbilicus. Otherwise patient is fine. The patient is with history of bipolar disorder who was recently discharged on 08/12/2025 from the neuropsychiatric unit but presented this time for an admission because of taking overdose of medication for a need to get some sleep. Patient then was admitted to further evaluate and treat in the psych sood. Patient had had bipolar disorder, suicidal ideation and PTSD in the past. Patient is under the care of psychiatrist for these aforementioned problems Patient is in second week of not moving bowel and I have initiated patient on a 40 g of lactulose and also Dulcolax suppository 10 mg now and then to follow-up with lactulose 30 mg Q 6 x 4 doses. It must be noted that patient also moves bowels only once a week. This scenario she said is not new to her. Will monitor hopefully for patient to move bowel tonight. This patient should be at a baseline with Colace and senna daily. Review of Systems 2 Narrative: System review upon 10 organ review were entirely unremarkable except for the GI tract regarding constipation otherwise unremarkable Medications/Allergies Home Medications ?Medication ?Instructions ?Recorded ?Confirmed ?Last Taken ?Type amoxicillin 500 mg capsule 500 mg PO TID 6 days #17 ca ps 08/12/25 08/15/25 08/15/25 05:00 Rx paliperidone 9 mg tablet,extended 9 mg PO DAILY 14 day s #14 tabs 08/12/25 08/15/25 08/15/25 04:00 Rx release 24 hr prazosin 2 mg capsule 4 mg (2 x 2 mg) PO BEDTIME 3 0 days 08/12/25 08/15/25 08/14/25 22:00 Rx #60 caps venlafaxine 150 mg 150 mg PO DAILY 30 days #30 caps 08/12/25 08/15/25 08/15/25 04:00 Rx capsule,extended release 24 hr docusate sodium 100 mg capsule 100 mg PO DAILY PRN Con stipation 08/30/25 Unknown Rx 30 days #30 caps fluoxetine 20 mg capsule 20 mg PO DAILY 30 days #30 c aps 08/30/25 Unknown Rx hydroxyzine HCl 50 mg tablet 50 mg PO BID PRN Anxiety 30 days 08/30/25 Unknown Rx #60 tabs lamotrigine 25 mg tablet 50 mg (2 x 25 mg) PO 2100 30 days 08/30/25 Unknown Rx #60 tabs olanzapine 5 mg disintegrating 5 mg PO DAILY PRN 08/30 Unknown Rx tablet Agitation/Psychosis #30 tabs paliperidone 6 mg tablet,extended 6 mg PO DAILY 10 day s #10 tabs 08/30/25 Unknown Rx release 24 hr paliperidone palmitate 234 mg/1.5 234 mg (1.5 mL) IM Q 30D 30 days 08/30/25 Unknown Rx mL intramuscular syringe (Invega #1.5 mL Sustenna) polyethylene glycol 3350 17 gram 17 g PO DAILY 30 days #17 grams 08/30/25 Unknown Rx oral powder packet prazosin 1 mg capsule 2 mg (2 x 1 mg) PO BEDTIME 3 0 days 08/30/25 Unknown Rx #60 caps venlafaxine 37.5 mg 37.5 mg PO DAILY 14 days #14 caps 08/30/25 Unknown Rx capsule,extended release 24 hr (Effexor XR) Allergies Allergy/AdvReac Type Severity Reaction Status Date / Time haloperidol (From Haldol) Allergy Unknown Verified 07/23/25 21:50 trazodone AdvReac Severe ADR-Nightma Verified 08/09/25 21:23 re any psych med Allergy Unknown Uncoded 07/23/25 21:50 Current Medications Generic Name Dose Route Start Last Admin Trade Name Freq PRN Reason Stop Dose Admin Acetaminophen 650 mg 08/15/25 12:29 08/30/25 06:25 Acetaminophen 325 Mg Tablet PO 650 mg Q4H PRN Administration MILD PAIN Diphenhydramine HCl 50 mg 08/15/25 12:29 08/25/25 23:47 Diphenhydramine 50 Mg/Ml Sdv 1ml IM 50 mg Q4H PRN Administration Severe Aggression Docusate Sodium 100 mg 08/20/25 17:55 08/29/25 08:41 Docusate Sodium 100 Mg Capsule PO 100 mg DAILY PRN Administration CONSTIPATION Fluoxetine HCl 10 mg 08/26/25 09:00 08/30/25 08:00 Fluoxetine 10 Mg Capsule PO 10 mg DAILY TYSON Administration Hydroxyzine Pamoate 50 mg 08/15/25 12:29 08/30/25 18:54 Hydroxyzine 25 Mg Capsule PO 50 mg Q6H PRN Administration ANXIETY Ibuprofen 600 mg 08/15/25 12:29 08/30/25 11:30 Ibuprofen 600 Mg Tablet PO 600 mg Q6H PRN Administration MODERATE PAIN Lamotrigine 50 mg 08/23/25 21:00 08/29/25 19:37 Lamotrigine 25 Mg Tablet PO 50 mg 2100 TYSON Administration Lorazepam 2 mg 08/15/25 12:29 08/25/25 23:46 Lorazepam 1 Mg/0.5 Ml Injection IM 2 mg Q4H PRN Administration Severe Aggression Magnesium Hydroxide 15 ml 08/28/25 08:03 08/29/25 09:17 Magnesium Hydroxide 30 Ml Udc PO 15 ml DAILY PRN Administration CONSTIPATION Nicotine 1 patch 08/15/25 12:29 08/25/25 09:05 Nicotine 21 Mg Patch TRANSDERMA 1 patch DAILY PRN Administration NICOTINE WITHDRAWAL Nicotine Polacrilex 2 mg 08/15/25 12:29 08/30/25 13:59 Nicotine 2 Mg Gum BUCCAL 2 mg Q2H PRN Administration NICOTINE WITHDRAWAL Nicotine Polacrilex 4 mg 08/17/25 08:42 08/30/25 16:33 Nicotine 4 Mg Lozenge MUCOUS MEM 4 mg Q2H PRN Administration NICOTINE CRAVINGS Olanzapine 5 mg 08/15/25 12:29 08/30/25 16:33 Olanzapine 5 Mg Odt PO 5 mg Q4H PRN Administration Agitation/Psychosis Ondansetron HCl 4 mg 08/15/25 12:29 08/27/25 21:10 Ondansetron 4 Mg Tablet PO 4 mg Q6H PRN Administration NAUSEA AND VOMITING Paliperidone 6 mg 08/19/25 09:00 08/30/25 08:00 Paliperidone Er 6 Mg Tablet PO 6 mg DAILY TYSON Administration Polyethylene Glycol 17 gm 08/29/25 12:00 08/30/25 08:00 Polyethylene Glycol 3350 Pkt 17 Gm PO 17 gm DAILY TYSON Administration Prazosin HCl 2 mg 08/26/25 21:00 08/29/25 19:37 Prazosin 1 Mg Capsule PO 2 mg BEDTIME TYSON Administration Vitals/I&O/Wt Last Vital Signs Temp 98.6 F 08/30/25 14:00 Pulse 78 08/30/25 14:00 Resp 16 08/30/25 14:00 BP 141/74 08/30/25 14:00 Pulse Ox 96 08/30/25 14:00 O2 Del Method Room Air 08/30/25 14:00 Physical Exam 2 Narrative: Generally patient looks well in no apparent distress, answering the questions very pleasantly and maintaining eye contact HEENT normocephalic atraumatic neck neck is supple cardiovascular heart is regular lungs are pretty much clear abdomen soft nontender nondistended unremarkable extremities are intact no edema has good pulses neurology has no focality lab studies lab studies have been reviewed and noted. Lab studies noted with dose of 08/15/2025. Data 08/15/25 09:05 08/15/25 09:05 A&P Assessment and plan 1. Constipation by delayed colonic transit: 2. PTSD (post-traumatic stress disorder): 3. Bipolar depression: 4. Suicide attempt by multiple drug overdose: 5. Drug overdose: 6. Bipolar disorder with severe sari: 7. Sari: 8. Acute psychosis: Plan: Longstanding constipation - Patient normally is to have bowel movement only once a week - This time patient is going into the second week not moving bowel and for that reason the psych unit asked Patient to be evaluated - Goal is to move bowels tonight with 40 g of lactulose and 10 mg of Dulcolax suppository x 1 - Must have bowel regimen of Colace 100 mg twice daily and senna 1 tablet twice daily for this patient - Must monitor and treat. Other chronic psychiatric illness such as: Acute psychosis/sari/suicidal attempt/bipolar disorder with severe sari/PTSD-I deferred to the primary team who is managing patient's psychiatric problems Appreciate you allowing me to participate in the care of your patient we will follow-up to make sure patient had moved about today and after today patient can continue with bowel regimen of Colace and senna as ordered. PDMP PDMP Reviewed: Last Reviewed 08/30/25 20:29 by Joanna Beauchamp MD Coding Level of Care Code 79655 Diagnoses Constipation by delayed colonic transit K59.01 PTSD (post-traumatic stress disorder) F43.10 Bipolar depression F31.9 Suicide attempt by multiple drug overdose T50.912A Drug overdose T50.901A Bipolar disorder with severe sari F31.13 Sari F30.9 Acute psychosis F23 Time Spent (min) 60
[2025-08-30 20:37] VITALS: BP 127/80; PULSE 84; RESP 20; TEMP 36.6; O2SAT 97
[2025-08-30] MEDS: lactulose oral liq 20 gm/30 mL UDC 40 GM PO (20:52)
[2025-08-30] MEDS: lactulose oral liq 20 gm/30 mL UDC 30 GM PO (20:52)
[2025-08-31] MEDS: lactulose oral liq 20 gm/30 mL UDC 30 GM PO ×2 (02:20→08:01)
[2025-08-31 06:00] VITALS: BP 117/73; PULSE 86; RESP 16; TEMP 36.8; O2SAT 93
[2025-08-31] MEDS: paliperidone ER 6 mg Tablet PO (08:01)
[2025-08-31] MEDS: sennosides-docusate Tablet 1 TAB PO (08:01)
[2025-08-31] MEDS: venlafaxine ER (24HR) 37.5 mg Capsule PO (08:01)
[2025-08-31 09:19] VITALS: BP 117/73; PULSE 86; RESP 16; TEMP 36.8; O2SAT 93
--- NOTE | 2025-08-31 13:21 | P.PN_ITS ---
Subjective 2 Subjective: Had BM overnight. Vitals/I&O/Wt Last Vital Signs Temp 98.3 F 08/31/25 09:19 Pulse 86 08/31/25 09:19 Resp 16 08/31/25 09:19 BP 117/73 08/31/25 09:19 Pulse Ox 93 08/31/25 09:19 O2 Del Method Room Air 08/31/25 06:00 Physical Exam 2 Const: COMMON NORMALS: no acute distress, average body habitus and patient oriented x3 HENMT: COMMON NORMALS: normocephalic and atraumatic HEAD & SCALP: n ormocephalic and atraumatic Eye: COMMON NORMALS: Equal, round and reactive pupils present PUPIL: Yes Equal, round and reactive pupils present Resp: COMMON NORMALS: normal respiratory effort and No retractions Cardio: COMMON NORMALS: regular rate, regular rhythm, S1 normal heart sound present, S2 normal heart sound present, No gallops present (Cardio), No murmurs present (Cardio), No rub (Cardio) and Peripheral pulses 2+ throughout RATE: r egular rate RHYTHM: regular rhythm HEART SOUNDS: S1 normal heart sound present and S2 normal heart sound present PERIPHERAL PULSES: Peripheral pulses 2+ throughout GI: INSPECTION: Yes other (mild diffuse tenderness and distention) Extremity: COMMON NORMALS: full ROM and no clubbing, cyanosis or edema Neuro: COMMON NORMALS: patient oriented x3 Psych: COMMON NORMALS: mental status grossly normal Data 08/15/25 09:05 08/15/25 09:05 A&P Assessment and plan 1. Constipation by delayed colonic transit: 2. Bipolar depression: 3. PTSD (post-traumatic stress disorder): 4. Suicide attempt by multiple drug overdose: 5. Drug overdose: 6. Bipolar disorder with severe matilda: 7. Matilda: 8. Acute psychosis: Plan: 40 year old female presenting to psychiatric sood for SI, hospitalists consulted for chronic constipation. 1. Constipation by delayed colonic transit: - Longstanding constipation, patient states she only has one bowel movement per week normally, now going into the second week not moving bowel and for that reason the psych unit asked Patient to be evaluated - given bowel regimen including 40 g of lactulose and 10 mg of Dulcolax suppository x 1 - cont. colace 100 mg twice daily and senna 1 tablet twice daily for this patient - patient reports good sized bowel movement over night. Discussed with patient that she can continue miralax and stool softener at home at baseline and can add PRNs such as mag citrate or other such medications including superiorities or enema as needed, goal to have BM about once per day. These medications are over the counter. PTSD (post-traumatic stress disorder): Bipolar depression: Suicide attempt by multiple drug overdose: Drug overdose: Bipolar disorder with severe matilda: Matilda: Acute psychosis: - mgmt per psychiatry. Disposition - Had BM, discharge planning per psychiatric team as appropriate. PDMP PDMP Reviewed: Not Reviewed Attestations 2 Medical Necessity Statement*: Discharge planning per psychiatric team as appropriate. Time Spent in Patient Care: 16 - 35 minutes (>than 50% of time sp ent in counselling and/or direct pt care on unit) . Coding Level of Care Code Acute Code for Chg Fwd Diagnoses Constipation by delayed colonic transit K59.01 Bipolar depression F31.9 PTSD (post-traumatic stress disorder) F43.10 Suicide attempt by multiple drug overdose T50.912A Drug overdose T50.901A Bipolar disorder with severe matilda F31.13 Matilda F30.9 Acute psychosis F23
== END 2025-08-31 10:26 | disposition home or self-care (01) | DRG 918 ==
LOC: ER 10:14 → ICU 11:19 → ER IP 11:19 → NP 11:19
PROVIDERS: Psychiatry & Neurology Psychiatry; Admitting Provider Internal Medicine; Emergency Provider Family Medicine; Visit Provider Psychiatry & Neurology Psychiatry
DX: T43.592A Poisoning by other antipsychotics and neuroleptics, intentional self-harm, initial encounter (principal); F31.2 Bipolar disorder, current episode manic severe with psychotic features; F41.9 Anxiety disorder, unspecified; E66.3 Overweight; Z68.29 Body mass index [BMI] 29.0-29.9, adult; F43.10 Post-traumatic stress disorder, unspecified; R11.2 Nausea with vomiting, unspecified; K59.00 Constipation, unspecified
CPT/HCPCS: 36416; 71045; 74018; 80053; 80306; 80307; 81001; 82962; 83735; 83880; 85025; 87486; 87581; 87633; 93005; 93970; 96372; 97150; 97165; 97167; 99285; J0573; J1200; J2060; J2550; J9999; Q0162